=== PATIENT | male | born 1955 | race Two or more races ===

== ENCOUNTER 2021-01-12 12:16 | Outpatient (REF) | payer MEDICARE, SELFPAY ==
[2021-01-12 13:20] LABS: Alanine Aminotransferase 21 U/L (0-40); Albumin Level 4.4 g/dL (3.5-5.0); Alkaline Phosphatase 73 U/L (39-117); Aspartate Amino Transferase 23 U/L (5-37); Bilirubin Direct 0.2 mg/dL (0.0-0.5); Bilirubin Total 0.6 mg/dL (0.0-1.0); Cholesterol 167 mg/dL; Glucose Fasting 127 mg/dL (60-99); HDL Cholesterol 67 mg/dL; LDL Cholesterol Calculated 92 mg/dl; Total Protein 6.9 g/dL (6.5-8.0); Triglycerides 44 mg/dL
[2021-01-12 13:52] LABS: Estimated Average Glucose 140 mg/dL; Hemoglobin A1c % 6.5 %
== END 2021-01-12 12:17 | disposition home or self-care (01) ==
LOC: HO.LNP 12:16
PROVIDERS: PCP Internal Medicine; Visit Provider Internal Medicine
DX: E11.9 Type 2 diabetes mellitus without complications (principal); E78.00 Pure hypercholesterolemia, unspecified
CPT/HCPCS: 80061; 80076; 82947; 83036

== ENCOUNTER 2021-07-18 10:34 | Outpatient (REF) | payer MEDICARE, SELFPAY ==
[2021-07-18 10:38] LABS: MANUAL DIFF FLAG NO
[2021-07-18 10:47] LABS: Basophils Absolute Auto 0.1 X10*3/uL (0.0-0.2); Eosinophils Absolute Auto 0.2 X10*3/uL (0.0-0.4); Eosinophils Percent Auto 2.7 % (0-4); Hematocrit 43.9 % (42-52); Hemoglobin 14.6 g/dl (14.0-18.0); Imm Gran Abs Auto 0.02 X10*3/uL (0.00-0.03); Imm Gran Pct Auto 0.2 % (0.0-0.4); Lymphocytes Absolute Auto 2.4 X10*3/uL (1.2-4.9); Lymphocytes Percent Auto 27.1 % (20-40); Mean Corpuscular HGB Conc 33.3 g/dl (31.0-36.0); Mean Corpuscular Hemoglobin 30.2 pg (27.0-33.0); Mean Corpuscular Volume 90.7 fL (80-98); Mean Platelet Volume 9.3 fL (9.4-12.4); Monocytes Absolute Auto 0.8 X10*3/uL (0.1-1.2); Monocytes Percent Auto 8.6 % (2-11); Neutrophils Absolute Auto 5.3 X10*3/uL (2.0-8.3); Neutrophils Percent Auto 60.4 % (45-73); Platelet Count 348 X10*3/uL (160-400); Red Blood Count 4.84 X10*6/uL (4.60-5.80); Red Cell Distribution Width 13.2 % (11.0-16.0); White Blood Count 8.8 X10*3/uL (4.8-10.8)
[2021-07-18 10:57] LABS: Glucose Urine UA NEG (NEG); Leukocyte Esterase Urine NEG (NEG); Nitrite Urine NEG (NEG); Urine Blood NEG (NEG); Urine Ketones NEG (NEG); Urine Protein NEG (NEG-TRACE)
[2021-07-18 11:00] LABS: Estimated Average Glucose 140 mg/dL; Hemoglobin A1c % 6.5 %
[2021-07-18 11:03] LABS: Appearance Urine CLEAR; Color Urine YELLOW
[2021-07-18 11:48] LABS: Alanine Aminotransferase 20 U/L (0-40); Albumin Level 4.5 g/dL (3.5-5.0); Alkaline Phosphatase 64 U/L (39-117); Anion Gap 13 (12-20); Aspartate Amino Transferase 17 U/L (5-37); Bilirubin Total 0.4 mg/dL (0.0-1.0); Blood Urea Nitrogen 24 mg/dL (9-16); Calcium 9.5 mg/dL (8.4-10.2); Carbon Dioxide 27 mmol/L (22-29); Chloride 104 mmol/L (96-108); Cholesterol 183 mg/dL; Estimated Glomerular Filt Rate > 60; Glucose Fasting 140 mg/dL (60-99); HDL Cholesterol 76 mg/dL; LDL Cholesterol Calculated 86 mg/dl; Potassium 4.4 mmol/L (3.3-5.1); Sodium 140 mmol/L (135-145); Total Protein 7.2 g/dL (6.5-8.0); Triglycerides 106 mg/dL
[2021-07-18 11:59] LABS: Creatinine Urine 130.43 mg/dL; Microalbum/Creatinine Ratio Ur 6.1 ug/mg cr
[2021-07-18 13:12] LABS: Reflex LDLD? No
== END 2021-07-18 10:35 | disposition home or self-care (01) ==
LOC: HO.LNP 10:34
PROVIDERS: Visit Provider Internal Medicine
DX: Z00.00 Encounter for general adult medical examination without abnormal findings (principal); E78.00 Pure hypercholesterolemia, unspecified; E11.9 Type 2 diabetes mellitus without complications
CPT/HCPCS: 80053; 80061; 81003; 82043; 83036; 84153; 85025

== ENCOUNTER 2021-08-21 10:19 | Outpatient (REF) | payer MEDICARE, SELFPAY ==
[2021-08-21 11:03] LABS: Blood Urea Nitrogen 17 mg/dL (9-16); Estimated Glomerular Filt Rate > 60
[2021-08-21 11:25] LABS: Prostate Specific Antigen 2.06 ng/mL (<0.05-4.0)
== END 2021-08-21 10:20 | disposition home or self-care (01) ==
LOC: HO.LNP 10:19
PROVIDERS: Visit Provider Internal Medicine
DX: Z12.5 Encounter for screening for malignant neoplasm of prostate (principal); K58.0 Irritable bowel syndrome with diarrhea
CPT/HCPCS: 82565; 84153; 84520

== ENCOUNTER 2021-10-16 10:27 | Outpatient (REF) | payer MEDICARE, SELFPAY ==
[2021-10-16 11:29] LABS: PSA,Total (Free>4and<10) 1.94 ng/mL (0.00-4.00)
== END 2021-10-16 10:28 | disposition home or self-care (01) ==
LOC: HO.LNP 10:27
PROVIDERS: Visit Provider Internal Medicine
DX: R97.20 Elevated prostate specific antigen [PSA] (principal)
CPT/HCPCS: 84153

== ENCOUNTER 2022-01-18 11:07 | Outpatient (REF) | payer MEDICARE, SELFPAY ==
[2022-01-18 12:19] LABS: Estimated Average Glucose 163 mg/dL; Hemoglobin A1c % 7.3 %
[2022-01-18 12:33] LABS: Cholesterol 194 mg/dL; HDL Cholesterol 82 mg/dL; LDL Cholesterol Calculated 100 mg/dl; Triglycerides 61 mg/dL
== END 2022-01-18 11:08 | disposition home or self-care (01) ==
LOC: HO.LNP 11:07
PROVIDERS: PCP Internal Medicine; Visit Provider Internal Medicine
DX: E11.9 Type 2 diabetes mellitus without complications (principal); E78.00 Pure hypercholesterolemia, unspecified
CPT/HCPCS: 80061; 83036

== ENCOUNTER 2022-07-19 10:32 | Outpatient (REF) | payer MEDICARE, SELFPAY ==
[2022-07-19 10:42] LABS: MANUAL DIFF FLAG NO
[2022-07-19 11:02] LABS: Appearance Urine Clear; Color Urine Yellow; Glucose Urine UA Negative (Negative); Leukocyte Esterase Urine Negative (Negative); Nitrite Urine Negative (Negative); PH 5.5 (5.0-8.0); Specific Gravity - Urine 1.015 (1.005-1.025); Urine Blood Negative (Negative); Urine Ketones Negative (Negative); Urine Protein Negative (Neg-Trace)
[2022-07-19 11:05] LABS: Alanine Aminotransferase 26 U/L (0-40); Albumin Level 4.4 g/dL (3.5-5.0); Alkaline Phosphatase 69 U/L (39-117); Anion Gap 14 (12-20); Aspartate Amino Transferase 27 U/L (5-37); Bacteria Urine None Seen (None Seen); Bilirubin Total 0.5 mg/dL (0.0-1.0); Blood Urea Nitrogen 22 mg/dL (9-16); Calcium 9.8 mg/dL (8.4-10.2); Carbon Dioxide 27 mmol/L (22-29); Chloride 102 mmol/L (96-108); Cholesterol 188 mg/dL; Estimated Glomerular Filt Rate > 60; Glucose Fasting 140 mg/dL (60-99); HDL Cholesterol 84 mg/dL; Hyaline Casts Urine 0-2 /LPF (0-2); LDL Cholesterol Calculated 92 mg/dl; Potassium 4.5 mmol/L (3.3-5.1); RBC Urine 0-2 /HPF (0-2); Sodium 138 mmol/L (135-145); Squamous Epithelial Cell Urine 0-2 /HPF (0-2); Total Protein 7.2 g/dL (6.5-8.0); Triglycerides 62 mg/dL; WBC Urine 0-5 /HPF (0-5)
[2022-07-19 11:17] LABS: Estimated Average Glucose 148 mg/dL; Hemoglobin A1c % 6.8 %
[2022-07-19 11:19] LABS: Basophils Absolute Auto 0.1 X10*3/uL (0.0-0.2); Basophils Percent Auto 1.2 % (0-2); Eosinophils Absolute Auto 0.3 X10*3/uL (0.0-0.4); Eosinophils Percent Auto 3.5 % (0-4); Hematocrit 43.3 % (42.0-52.0); Hemoglobin 14.6 g/dl (14.0-18.0); Imm Gran Abs Auto 0.02 X10*3/uL (0.00-0.03); Imm Gran Pct Auto 0.2 % (0.0-0.4); Lymphocytes Absolute Auto 2.3 X10*3/uL (1.2-4.9); Lymphocytes Percent Auto 27.2 % (20-40); Mean Corpuscular HGB Conc 33.7 g/dl (31.0-36.0); Mean Corpuscular Hemoglobin 30.2 pg (27.0-33.0); Mean Corpuscular Volume 89.6 fL (80.0-98.0); Mean Platelet Volume 9.1 fL (9.4-12.4); Monocytes Absolute Auto 0.8 X10*3/uL (0.1-1.2); Monocytes Percent Auto 9.7 % (2-11); Neutrophils Absolute Auto 4.8 x10*3/uL (2.0-8.3); Neutrophils Percent Auto 58.2 % (45-73); Platelet Count 352 X10*3/uL (160-400); Red Blood Count 4.83 X10*6/uL (4.60-5.80); Red Cell Distribution Width 12.9 % (11.0-16.0); White Blood Count 8.3 X10*3/uL (4.8-10.8)
[2022-07-19 11:21] LABS: Creatinine Urine 59.57 mg/dL; Microalbumin Urine < 5.0 mg/L
[2022-07-19 11:22] LABS: PSA,Total (Free>4and<10) 2.19 ng/mL (0.00-4.00)
== END 2022-07-19 10:33 | disposition home or self-care (01) ==
LOC: HO.LNP 10:32
PROVIDERS: Visit Provider Internal Medicine
DX: Z00.00 Encounter for general adult medical examination without abnormal findings (principal); E11.9 Type 2 diabetes mellitus without complications; E78.00 Pure hypercholesterolemia, unspecified; Z12.5 Encounter for screening for malignant neoplasm of prostate
CPT/HCPCS: 80053; 80061; 81001; 82043; 83036; 84153; 85025

== ENCOUNTER 2022-08-15 15:01 | Outpatient (REF) | payer MEDICARE, SELFPAY ==
--- NOTE | ~2022-08-15 | XR_ITS ---
EXAMINATION: XR LUMBOSACRAL SPINE WITH OBLIQUES CLINICAL INFORMATION: Low back pain. Radiculopathy. COMPARISON: 06/22/2018 TECHNIQUE: AP, both oblique, and lateral views of the lumbar spine. Lateral view of the lumbosacral junction. FINDINGS: Multilevel lumbar degenerative disc disease is most pronounced at L5-S1, characterized by loss of intervertebral disc head with vacuum phenomenon, endplate osteophytes, and endplate sclerosis. There is more moderate degenerative disc disease at L2-L3 and mild degenerative disease at the other lumbar levels. Mild multilevel facet arthropathy. Vertebral body heights are normal. No fracture or spondylolisthesis. No pars defects. SI joints are normal. Soft tissues are unremarkable. XR/XR lumbar spine 4V min IMPRESSION: Multilevel degenerative disc disease in the lumbar spine, [id number] at L5-S1 and more moderate at L2-L3. No acute osseous findings.
== END 2022-08-15 15:02 | disposition home or self-care (01) ==
LOC: HO.XRAY 15:01
PROVIDERS: PCP Internal Medicine; Visit Provider Student in an Organized Health Care Education/Training Program
DX: M54.16 Radiculopathy, lumbar region (principal)
CPT/HCPCS: 72110

== ENCOUNTER → 2022-09-05 08:49 | Outpatient (BNVA) | payer MEDICARE, SELFPAY | PROVIDERS: PCP Internal Medicine; Referring Provider Internal Medicine; Visit Provider Surgery | DX: K64.5 Perianal venous thrombosis (principal) | CPT/HCPCS: 99202 ==

== ENCOUNTER 2023-01-18 11:17 | Outpatient (REF) | payer MEDICARE, SELFPAY ==
[2023-01-18 12:39] LABS: Estimated Average Glucose 166 mg/dL; Hemoglobin A1c % 7.4 %
[2023-01-18 13:17] LABS: Alanine Aminotransferase 15 U/L (0-40); Albumin Level 4.2 g/dL (3.5-5.0); Alkaline Phosphatase 64 U/L (39-117); Aspartate Amino Transferase 18 U/L (5-37); Bilirubin Direct 0.2 mg/dL (0.0-0.5); Bilirubin Total 0.6 mg/dL (0.0-1.0); Cholesterol 163 mg/dL; Glucose Fasting 148 mg/dL (60-99); HDL Cholesterol 68 mg/dL; LDL Cholesterol Calculated 84 mg/dl; Total Protein 6.6 g/dL (6.5-8.0); Triglycerides 58 mg/dL
[2023-01-18 13:43] LABS: Reflex LDLD? No
== END 2023-01-18 11:18 | disposition home or self-care (01) ==
LOC: HO.LNP 11:17
PROVIDERS: Visit Provider Internal Medicine
DX: E11.9 Type 2 diabetes mellitus without complications (principal); E78.00 Pure hypercholesterolemia, unspecified
CPT/HCPCS: 80061; 80076; 82947; 83036

== ENCOUNTER 2023-07-23 10:21 | Outpatient (REF) | payer MEDICARE, SELFPAY ==
[2023-07-23 10:25] LABS: MANUAL DIFF FLAG NO
[2023-07-23 10:32] LABS: Appearance Urine Clear; Color Urine Yellow; Glucose Urine UA Negative (Negative); Leukocyte Esterase Urine Negative (Negative); Nitrite Urine Negative (Negative); PH 5.5 (5.0-9.0); Specific Gravity - Urine 1.015 (1.005-1.025); Urine Blood Negative (Negative); Urine Ketones Negative (Negative); Urine Protein Negative (Neg-Trace)
[2023-07-23 10:34] LABS: Bacteria Urine None Seen (None Seen); Hyaline Casts Urine 0-2 /LPF (0-2); RBC Urine 0-2 /HPF (0-2); Squamous Epithelial Cell Urine 0-2 /HPF (0-2); WBC Urine 0-5 /HPF (0-5)
[2023-07-23 10:41] LABS: Alanine Aminotransferase 17 U/L (0-40); Albumin Level 4.1 g/dL (3.5-5.0); Alkaline Phosphatase 61 U/L (39-117); Anion Gap 12 (12-20); Aspartate Amino Transferase 23 U/L (5-37); Bilirubin Total 0.4 mg/dL (0.0-1.0); Blood Urea Nitrogen 18 mg/dL (9-16); Calcium 9.9 mg/dL (8.4-10.2); Carbon Dioxide 26 mmol/L (22-29); Chloride 106 mmol/L (96-108); Cholesterol 164 mg/dL (<200); Estimated Average Glucose 154 mg/dL; Estimated Glomerular Filt Rate > 60; Glucose Fasting 152 mg/dL (60-99); HDL Cholesterol 68 mg/dL (>40); LDL Cholesterol Calculated 84 mg/dL (<100); Potassium 4.1 mmol/L (3.3-5.1); Sodium 140 mmol/L (135-145); Total Protein 6.8 g/dL (6.5-8.0); Triglycerides 64 mg/dL (<150)
[2023-07-23 10:42] LABS: Basophils Absolute Auto 0.1 X10*3/uL (0.0-0.2); Basophils Percent Auto 1.8 % (0-2); Eosinophils Absolute Auto 0.3 X10*3/uL (0.0-0.4); Eosinophils Percent Auto 5.3 % (0-4); Hemoglobin 14.3 g/dl (14.0-18.0); Imm Gran Abs Auto 0.01 X10*3/uL (0.00-0.03); Imm Gran Pct Auto 0.2 % (0.0-0.4); Lymphocytes Percent Auto 31.3 % (20-40); Mean Corpuscular Hemoglobin 29.9 pg (27.0-33.0); Mean Corpuscular Volume 87.9 fL (80.0-98.0); Mean Platelet Volume 9.6 fL (9.4-12.4); Monocytes Absolute Auto 0.7 X10*3/uL (0.1-1.2); Monocytes Percent Auto 10.6 % (2-11); Neutrophils Absolute Auto 3.2 x10*3/uL (2.0-8.3); Neutrophils Percent Auto 50.8 % (45-73); Platelet Count 334 X10*3/uL (160-400); Red Blood Count 4.78 X10*6/uL (4.60-5.80); Red Cell Distribution Width 12.5 % (11.0-16.0); White Blood Count 6.2 X10*3/uL (4.8-10.8)
[2023-07-23 11:02] LABS: PSA,Total (Free>4and<10) 3.36 ng/mL (0.00-4.00)
[2023-07-23 11:05] LABS: Creatinine Urine 71.36 mg/dL; Microalbumin Urine < 5.0 mg/L
== END 2023-07-23 10:22 | disposition home or self-care (01) ==
LOC: HO.LNP 10:21
PROVIDERS: Visit Provider Internal Medicine
DX: Z00.00 Encounter for general adult medical examination without abnormal findings (principal); E11.9 Type 2 diabetes mellitus without complications; E78.00 Pure hypercholesterolemia, unspecified; Z12.5 Encounter for screening for malignant neoplasm of prostate
CPT/HCPCS: 80053; 80061; 81001; 82043; 83036; 84153; 85025

== ENCOUNTER 2023-11-05 11:10 | Outpatient (REF) | payer MEDICARE, SELFPAY ==
[2023-11-05 11:53] LABS: Glucose Fasting 152 mg/dL (60-99)
[2023-11-05 12:10] LABS: PSA,Total (Free>4and<10) 3.18 ng/mL (0.00-4.00)
== END 2023-11-05 11:11 | disposition home or self-care (01) ==
LOC: HO.LNP 11:10
PROVIDERS: Visit Provider Internal Medicine
DX: R97.20 Elevated prostate specific antigen [PSA] (principal); Z12.5 Encounter for screening for malignant neoplasm of prostate
CPT/HCPCS: 82947; 84153

== ENCOUNTER 2024-08-03 08:52 | Outpatient (AMB) | payer MEDICARE, SELFPAY ==
--- NOTE | 2024-08-03 08:59 | HO.SPINEOV ---
Intake Visit Reasons: LBP pain going down to right hip and to the knee Intake Note: Mr. 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 He is a 68-year-old gentleman presents to the office today for evaluation of chronic midline low back pain going down into his right anterior lateral thigh ending at his knee. It started maybe 3 or 4 years ago but has only gotten worse. When he is sleeping at night it seems to be particularly worse. He can not get comfortable and ends up waking up at 03:00 to do a bunch of stretching to try to make it go away. During the day however, he has a very hard time getting going in the morning and as the day goes on he will also experience more pain. Extended walking is very difficult. He is getting fed up because he has had significant loss of quality of life. He is a diabetic and has been unable to do exercise consistently which obviously affects his blood sugars. He underwent medication trials including ibuprofen, oxycodone and gabapentin. The ibuprofen helps a little bit but the rest of the medications do not do much. He underwent a right L4 and L5 TFESI with about 50% relief of his symptoms for few weeks. He comes in today see us for an evaluation to see if there something that can be done surgically. He had an MRI done showing degenerative disc disease and nerve compression. PMH: He is a diabetic, his last A1c in the hospital here at [facility] was 7. That was a year ago. He is history of high cholesterol, rotator cuff surgery but other than that he has been healthy. No cardiopulmonary disease, strokes, liver disease, major abdominal surgery, bleeding disorders, blood clots, renal disease. Social hx: He does not smoke, drink use any recreational drugs Medications: Ibuprofen, gabapentin, magnesium, Lipitor, metformin and oxycodone Allergies: None Physical exam: He is awake alert oriented no acute distress, does have some atrophy of his right quadriceps, absent patellar reflex but his strength is grossly intact. Slightly antalgic gait. Midline tenderness and back pain. Imaging review: He has an MRI done at the [facility] imaging center from December of 2023 showing significant collapse of the L4-5 disc with severe right L4 foraminal stenosis. There is also disc collapse at L5-S1. There are Modic type 1 endplate changes at L4-5. There may be some Modic type 1 changes at L5-S1 as well. There is some mild foraminal narrowing in the L5 foramen. Impression: 68-year-old gentleman referred to the office today for what sounds like a right L4 radiculopathy and midline back pain secondary to the collapse of the disc at L4-5 on the right. There may also be some overlap of his back pain with the L5-S1 disc is there significant collapse there as well. There is type 1 Modic endplate changes. The gentleman's quality of life has been suffering significantly. He has been unable to go to the gym and exercise. He is unable to sleep. He feels as though it is getting to the point where he has minimal endurance to do much of anything he enjoys. He is tried medications. He tried injections and these did temporarily work. I reviewed all his MRI imaging with him, explained to him the pertinent findings. We talked about the fact that to treat the back pain and the radicular symptoms generally Dr. Cazares would choose to do spinal fusion surgery. This would be either a single-level at L4-5 or the L5-S1 included as well. I would need to review the films with Dr. Cazares to finalize the exact plan. We discussed 2 approaches that he commonly uses, this would include the trans Kambin approach and the oblique lumbar interbody fusion approach. All pertinent risks, benefits, recovery, expectations limitations were discussed. Success rate quoted for improvement in the leg pain and 90% in the back pain is 60-70%. The patient is going to think about it and get back to me how he would like to proceed. In the meantime I will review all the imaging with Dr. Cazares just have a plan in place in case he does want to go ahead with surgery. Thank you for allowing us to care for your patient. The total time spent with this visit with this patient was 45 minutes reviewing history, physical exam, lumbar imaging review, and implementation of treatment plan or further diagnostic testing Michael Cazares MD,PhD [facility] Coding Level of Care Code New Pt Level 4 (87116) Diagnoses Lumbar degenerative disc disease M51.36
== END 2024-08-03 09:33 | disposition home or self-care (01) ==
PROVIDERS: PCP Internal Medicine; Referring Provider Physician Assistant; Visit Provider Physician Assistant
DX: M51.36 Other intervertebral disc degeneration, lumbar region (principal)
CPT/HCPCS: 99204

== ENCOUNTER → 2024-08-03 08:52 | Outpatient (BNVA) | payer MEDICARE, SELFPAY | PROVIDERS: PCP Internal Medicine; Visit Provider Physician Assistant | DX: M51.36 Other intervertebral disc degeneration, lumbar region (principal) | CPT/HCPCS: 99202 ==

== ENCOUNTER 2024-08-11 11:27 | Outpatient (REF) | payer MEDICARE, SELFPAY ==
[2024-08-11 11:32] LABS: MANUAL DIFF FLAG NO
[2024-08-11 11:38] LABS: Appearance Urine Clear; Color Urine Yellow; Glucose Urine UA Negative (Negative); Leukocyte Esterase Urine Negative (Negative); Nitrite Urine Negative (Negative); PH 5.5 (5.0-9.0); Specific Gravity - Urine 1.025 (1.005-1.025); Urine Blood Negative (Negative); Urine Ketones Negative (Negative); Urine Protein Negative (Neg-Trace)
[2024-08-11 11:40] LABS: Bacteria Urine None Seen (None Seen); Hyaline Casts Urine 0-2 /LPF (0-2); RBC Urine 0-2 /HPF (0-2); Squamous Epithelial Cell Urine 0-2 /HPF (0-2); WBC Urine 0-5 /HPF (0-5)
[2024-08-11 11:55] LABS: Basophils Absolute Auto 0.1 X10*3/uL (0.0-0.2); Basophils Percent Auto 1.4 % (0-2); Eosinophils Absolute Auto 0.4 X10*3/uL (0.0-0.4); Eosinophils Percent Auto 4.2 % (0-4); Hemoglobin 13.6 g/dl (14.0-18.0); Imm Gran Abs Auto 0.03 X10*3/uL (0.00-0.03); Imm Gran Pct Auto 0.3 % (0.0-0.4); Lymphocytes Absolute Auto 2.7 X10*3/uL (1.2-4.9); Lymphocytes Percent Auto 30.7 % (20-40); Mean Corpuscular HGB Conc 33.2 g/dl (31.0-36.0); Mean Corpuscular Volume 90.3 fL (80.0-98.0); Mean Platelet Volume 8.9 fL (9.4-12.4); Monocytes Absolute Auto 0.8 X10*3/uL (0.1-1.2); Monocytes Percent Auto 9.4 % (2-11); Neutrophils Absolute Auto 4.8 x10*3/uL (2.0-8.3); Platelet Count 394 X10*3/uL (160-400); Red Blood Count 4.54 X10*6/uL (4.60-5.80); Red Cell Distribution Width 13.1 % (11.0-16.0); White Blood Count 8.9 X10*3/uL (4.8-10.8)
[2024-08-11 11:57] LABS: Estimated Average Glucose 151 mg/dL; Hemoglobin A1c % 6.9 % (<6.0)
[2024-08-11 12:02] LABS: Alanine Aminotransferase 14 U/L (0-40); Alkaline Phosphatase 71 U/L (39-117); Anion Gap 10 (12-20); Aspartate Amino Transferase 17 U/L (5-37); Bilirubin Total 0.1 mg/dL (0.0-1.0); Blood Urea Nitrogen 20 mg/dL (9-16); Calcium 9.5 mg/dL (8.4-10.2); Carbon Dioxide 27 mmol/L (22-29); Chloride 106 mmol/L (96-108); Cholesterol 157 mg/dL (<200); Estimated Glomerular Filt Rate > 60; Glucose Fasting 138 mg/dL (60-99); HDL Cholesterol 67 mg/dL (>40); LDL Cholesterol Calculated 80 mg/dL (<100); Potassium 4.1 mmol/L (3.3-5.1); Sodium 139 mmol/L (135-145); Total Protein 6.8 g/dL (6.5-8.0); Triglycerides 50 mg/dL (<150)
[2024-08-11 12:14] LABS: PSA,Total (Free>4and<10) 2.97 ng/mL (0.00-4.00)
[2024-08-11 12:15] LABS: Creatinine Urine 105.12 mg/dL; Microalbum/Creatinine Ratio Ur 7.6 ug/mg cr (<30)
== END 2024-08-11 11:28 | disposition home or self-care (01) ==
LOC: HO.LNP 11:27
PROVIDERS: Visit Provider Internal Medicine
DX: Z00.00 Encounter for general adult medical examination without abnormal findings (principal); E11.9 Type 2 diabetes mellitus without complications; Z12.5 Encounter for screening for malignant neoplasm of prostate
CPT/HCPCS: 80053; 80061; 81001; 82043; 82570; 83036; 84153; 85025

== ENCOUNTER 2024-09-28 08:53 | Outpatient (REF) | payer MEDICARE, SELFPAY | END 2024-09-28 08:54 | disposition home or self-care (01) | LOC: HO.HOSX 08:53 | PROVIDERS: Visit Provider Orthopaedic Surgery | DX: M25.551 Pain in right hip (principal); M51.369 Other intervertebral disc degeneration, lumbar region without mention of lumbar back pain or lower extremity pain | CPT/HCPCS: 72170; 99202 ==

== ENCOUNTER 2024-09-28 09:44 | Outpatient (AMB) | payer MEDICARE, SELFPAY ==
--- NOTE | 2024-09-28 09:46 | A.OFFVIS_ITS ---
Vital Signs 09/28/24 09:55 Height 5 ft 4 in Weight 140 lb BMI 24.0 Intake Visit Reasons: [employer]- RT hip pain Intake Note: Leo is a 68 year old male who presents today as a new patient with complaints of right hip pain. He reports history of pain ongoing for many years now. He has snapping of the right hip with various movements, Pain is left on the lateral aspect of the hip and occasionally radiates down the leg. He has done physical therapy in the past and is booked to restart in a few weeks. Patient was seen with [facility] for lower back pain radiating down the right lower extremity, who recommends a oblique/anterior lumbar interbody fusion from L4-5-L5-S1 which he does not want to do. Allergies No Known Allergies [No Known Allergies*] Allergy (Verified 09/28/24 09:57) HPI HPI [employer]- RT hip pain: Details: Leo is a 68 year old male who presents today as a new patient with complaints of right hip pain. He reports history of pain ongoing for many years now. He has snapping of the right hip with various movements, Pain is felt on the lateral aspect of the hip and occasionally radiates down the leg. He has done physical therapy in the past and is booked to restart in a few weeks. Patient was seen with [facility] for lower back pain radiating down the right lower extremity, . They ecommend a interbody fusion L4-S1 which he does not want to do. He states that since he saw them he has stopped exercising and his back feels good. He states he has no pain. He has no numbness or tingling. His only complaint is muscle loss in his right thigh. Denies numbness and tingling. [facility] Medical History Thrombosed external hemorrhoid Diabetes mellitus Surgical History Hx of shoulder surgery Family History Other Prostate cancer Social History Alcohol intake: never Patient Tobacco Use Status: Never used Tobacco Physical Exam Vital Signs: BMI result Body Mass Index 24.0 Extrem Other: There is a normal gait pattern with tenderness to palpation over the right greater trochanter that is mild. He does have a atrophied right quad with 4+ out of 5 strength. He otherwise has normal musculoskeletal exam of the bilateral lower extremities. He has no groin pain with hip range of motion. Results Reviewed Results Reviewed: I personally reviewed relevant radiographs. Normal hip radiograph Assessment & Plan Assessment & Plan (1) Lumbar degenerative disc disease: Code(s): M51.36 - Other intervertebral disc degeneration, lumbar region Category: Medical Plan: This is a active 68-year-old gentleman with lumbar degenerative disc disease. He comes to me extensively for hip pain although he has some mild greater trochanteric bursitis and his hip radiographs are normal with normal exam. He states he does not want a operate on his back. I recommend that he go to physical therapy and that he focus on core stabilization. No treatable hip pathology present. Orders: Orders XR pelvis 1-2V Today M25.559 - Pain in unspecified hip Coding Level of Care Code New Pt Level 3 (55032) Diagnoses Lumbar degenerative disc disease M51.36
[2024-09-28 09:55] VITALS: BMI 24.0
== END 2024-09-28 10:23 | disposition home or self-care (01) ==
LOC: HO.HOS 09:45
PROVIDERS: PCP Internal Medicine; Visit Provider Orthopaedic Surgery
DX: M51.369 Other intervertebral disc degeneration, lumbar region without mention of lumbar back pain or lower extremity pain (principal)
CPT/HCPCS: 99203

== ENCOUNTER → 2024-10-02 08:09 | Outpatient (REF) | payer MEDICARE, SELFPAY ==
--- NOTE | 2024-10-02 08:12 | CA_ITS ---
Transthoracic Echocardiogram Patient (Last, First, Middle): Leo Dejesus, Gender: Male Date of : 1955 Age: 68 Procedure Date: 10/02/2024 Procedure Type: Transthoracic Echocardiogram Location: OP Height: 162.56 cm Weight: 63.5 kg BSA: 1.68 m2 Heart Rate: bpm BP: 122 / 60 mmHg Dental Appliance Mechanic: Referring MD: Tad Guerra MD Transit Worker: Rajat Henning MD Symptoms: R01.1 CARDIAC MURMUR Study Quality: Excellent ECG Rhythm: Sinus Conclusions: - 1. Normal LV ejection fraction of 60 65% with grade 1 diastolic dysfunction 2. Calcific aortic valve changes noted with mild aortic stenosis and regurgitation 3. Normal RV systolic pressure 4. No gross pericardial effusion Findings Left Ventricle Normal left ventricular size, thickness, and systolic function. The visually estimated ejection fraction is between 60-65%. Spectral Doppler is indicative of an impaired relaxation filling pattern. E/E prime ratio is <8, consistent with normal filling pressures. Evidence suggests grade I (mild) diastolic dysfunction. Right Ventricle Normal right ventricular cavity size and systolic function. Atria Both atria are normal in size. There is no evidence of interatrial shunt. Aortic Valve There is mild calcification of the aortic valve. There is mild aortic valve stenosis. The peak aortic velocity is 2.19 m/s with a calculated peak gradient of 19 mmHg. The mean gradient is 9 mmHg. The aortic valve area is 1.61 cm2. There is mild aortic valve regurgitation. Mitral Valve Normal mitral valve structure and function. There is mild mitral annular calcification. There is trace mitral valve regurgitation. There is no mitral valve stenosis. Pulmonic Valve The pulmonic valve is likely normal. Tricuspid Valve Normal tricuspid valve structure. There is trace tricuspid valve regurgitation. The right ventricular systolic pressure is normal. The right ventricular systolic pressure is 25 mmHg. Normal right atrial pressure. There is no evidence of pulmonary hypertension. Great Vessels All visible segments of the aorta are normal in size. The pulmonary artery was not well visualized. There is no dilatation of the ascending aorta measuring 2.70 cm. Small plaque is seen in the sino tubular ridge. Venous The inferior vena cava is normal in size and collapses greater than 50% with inspiration. Pericardium/Pleural There is no evidence of pericardial effusion. Prior Study Comparison No prior study available for comparison. Measurements 2D Linear Measurements IVSd: 1.11 0.6-0.9/0.6-1.0 cm LVIDd: 4.09 3.9-5.3/4.2-5.9 cm LVIDd Index: 2.43 2.4-3.2/2.2-3.1 cm/m2 LVIDs: 2.35 2.0-3.6 cm LVPWd: 1.12 0.7-1.1 cm Ao Root: 3.00 2.1-3.5 cm LA Diam: 3.30 2.7-3.8/3.0-4.0 cm LAIDs Index: 1.96 1.5-2.3 cm/m2 LV Mass: 191.38 67-162/88-224 g LV Mass Index: 113.92 43-95/49-115 g/m2 LVOT Diam: 2.10 3.0+(-)1.3 cm Mitral Valve MV Pk E: 0.67 MV PK A: 1.04 MV Decel Time: 152.00 E/A: 0.60 E'Lateral: 8.16 E'Medial: 5.66 E/E' Med: 11.90 E/E' Lat: 8.20 PHT: 45.00 MVA PHT: 4.89 Decel Carlton: 4.43 Aortic Valve AoV Pk Billy: 2.19 AoV Mn Billy: 1.31 AoV VTI: 0.46 AoV Pk Grad: 19.00 Aov Mn Grad: 9.00 ONIEL Cont.VTI: 1.61 LVOT LVOT Pk Billy: 0.96 LVOT Mn Billy: 0.61 LVOT VTI: 0.21 LVOT Pk Grad: 4.00 LVOT Mn Grad: 2.00 LVOT Diam: 2.10 LVOT Area: 3.46 Diastolic Function MV Pk E: 0.67 MV Pk A: 1.04 E/A: 0.60 E'Medial: 5.66 E/E' Med: 11.90 E' Laterial: 8.16 E/E' Lat: 8.20 Right Ventricle TAPSE (mm): 24.00 TVS' Billy: 11.00 Tricuspid Valve TR Pk Billy: 2.32 TR Pk Grad: 22.00 RA Press: 3.00 RVSP: 25.00 Great Vessels Aorta Ao Root-2D: 3.00 2.0-3.7 cm Ao Asc: 2.70 2.1-3.4 cm Pulmonary Valve PV Pk Billy: 0.98 Peak PV Grad: 4.00 Updated in Other Vendor System with Status of Final Rajat Henning MD electronically signed on 10/02/2024 3:21:43 PM with status of Final
== END ==
LOC: HO.CARD 08:09
PROVIDERS: PCP Internal Medicine; Visit Provider Internal Medicine
DX: R01.1 Cardiac murmur, unspecified (principal)
CPT/HCPCS: 93306

== ENCOUNTER → 2024-10-02 08:12 | Outpatient (BNV) | payer MEDICARE, SELFPAY | PROVIDERS: PCP Internal Medicine; Visit Provider Internal Medicine Cardiovascular Disease | DX: I35.2 Nonrheumatic aortic (valve) stenosis with insufficiency (principal); I35.8 Other nonrheumatic aortic valve disorders; I34.81 Nonrheumatic mitral (valve) annulus calcification | CPT/HCPCS: 93306 ==

== ENCOUNTER 2025-02-23 09:56 | Outpatient (REF) | payer MEDICARE, SELFPAY ==
[2025-02-23 10:18] LABS: Estimated Average Glucose 157 mg/dL; Hemoglobin A1C 195.7364 umol/L; Hemoglobin A1c % 7.1 % (<6.0); Total Hemoglobin (HGBA1C) 3600.5667 umol/L
[2025-02-23 10:22] LABS: Alanine Aminotransferase 29 U/L (0-40); Albumin Level 4.1 g/dL (3.5-5.0); Alkaline Phosphatase 66 U/L (39-117); Aspartate Amino Transferase 31 U/L (5-37); Bilirubin Direct 0.2 mg/dL (0.0-0.5); Bilirubin Total 0.5 mg/dL (0.0-1.0); Cholesterol 140 mg/dL (<200); Glucose Fasting 139 mg/dL (60-99); HDL Cholesterol 65 mg/dL (>40); LDL Cholesterol Calculated 60 mg/dL (<100); Total Protein 6.7 g/dL (6.5-8.0); Triglycerides 77 mg/dL (<150)
--- OUTSIDE RECORDS SUMMARY | 2025-02-23 11:37 | XMS_ITS ---
Author Organization Tad Guerra MD Address [address] [place] [phone] Care Team Providers Care Dairy Equipment Repairer Name Role Phone Tad Guerra Primary Care Provider [phone] Results Component Value Reference Range Notes Hemoglobin A1c (Not yet revi ewed by provider) Interpretation: Performing Lab:[facility], [address] [place] [phone] Notes/Report: Hemoglobin A1c % 7.1 <6.0 % [...] average glucose, using the formula of the A2R-Eerywll Average Glucose study (ADAG), Diabetes Care, Vol.31,#8, Jun. 2007 REASON FOR VISIT fasting lipids Encounters Encounter Location Date Provider Diagnosis Tad Guerra MD [address] [place] [phone] 02/23/2025 Tad Guerra Type 2 diabetes toni itus without complication, without long-term current use of insulin E11.9 and Hypercholesterolemia E78.00 Assessments Encounter Date Diagnosis (ICD Code) Assessment Notes Treatment Notes Treatment Clinical Notes Section Notes 02/23/2025 Type 2 diabetes toni itus without complication, without long-term current use of insulin (ICD-10 - E11.9) 02/23/2025 Hypercholesterolemia (ICD-10 - E78.00) Plan Of Treatment Pending Test Test Name Order Date Liver Panel 02/23/2025 Glucose Fasting 02/23/2025 Lipid Panel with Reflex 02/23/2025 Hemoglobin A1c 02/23/2025 Next Appt Details Provider Name:Tad Hogan ier, 03/02/2025 01:30:00 PM, [address] [place] [address], [address], [place], [place], [phone], Provider Name:Tad Hogan ier, 08/26/2025 08:00:00 AM, [address] [place] [address], [address], [place], [place], [phone], Provider Name:Tad Hogan ier, 09/09/2025 01:00:00 PM, [address] [place] [address], Suite [facility], [place], [place], [phone], Progress Notes * BRETT LETOMDOB:1955 (69 yo M)Acc No.[id number]:02/23/2025 Progress Note Patient:?RAH LE Provider:?Tad Guerra MD :1955???Age:69 Y???Sex:Male Mehdi e:02/23/2025 Address:[address] [place], [place] [phone] Subjective: * Chief Complaints: * ???1. Fasting lipids. * Medical History:? Objective: * Vitals:? Assessment: * Assessment: 1.?Type 2 diabetes mellitus without complication, without long-term current use of insulin - E11.9 (Primary)???2.?Hypercholesterolemia - E78.00??? Plan: * Treatment: 2.?Hypercholesterolemia?LAB: Liver Panel ?LAB: Glucose Fasting ?LAB: Lipid Panel with Reflex ?LAB: Hemoglobin A1c (Collection Date & Time - 02/23/2025 07:30 AM) * Procedure Codes:?12745 VENIP UNCT, ROUTINE* * * The named appointment provid er may or may not be the originator of this progress note, and it is not deemed complete until electronically signed by the appointment provider. Sign off status: Pending * Provider:?Tad Guerra MD Date:?0 02/23/2025 Generated for Arlin bean/Aditya/Daviditting on:?02/23/2025 11:36 AM EDT
--- OUTSIDE RECORDS SUMMARY | 2025-02-23 11:37 | XMS_ITS ---
Author Organization Tad Guerra MD Address [address] [place], [place] [phone] Care Team Providers Care Medical Screener Name Role Phone Tad Guerra Primary Care [...] HCl 500 MG take 2 tablet by [facility] twice daily with a meal for 90 days Orally twice a day for 90 days Active Ibuprofen 800 MG TAKE 1 TABLET BY CHEL THREE TIMES A DAY WITH FOOD OR MILK NEEDED FOR 30 DAYS for 30 Active Vital Signs Height 64 in 08/18/2024 Weight 140 lbs 08/18/2024 BMI 24.03 kg/m2 08/18/2024 weight at home is 140 BP not taken at home Encounters Encounter Location Date Provider Diagnosis Tad Guerra MD [address] [place] [phone] 08/18/2024 Tad Guerra COVID-19 U07.1 Assessments Encounter [...] use Next Appt Details Provider Name:Tad guzman, 03/02/2025 01:30:00 PM, [address] [place] [address], [phone], Provider Name:Tad guzman, 08/26/2025 08:00:00 AM, [address] [place] [address], [phone], Provider Name:Tad guzman, 09/09/2025 01:00:00 PM, [address] [place] [address], [phone], Progress Notes * RAH LEDOB:1955 (68 yo M)Acc No.[id number]:08/18/2024 Patient:?RAH LE Provider:?Tad Guerra MD :1955???Age:68 Y???Sex:Male Mehdi e:08/18/2024 Address[place] [id number] Subjective: * Chief Complaints: * ???CovidC/o sore throat, run ny nose x 6 daysVideo * HPI: ???Symptom(s):?Telehealth?Location of provider rendering services:?[address], [address],?Location of patient:?at address listed in demographics for today's visit,?Patient identification confirmed using:?Name, , SSN, Insurance information,?Telehealth method:?Telephone only. Patient not visible to care provider.,?Consent:?Patient verbally consented to treatment, Patient verbally consented to billing insurance company, Patient informed of any privacy concerns related to method of visit,?Total time spend talking with patient (minutes)?21.? patient is a 68 yo male video telehealth isit, here as emergency for covid/ was going to have surgery on back. had shot in back yesterday. and he both have it. had four days. has just a little sore throat. no cough. not very sick. * ROS:?General/Constitutional:?Denies?Chills.?Denies?Fatigue.?Denies?Fever.?Denies?Headache.?ENT:?Patient denies?decreased sense of smell , any loss of taste , sore throat.?Denies?Sore throat.?Respiratory:?Denies?Cough.?Denies?Shortness of breath at rest.?Denies?Shortness of breath with exertion.?Gastrointestinal:?Denies?Diarrhea.?Denies?Nausea.?Musculoskeletal:?Patient denies?muscle aches.?Peripheral Vascular:?Patient denies?red and blue toes.? * Medical History:? * Surgical History:? * Hospitalization/Major Diagno stic Procedure:? * Medications:?TakingIbuprofen 800 MG Tablet TAKE 1 TABLET BY [...] reviewed and reconciled with the patient * Allergies:?N.K.D.A.yes[Aller quentin Verified] Objective: * Vitals:?Ht: 64, Wt:140, BMI: 24.03 weight at home is 140 BP not taken at home. Assessment: * Assessment: 1.?COVID-19 - U07.1 (Primary )? Plan: * Treatment: * Procedure Codes:? * * Sign off status: Completed true * Provider:?Tad Guerra MD Date:?0 08/18/2024 Generated for Arlin bean/Aditya/eTransmitting on:?02/23/2025 11:37 AM EDT History and Physical Notes * HPI (History of Present Illness) Category Sub-Category Detail Notes Category Not es Symptom(s) Telehealth Location of [facility] rendering services:: [address], [address] [...] treatment, Patient verbally consented to billing insurance [employer], Patient informed of any privacy concerns related to method of visit Total time spend talking with patient (m inutes): 21
--- OUTSIDE RECORDS SUMMARY | 2025-02-23 11:37 | XMS_ITS ---
Author Organization Tad Guerra MD Address [address] [place], [place] [phone] Care Team Providers Care Environmental Marketer Name Role Phone Tad Guerra Primary Care Provider [phone] Allergies No Known Allergies Reason For Referral [...] kg/m2 08/31/2024 weight is down 2 pounds [facility] e 9- Encounters Encounter Location Date Provider Diagnosis Tad Guerra MD [address] [facility] [address] [place], [place] [phone] 08/31/2024 Tad Guerra Hip pain, right M25. [...] Details 08/31/2024 08/31/2024, Hip pain right , aTmir Seymour Next Appt Details Follow Up: 6 Months, Reason: dm Provider Name:Tad guzman, 03/02/2025 01:30:00 PM, [address] [place] [address], [address], [phone], Provider Name:Tad krishnar, 08/26/2025 08:00:00 AM, [address] [place] [address], [place] [address], [place], [place], [phone], Provider Name:Tad krishnar, 09/09/2025 01:00:00 PM, [address] [place] [address], [address], [phone], Progress Notes * LE, RAHDOB:1955 (68 yo M)Acc No.[id number]:08/31/2024 Patient:?RAH LE Provider:?Tad Guerra MD :1955???Age:68 Y???Sex:Male Mehdi e:08/31/2024 Address:[address] [place], [place] [phone] Subjective: * Chief Complaints: * ???Annual * HPI: ???Depression Screening:?PHQ-9?Little interest or pleasure in doing things?Not at all,?Feeling down, depressed, or hopeless?Not at all,?Trouble falling or staying asleep, or sleeping too much?Not at all,?Feeling tired or having little energy?Not at all,?Poor appetite or overeating?Not at all,?Feeling bad about yourself or that you are a failure, or have let yourself or your family down?Not at all,?Trouble concentrating on things, such as reading the newspaper or watching television?Not at all,?Moving or speaking so slowly that other people could have noticed; or the opposite, being so fidgety or restless that you have been moving around a lot more than usual?Not at all,?Thoughts that you would be better off or of hurting yourself in some way?Not at all,?Total Score?0.?Interpretation and Intervention?Depression Screening Findings?Negative,?Follow-Up for Depression?: review of PHQ-9 found negative result, no follow-up needed.?Communication Needs:?Communication Needs?Does the patient have a hearing impairment?No,?Does the patient have a vision impairment??Yes,?If yes, what is the vision impairment??Glasses,?Does the patient have a cognition impairment??No.?SDOH Questions:?SDOH Questions?In the past year have you been worried about losing housing??No,?In the past year have you or any family members you live with been unable to get any of the following when it was really needed? Check all that apply:?None.?Symptom(s):? Pt is a 68 yo male here for yearly evaluations/ had some pain in buttocks. * ROS:?General/Constitutional:?Change in appetite?denies.?Chills?denies.?Fever?denies.?Ophthalmologic:?Blurred vision?denies.?Discharge?denies.?Pain?denies.?ENT:?Decreased hearing?denies.?Sore throat?denies.?Swollen glands?denies.?Endocrine:?Cold intolerance?denies.?Excessive thirst?denies.?Heat intolerance?denies.?Weight loss?denies.?Respiratory:?Cough?denies.?Shortness of breath at rest?denies.?Shortness of breath with exertion?denies.?Wheezing?denies.?Cardiovascular:?Chest pain at rest?denies.?Chest pain with exertion?denies.?Irregular heartbeat?denies.?Shortness of breath?denies.?Gastrointestinal:?Abdominal pain?denies.?Change in bowel habits?denies.?Diarrhea?denies.?Nausea?denies.?Rectal bleeding?denies.?Vomiting?denies .?Genitourinary:?Blood in urine?denies.?Difficulty urinating?denies.?Frequent urination?denies.?Musculoskeletal:?Painful joints?denies.?Weakness?denies.?Skin:?Dry skin?denies.?Itching?denies.?Denies?Mole(s),? changes in moles, new moles or any lesions of concern.?Denies?Photosensitivity.?Rash?denies.?Neurologic:?Dizziness?denies.?Fainting?denies.?Headache?denies.? * Medical History:? * Surgical History:? * Hospitalization/Major Diagno stic Procedure:? * Family History:?Father: dece ased 65 yrs.?Mother: alive 83 yrs.?3 brother(s) , 2 sister(s) . 1 son(s) , 1 daughter(s) . .? Mother- Healthy father Prostate Cancer 1 brother cancer, No pertinent family medical history, Denies mental health/substance abuse family history, Denies mental health/substance abuse family history 1 sister 60 stomach cancer. * Social History:?Tobacco Use:?Tobacco Use/Smoking?Patient is a?former smoker,?How long has it been since you last smoked??> 10 years,?Additional Findings: Tobacco Non-User?Former smoker, currently using no form of tobacco.?Drugs/Alcohol:?Alcohol Screen?Did you have a drink containing alcohol in the past year??No,?Points?0,?Interpretation?Negative.?Miscellaneous:?no Caffeine, 1-2 cups per day. Children: yes. Community involvements: yes. Exercise: yes, weights running hiking everyday. Home smoke detector use: yes. Housing: owning. Living with: spouse. Marital status: . Occupation: weeks/months/years, works full-time. Pets: cats: dogs:1 dog. Travel outside of the [place]: yes. * Medications:?TakingIbuprofen 800 MG Tablet TAKE 1 [...] and reconciled with the patient * Allergies:?N.K.D.A.yes[Aller gies Verified] Objective: * Vitals:?Ht: 64, Wt:138, BMI: 23.69, BP:114/60 weight is down 2 pounds since 08-18-24. * ???Past Orders: ???Lab:Comprehensive [place]. P arya Fast (Order Date - 08/11/2024) (Collection Date - 08/11/2024) ? Value Reference Range ?Sodium 139 135-145 - mmo l/L ?Bilirubin Total 0.1 0.0- 1.0 - mg/dL ?Aspartate Amino Transferase 17 5-37 - U/L ?Alanine Aminotransferase 14 0-40 - U/L ?Total Protein 6.8 6.5-8. 0 - g/dL ?Albumin Level 4.0 3.5-5. 0 - g/dL ?Alkaline Phosphatase 71 39-117 - U/L ?Potassium 4.1 3.3-5.1 - mmol/L ?Chloride 106 96-108 - mm ol/L ?Carbon Dioxide 27 22-29 - mmol/L ?Anion Gap 10 L 12-20 - ?Blood Urea Nitrogen 20 H 9-16 - mg/dL ?Creatinine 0.85 0.5-1.4 - mg/dL ?Estimated Glomerular Filt Rate > 60 - ?Glucose Fasting 138 H 60-9 9 - mg/dL ?Calcium 9.5 8.4-10.2 - m g/dL ???Lab:PSA,Total (Free>4and< 10) (Order Date - 08/11/2024) (Collection Date - 08/11/2024) ? Value Reference Range ?PSA,Total (Free>4and<10) 2.97 0.00-4.00 - ng/mL ???Lab:Complete Blood Count Auto Diff (Order Date - 08/11/2024) (Collection Date - 08/11/2024) ? Value Reference Range ?White Blood Count 8.9 4. 8-10.8 - X10*3/uL ?Red Blood Count 4.54 L 4.60 -5.80 - X10*6/uL ?Hemoglobin 13.6 L 14.0-18.0 - g/dl ?Hematocrit 41.0 L 42.0-52.0 - % ?Mean Corpuscular Volume 90.3 80.0-98.0 - fL ?Mean Corpuscular Hemoglobin 30.0 27.0-33.0 - pg ?Mean Corpuscular HGB Conc 33.2 31.0-36.0 - g/dl ?Red Cell Distribution Width 13.1 11.0-16.0 - % ?Platelet Count 394 160-4 00 - X10*3/uL ?Mean Platelet Volume 8.9 L 9.4-12.4 - fL ?Neutrophils Percent Auto 54.0 45-73 - % ?Imm Gran Pct Auto 0.3 0. 0-0.4 - % ?Lymphocytes Percent Auto 30.7 20-40 - % ?Monocytes Percent Auto 9.4 2-11 - % ?Eosinophils Percent Auto 4.2 H 0-4 - % ?Basophils Percent Auto 1.4 0-2 - % ?NRBC Pct Auto 0.0 0.0-0. 2 - /100WBC ?Neutrophils Absolute Auto 4.8 2.0-8.3 - x10*3/uL ?Imm Gran Abs Auto 0.03 0. 00-0.03 - X10*3/uL ?Lymphocytes Absolute Auto 2.7 1.2-4.9 - X10*3/uL ?Monocytes Absolute Auto 0.8 0.1-1.2 - X10*3/uL ?Eosinophils Absolute Auto 0.4 0.0-0.4 - X10*3/uL ?Basophils Absolute Auto 0.1 0.0-0.2 - X10*3/uL ?NRBC Abs Auto 0.000 0.0-0. 012 - X10*3/uL ???Lab:Hemoglobin A1c (Order Date - 08/11/2024) (Collection Date - 08/11/2024) ? Value Reference Range ?Hemoglobin A1c % 6.9 H <6. 0 - % ?Estimated Average Glucose 151 - mg/dL ???Lab:Microalbumin, Random (Order Date - 08/11/2024) (Collection Date - 08/11/2024) ? Value Reference Range ?Creatinine Urine 105.12 - m g/dL ?Microalbumin Urine 8.0 - mg/L ?Microalbum Creatinine Ratio Ur 7.6 <30 - ug/mg cr ???Lab:Lipid Panel (Order Da te - 08/11/2024) (Collection Date - 08/11/2024) ? Value Reference Range ?Triglycerides 50 <150 - mg/dL ?Cholesterol 157 <200 - m g/dL ?LDL Cholesterol Calculated 80 <100 - mg/dL ?HDL Cholesterol 67 >40 - mg/dL ???Lab:UA ClnCatch+Micro w/r flx Cult (Order Date - 08/11/2024) (Collection Date - 08/11/2024) ? Value Reference Range ?Color Urine Yellow - ?Appearance Urine Clear - ?PH 5.5 5.0-9.0 - ?Glucose Urine UA Negative Neg ative - mg/dL ?Urine Blood Negative Negative - ?Specific [place] - Urine 1.025 1.005-1.025 - ?Urine Protein Negative Neg-Tr sky - mg/dL ?Urine Ketones Negative Negati ve - mg/dL ?Nitrite Urine Negative Negati ve - ?Leukocyte Esterase Urine Negative Negative - ?RBC Urine 0-2 0-2 - /HPF ?WBC Urine 0-5 0-5 - /HPF ?Squamous Epithelial Cell Urine 0-2 0-2 - /HPF ?Bacteria Urine None Seen None Seen - ?Hyaline Casts Urine 0-2 0-2 - /LPF * Examination: ???General Examination: ?GENERAL APPEARANCE:?well developed, well nourished, in no acute distress.?HEAD:?normocephalic, atraumatic.?EYES:?pupils equal, round, reactive to light and accommodation, sclera non-icteric.?EARS:?normal.?ORAL CAVITY:?mucosa moist.?THROAT:?clear.?NECK/THYROID:?neck supple, full range of motion, no cervical lymphadenopathy, no bruits.?SKIN:?warm and dry, no suspicious lesions.?HEART:?regular rate and rhythm, S1, S2 normal, 2/6 DAVI at apex.?LUNGS:?clear to auscultation bilaterally.?ABDOMEN:?soft, nontender, nondistended, bowel sounds present, normal, no organomegaly , no masses palpable.?RECTAL EXAM:?normal tone, no external hemorrhoids, no masses palpable, prostate normal, stool guaiac negative.?MALE GENITOURINARY:? uncircumcised, no penile lesions or discharge, prostate normal, testes descended bilaterally.?EXTREMITIES:?no clubbing, cyanosis, or edema.?NEUROLOGIC:?nonfocal, motor strength normal upper and lower extremities, sensory exam intact.?FOOT EXAM:?.? Assessment: * Assessment: 1.?Annual physical exam - Z0 0.00 (Primary)?2.?Hip pain, right - M25.551?3.?Murmur, cardiac - R01.1?4.?Sciatica of right side - M54.31?5.?Type 2 diabetes mellitus without complication, without long-term current use of insulin - E11.9?6.?Hypercholesterolemia - E78.00? Plan: * Treatment: 2.?Hip pain, right? Notes: referral [place] [facility] [place]? Referral To:Tamir Seymour??Orthopedic Surgery ?Reason:Hip pain right 3.?Murmur, cardiac?Imaging: ECHO Notes: order faxed to [facility] Patient Reg?? 4.?Sciatica of right side? Notes: seems most likey that the hip pain is from back?? 5.?Type 2 diabetes mellitus without complication, without long-term current use of insulin? Notes: stable, will continue current regiment?? 6.?Hypercholesterolemia? Notes: stable, will continue current regiment?? * Procedure Codes:? * Preventive Medicine:? ??Diabetes Care Plan:?Patient Lifestyle Goals?Needs to maintain diet control.?Treatment Goals?A1C< 7.?Barriers ?No specific barriers, doing well.?Self-Managment Plan?Increase light exercise to 3 times a week for 30 minutes.? * Follow Up:?6 Months (Reason: dm) * * Sign off status: Completed true * Provider:?Tad Guerra MD Date:?1 Generated for Karissai geneva/Aditya/eTransmitting on:?02/23/2025 11:37 AM EDT History and Physical [...] patient have a vision impairmen t?: Yes ?If yes, what is the vision impairment?: Glasses [...] Provider Referred Provider Not es 08/31/2024 Tad Guerra, Tamir Hip pain r ight
[2025-02-23 12:03] LABS: Reflex LDLD? No
== END 2025-02-23 09:57 | disposition home or self-care (01) ==
LOC: HO.LNP 09:56
PROVIDERS: Visit Provider Internal Medicine
DX: E11.9 Type 2 diabetes mellitus without complications (principal); E78.00 Pure hypercholesterolemia, unspecified
CPT/HCPCS: 80061; 80076; 82947; 83036

== ENCOUNTER 2025-03-02 15:19 | Outpatient (REF) | payer MEDICARE, SELFPAY ==
[2025-03-02 15:37] LABS: Blood Urea Nitrogen 23 mg/dL (9-16); Estimated Glomerular Filt Rate > 60
--- OUTSIDE RECORDS SUMMARY | 2025-03-02 18:18 | XMS_ITS | Data Portability ---
Author Organization [facility], , [facility] Address [address] [place] [address] Assessment No assessment recorded. Plan of Treatment Reminders Order Date Submit Date Provider Last Modified By Organization Details Last Modified Time Details Appointments None recorded. Lab hepatic function panel, serum 2016 018 [facility], [address] [place] [address], [address], 8 10:19:33 PSA, serum or plasma 2016 017 [facility], [address] [place] [address], [address], 8 12:42:46 culture, throat 2016 017 [facility], [address] [place] [address], [address], 7 07:26:46 Referral None recorded. Procedures None recorded. Surgeries None recorded. Imaging None recorded. Medication Orders codeine 10 mg-guaife nesin 100 mg/5 mL oral liquid 2017 018 [email or web address] [id number], [address] [place], [address], 8 14:03:52 Zithromax Z-Dani 250 mg tablet 2017 018 INTERFACE [id number], [address] [place], [address], 8 14:03:01 erythromy bridget 5 mg/gram (0.5 %) eye ointment 2016 017 [email or web address] [id number], [address] [facility], [place], [address], 7 12:22:34 atorvasta tin 20 mg tablet 2016 017 INTERFACE [id number], [address] [facility], [place], [address], 7 13:50:20 Patient Targets Encounter Date Encounter Id Patient Goals Patient Target Last Modified By Organization Details Last Modified Time Will start lipid Rx for DM even though LDL<100, studies show this is beneficial Ilotycin for conjunctivitis Rapid strep neg, send TC Not available 10/10/2017 14:09:58 He will try codeine cough meds and Z pack FLu shot given Not available 10/13/2018 14:09:50 Patient Instructions Encounter Date Encounter Id Patient Instructions Last Modified By Organization Details Last Modified Time 04/19/2017 [id number] Continue taking Metformin 500mg with breakfast and dinner as prescribed. Regular exercise can help to lower blood sugar and promote weight loss. Your exercise goal is 30 minutes, 5 days per week. Increase your water intake to 7-8 glasses per day. Please continue to monitor your home blood sugar in the morning after you wake up (fasting) and two hours after dinner. Bring your blood sugar meter to every appointment so we can discuss the numbers together. Diabetics are at an increased risk of wounds that do not heal, so please inspect your feet daily and return if any cuts are not healing properly. brittany Not available 04/19/2017 13:44:40 10/21/2017 [id number] Well Visit 50 to 65: Care Instructions fortino Not available 10/21/2017 16:43:38 - continue with regular exercise as you are brittany Not available 10/21/2017 16:08:46 Prostate Cancer Screening using PSA was discussed. The U.S. Preventive Services Task Force advises not to make a PSA test a part of the standard exam for men ages 55-69. Instead they recommend the uncertainties about the test be discussed and ordered only if a patient still wants it. Over their lifetimes as many as 50% or more of men will develop prostate cancer but only 2% of men will of prostate cancer. For men who chose to be screened for prostate cancer if 1000 men are screened with a psa test over a 15 year period there might be 1-2 deaths prevented however 235 men will have a biopsy with risk of infection, bleeding and Pain, 100 men will have their prostate removed by surgery or radiation treatments and 60-70 of those will suffer incontinence or impotence. There is also the risk of anesthesia or radiation complications. For men over 70 prostate cancer screening offered no benefit and risked pain, worry, expense and possibly shorter life expectancy. [email or web address] Not available 10/21/2017 15:50:51 Reason for Referral None Reported. Results Created Date Observation Date Name Description Value Unit Range Abnormal Flag Note LastModifiedBy Organization Detail LastModifiedTime 04/18/2004/18/2017 lipid panel , serum cholesterol 201 mg/dL <200 mg/dl Ayla able 200-2 39 mg/dl Borde rline High >240 mg/dl High Not Available [address], [address], 04/18/2017 09:37:41 04/18/2004/18/2017 lipid panel , serum triglyceride s 48 mg/dL <150 mg/dL Mikaela l 150-1 99 mg/dL Borde rline High 200-4 99 mg/dL High >500 mg/dL Very High Not Available [address], [address], 04/18/2017 09:37:41 04/18/2004/18/2017 lipid panel , serum direct HDL 96 mg/dL Not Available [address], [address], 04/18/2017 09:37:41 04/18/2004/18/2017 LDL, belkis rodriguez , serum (OBS) LDL - calculated 95.4 RISK CATEG ORY LDL GOAL _ CHD or CHD Risk Equiv alent s <100 mg/dl (10-y ear risk >20%) 2+ Risk Facto rs <130 mg/dl (10-y ear risk <= 20%) 0-1 Risk Facto r? <160 mg/dl ? Almos t all peopl e with 0-1 risk facto r have a 10 year risk <10%, thus 10 year risk asses ment in peopl e with 0-1 risk facto r is not arvandana padilla. Not Available [address], [address], 04/18/2017 09:37:41 04/18/20 17 04/18/2017 HbA1c (hemo globi n A1c), blood hemoglobin A1C 6.3 % 4.8-6. 0 high Goal: <7% in Patie nts with Diabe thelma Not Available [address], [address], 04/18/2017 10:13:43 04/18/20 17 04/18/2017 HbA1c (hemo globi n A1c), blood estimated average glucose 134.1 mg/dL Not Available [address], [address], 04/18/2017 10:13:43 04/18/20 17 04/19/2017 PSA, serum or plasm a PSA 1.89 NG/mL 0.00-4 .00 Not Available [address], [address], 04/19/2017 09:30:30 10/10/20 17 10/10/2017 pocst pa strep A POC Negati ve Not Available [address], [address], 10/10/2017 14:08:10 10/10/20 17 10/13/2017 cultu re throshayla t culture, throat CULTU RE, THROA T MICRO NUMBE R: [id number] TEST STATU S: FINAL SPECI MEN SOURC E: THROA T SPECI MEN QUALI TY: ADEQU ATE RESUL T: No oroph aryng eal patho gens recov ered. Not Available [facility] [address], [place], [address], 10/13/2017 07:26:45 10/16/20 17 10/16/2017 BMP, serum or plasm a glucose 126 mg/dL 70-100 high Not Available [address], [address], 10/16/2017 09:42:12 10/16/20 17 10/16/2017 BMP, serum or plasm a BUN 20 mg/dL 7-18 high Not Available [address], [address], 10/16/2017 09:42:12 10/16/20 17 10/16/2017 BMP, serum or plasm a creatinine 1.1 mg/dL 0.8-1. 3 Not Available [address], [address], 10/16/2017 09:42:12 10/16/20 17 10/16/2017 BMP, serum or plasm a B/C 18.2 ratio Not Available [address], [address], 10/16/2017 09:42:12 10/16/20 17 10/16/2017 BMP, serum or plasm a GFR -non 71.9 mL/mi n Recom gee d GFR by the Natio nal Kidne y Found ation >60 mL/mi n/1.7 3m2 - Mikaela l <60 mL/mi n/1.7 3m2 - Chron ic Kidne y Disea se <15 mL/mi n/1.7 3m2 - Kidne y Failu re Not Available [address], [address], 10/16/2017 09:42:12 10/16/20 17 10/16/2017 BMP, serum or plasm a GFR - if 86.9 mL/mi n For Afric an Ameri can patie nts: Resul ts Multi plied by 1.21 Not Available [address], [address], 10/16/2017 09:42:12 10/16/20 17 10/16/2017 BMP, serum or plasm a sodium 140 mmol/ L 136-14 5 Not Available [address], [address], 10/16/2017 09:42:12 10/16/20 17 10/16/2017 BMP, serum or plasm a potassium 4.2 mmol/ L 3.5-5. 1 Not Available [address], [address], 10/16/2017 09:42:12 10/16/20 17 10/16/2017 BMP, serum or plasm a chloride 103 mmol/ L 96-107 Not Available [address], [address], 10/16/2017 09:42:12 10/16/20 17 10/16/2017 BMP, serum or plasm a anion gap 10.3 5.0-15 .0 Not Available [address], [address], 10/16/2017 09:42:12 10/16/20 17 10/16/2017 BMP, serum or plasm a CO2 27 mmol/ L 21-32 Not Available [address], [address], 10/16/2017 09:42:12 10/16/20 17 10/16/2017 BMP, serum or plasm a calcium 9.1 mg/dL 8.5-10 .3 Not Available [address], [address], 10/16/2017 09:42:12 10/16/20 17 10/16/2017 lipid panel , serum cholesterol 151 mg/dL <200 mg/dl Ayla able 200-2 39 mg/dl Borde rline High >240 mg/dl High Not Available [address], [address], 10/16/2017 09:42:13 10/16/20 17 10/16/2017 lipid panel , serum triglyceride s 55 mg/dL <150 mg/dL Mikaela l 150-1 99 mg/dL Borde rline High 200-4 99 mg/dL High >500 mg/dL Very High Not Available [address], [address], 10/16/2017 09:42:13 10/16/20 17 10/16/2017 lipid panel , serum direct HDL 88 mg/dL Not Available [address], [address], 10/16/2017 09:42:13 10/16/20 17 10/16/2017 LDL, calcu lated , serum (OBS) LDL - calculated 52.0 RISK CATEG ORY LDL GOAL _ CHD or CHD Risk Equiv alent s <100 mg/dl (10-y ear risk >20%) 2+ Risk Facto rs <130 mg/dl (10-y ear risk <= 20%) 0-1 Risk Facto r? <160 mg/dl ? Almos t all peopl e with 0-1 risk facto r have a 10 year risk <10%, thus 10 year risk asses ment in peopl e with 0-1 risk facto r is not neces randy. Not Available [address], [address], 10/16/2017 09:42:14 10/16/20 17 10/16/2017 HbA1c (hemo globi n A1c), blood hemoglobin A1C 6.5 % 4.8-6. 0 high Goal: <7% in Patie nts with Diabe thelma Not Available [address], [address], 10/16/2017 09:45:42 10/16/20 17 10/16/2017 HbA1c (hemo globi n A1c), blood estimated average glucose 139.9 mg/dL Not Available [address], [address], 10/16/2017 09:45:42 10/16/20 17 10/16/2017 micro album in, urine microalbumin 6.1 mg/L 1.3-20 .0 Not Available [address], [address], 10/16/2017 10:04:04 10/16/20 17 10/16/2017 micro album in, urine creatinine urine 145.2 mg/dL 30.0-1 25.0 high Not Available [address], [address], 10/16/2017 10:04:04 10/16/20 17 10/16/2017 micro album in, urine microalb/cre at ratio 4.2 mg/g_ creat 0.0-29 .0 Not Available [address], [address], 10/16/2017 10:04:04 04/14/20 18 04/14/2018 HbA1c (hemo globi n A1c), blood hemoglobin A1C 6.5 % 4.8-6. 0 high Goal: <7% in Patie nts with Diabe thelma Not Available [address], [address], 04/14/2018 10:10:56 04/14/20 18 04/14/2018 HbA1c (hemo globi n A1c), blood estimated average glucose 139.9 mg/dL Not Available [address], [address], 04/14/2018 10:10:56 04/14/20 18 04/14/2018 BMP, serum or plasm a glucose 120 mg/dL 70-100 high Not Available [address], [address], 04/14/2018 10:19:32 04/14/20 18 04/14/2018 BMP, serum or plasm a BUN 12 mg/dL 7-18 Not Available [address], [address], 04/14/2018 10:19:32 04/14/20 18 04/14/2018 BMP, serum or plasm a creatinine 1.0 mg/dL 0.8-1. 3 Not Available [address], [address], 04/14/2018 10:19:32 04/14/20 18 04/14/2018 BMP, serum or plasm a B/C 12.0 ratio Not Available [address], [address], 04/14/2018 10:19:32 04/14/20 18 04/14/2018 BMP, serum or plasm a GFR -non 80.0 mL/mi n Recom gee d GFR by the Natio nal Kidne y Found ation >60 mL/mi n/1.7 3m2 - Mikaela l <60 mL/mi n/1.7 3m2 - Chron ic Kidne y Disea se <15 mL/mi n/1.7 3m2 - Kidne y Failu re Not Available [address], [address], 04/14/2018 10:19:32 04/14/20 18 04/14/2018 BMP, serum or plasm a GFR - if 96.7 mL/mi n For Afric an Ameri can patie nts: Resul ts Multi plied by 1.21 Not Available [address], [address], 04/14/2018 10:19:32 04/14/20 18 04/14/2018 BMP, serum or plasm a sodium 140 mmol/ L 136-14 5 Not Available [address], [address], 04/14/2018 10:19:32 04/14/20 18 04/14/2018 BMP, serum or plasm a potassium 4.6 mmol/ L 3.5-5. 1 Not Available [address], [address], 04/14/2018 10:19:32 04/14/20 18 04/14/2018 BMP, serum or plasm a chloride 103 mmol/ L 96-107 Not Available [address], [address], 04/14/2018 10:19:32 04/14/20 18 04/14/2018 BMP, serum or plasm a anion gap 8.2 5.0-15 .0 Not Available [address], [address], 04/14/2018 10:19:32 04/14/20 18 04/14/2018 BMP, serum or plasm a CO2 29 mmol/ L Not Available [address], [address], 04/14/2018 10:19:32 04/14/20 18 04/14/2018 BMP, serum or plasm a calcium 9.2 mg/dL 8.5-10 .3 Not Available [address], [address], 04/14/2018 10:19:32 04/14/20 18 04/14/2018 hepat ic funct ion panel , serum total protein 6.6 g/dL 6.4-8. 2 Not Available [address], [address], 04/14/2018 10:19:33 04/14/20 18 04/14/2018 hepat ic funct ion panel , serum albumin 3.6 g/dL 3.4-5. 0 Not Available [address], [address], 04/14/2018 10:19:33 04/14/20 18 04/14/2018 hepat ic funct ion panel , serum globulin 3.0 g/dL Not Available [address], [address], 04/14/2018 10:19:33 04/14/20 18 04/14/2018 hepat ic funct ion panel , serum A/G 1.2 ratio 0.8-2. 0 Not Available [address], [address], 04/14/2018 10:19:33 04/14/20 18 04/14/2018 hepat ic funct ion panel , serum total bilirubin 0.50 mg/dL 0.00-1 .00 Not Available [address], [address], 04/14/2018 10:19:33 04/14/20 18 04/14/2018 hepat ic funct ion panel , serum direct bilirubin 0.10 mg/dL 0.00-0 .30 Not Available [address], [address], 04/14/2018 10:19:33 04/14/20 18 04/14/2018 hepat ic funct ion panel , serum AST 22 U/L 15-37 Not Available [address], [address], 04/14/2018 10:19:33 04/14/20 18 04/14/2018 hepat ic funct ion panel , serum ALT 28 U/L 30-65 low Not Available [address], [address], 04/14/2018 10:19:33 04/14/20 18 04/14/2018 hepat ic funct ion panel , serum alk. phos. 61 U/L 50-136 Not Available [address], [address], 04/14/2018 10:19:33 04/14/20 18 04/14/2018 lipid panel , serum cholesterol 176 mg/dL <200 mg/dl Ayla able 200-2 39 mg/dl Borde rline High >240 mg/dl High Not Available [address], [address], 04/14/2018 10:19:34 04/14/20 18 04/14/2018 lipid panel , serum triglyceride s 45 mg/dL <150 mg/dL Mikaela l 150-1 99 mg/dL Borde rline High 200-4 99 mg/dL High >500 mg/dL Very High Not Available [address], [address], 04/14/2018 10:19:34 04/14/20 18 04/14/2018 lipid panel , serum direct HDL 94 mg/dL <40 mg/dl - Major Risk for CHD >60 mg/dl - Negat zenaida Risk for CHD Not Available [address], [address], 04/14/2018 10:19:34 04/14/20 18 04/14/2018 LDL, calcu lated , serum (OBS) LDL - calculated 73.0 RISK CATEG ORY LDL GOAL _ CHD or CHD Risk Equiv alent s <100 mg/dl (10-y ear risk >20%) 2+ Risk Facto rs <130 mg/dl (10-y ear risk <= 20%) 0-1 Risk Facto r? <160 mg/dl ? Almos t all peopl e with 0-1 risk facto r have a 10 year risk <10%, thus 10 year risk asses ment in peopl e with 0-1 risk facto r is not neces randy. Not Available [address], [address], 04/14/2018 10:19:35 04/14/20 18 04/14/2018 PSA, serum or plasm a PSA 2.00 NG/mL 0.00-4 .00 Not Available [address], [address], 04/14/2018 12:42:46 10/13/20 18 10/13/2018 pocha 1c POC HA1C 6.2 4.2 - 6.5 Not Available [address], [address], 10/14/2018 09:18:29 Result Notes None recorded. Problems Name Problem SNOMED Code Status Onset Date Resolution Date Notes Provider Name and Address Organization Details Recorded Time Well controlle d type 2 diabetes mellitus 256805125 [facility] 6 11:54:55 Hyperlipi julietia [id number] Completed 201610/21/2017 started statin 10/11 Lexy Alvares PA-C [address] [place] [address], [phone], [facility] 7 16:05:58 Problem Notes None recorded. Procedures Surgical History Date Name Laterality Status Provider Name and Address Organization Details Recorded Time 8 POC HA1C completed Chana skinner [facility] 10/13/2018 14:09:04 7 POC Strep Testing completed Chana skinner [facility] 10/10/2017 14:02:27 5 Moshe - Colonoscopy completed Ba Meas MD [address] [place] [address], [phone], [facility] 06/16/2015 10:07:02 Imaging Results None recorded. Procedure Notes None recorded. Medical Equipment None Reported. Allergies No known drug allergies Medications Name Sig Start Date Stop Date Status Note LastModified by Organization Details LastModified Time metformin 500 mg tablet TAKE 1 TABLET BY MOUTH TWICE A DAY active Not Available Not Available No t Available atorvastati n 20 mg tablet TAKE 1 TABLET(S) EVERY DAY BY ORAL ROUTE. active Not Available Not Available No t Available Zithromax Z-Dani 250 mg tablet TAKE 2 TABLETS (500 MG) BY ORAL ROUTE ONCE DAILY FOR 1 DAY THEN 1 TABLET (250 MG) BY ORAL ROUTE ONCE DAILY FOR 4 DAYS 2017 active Not Available Not Available Not Avai lable prochlorper azine maleate 10 mg tablet 04/19 completed Not Available Not Available Not Available erythromyci n 5 mg/gram (0.5 %) eye ointment APPLY 1 CM RIBBON INTO THE LOWER CONJUNCTI DIOR SAC(S) IN THE AFFECTED EYE(S) BY OPHTHALMI C ROUTE 3 TIMES PER DAY 10/21 completed Not Available Not Available Not Available codeine 10 mg-guaifene sin 100 mg/5 mL oral liquid Take 10 mL every 4 hours by oral route. 2017 active Not Available Not Available Not Avai lable peg 3350-electr olytes 236 gram-22.74 gram-6.74 gram-5.86 gram solution 04/19 completed Not Available Not Available Not Available Vitals Date Recorded Body height Body weight Body mass index (BMI) Heart rate Systolic blood pressure Diastolic blood pressure Provider Name and Address Organization Details Last Updated DateTime 165.74 cm 30779.9 6 g 24.8 kg/m2 78 /min 134 mm[Hg] 70 mm[Hg] Kaitlyn Benítez [facility] 7 13:34:28 Date Recorded Body height Body mass index (BMI) Body weight Heart rate Body temperature Systolic blood pressure Diastolic blood pressure Provider Name and Address Organization Details Last Updated DateTime 7 165.74 cm 24.3 kg/m2 85707.0 8 g 76 /min 97.8 [degF] 130 mm[Hg] 70 mm[Hg] Oriana Alberto [facility] 7 13:27:31 Date Recorded Body height Body mass index (BMI) Body weight Heart rate Systolic blood pressure Diastolic blood pressure Systolic blood pressure Diastolic blood pressure Provider Name and Address Organization Details Last Updated DateTime 7 165.74 cm 24 kg/m2 39369.5 9 g 76 /min 140 mm[Hg] 84 mm[Hg] 142 mm[Hg] 82 mm[Hg] Kaitlyn Harris [facility] 7 15:50:23 Date Recorded Systolic blood pressure Diastolic blood pressure Provider Name and Address Organization Details Last Updated DateTime 10/21/2017 138 mm[Hg] 78 mm[Hg] Lexy Alvares PA-C [address] [place] [address], [phone], [facility] 10/21/2017 16:09:07 Date Recorded Body height Body mass index (BMI) Body weight Heart rate Systolic blood pressure Diastolic blood pressure Provider Name and Address Organization Details Last Updated DateTime 8 165.74 cm 25 kg/m2 16294.8 5 g 74 /min 126 mm[Hg] 80 mm[Hg] Kaitlyn Harris [facility] 8 13:31:50 Date Recorded Body height Body mass index (BMI) Body weight Heart rate Body temperature Systolic blood pressure Diastolic blood pressure Provider Name and Address Organization Details Last Updated DateTime 8 165.74 cm 25.3 kg/m2 28575.6 3 g 84 /min 98.4 [degF] 122 mm[Hg] 80 mm[Hg] Chana Rivero user, [facility] 8 13:40:41 Social History Question Answer Notes LastModified by Organizat ion Details LastModified Time Tobacco Smoking Status Former Smoker quit 30 years ago (), smoked for ~15 years MAJO Rice, [facility] 05/02/2015 08:56:42 What Is Your Level Of Alcohol Consumption? Occasional 1 Glass Of Wine With Special Dinners [email or web address] Information not available 05/02/2015 Do You Wear A Helmet When Biking? No N/a Information not available 05/02/2015 What Is Your Level Of Caffeine Consumption? Occasional 1 Cup Of Coffee A Day [email or web address] Information not available 05/02/2015 How Much Tobacco Do You Chew? None [email or web address] Information not available 05/02/2015 What Type Of Diet Are You Following? REGULAR [email or web address] Information not available 05/02/2015 Which Illicit Or Recreational Drugs Have You Used? 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 0 [email or web address] Information not available 05/02/2015 Are There Any Guns Present In Your Home? No Information not available 05/02/2015 Live Alone Or With Others? With Others [email or web address] Information not available 05/02/2015 Patient Has Health Care Proxy Signed And In Chart No Will Be Pt's [email or web address] Information not available 05/02/2015 Marital Status [email or web address] Informatio n not available 05/02/2015 Mosquito Repellent Used Routinely Yes [email or web address] Information not available 05/02/2015 What Was The Date Of Your Most Recent Tobacco Screening? 10/13/2018 Information not available 06/17/2019 How Many Children Do You Have? 4 Information not available 05/02/2015 Seat Belts Used Routinely Yes Information not available 05/02/2015 Are You Sexually Active? Yes Information not available 05/02/2015 Smoke Alarm In Home Yes [email or web address] Information not available 05/02/2015 General Stress Level Low [email or web address] Information not available 05/02/2015 Do You Use Sunscreen Routinely? Yes Information not available 05/02/2015 Sex: Unknown Functional Status None recorded. Mental Status None recorded. Family History Relationship Description Onset Age of this Age Resolved Age Notes LastModified by Organization Details LastModified Time Mother Hyperlipidem ia [email or web address] Not available 2014 08:53:04 Father Type 2 diabetes mellitus [email or web address] Not available 2014 08:53:04 Father Malignant tumor of prostate 68 [email or web address] Not available 2014 08:53:04 Notes:Father side: strong DM , poorly controlled Medical History Condition Response Diabetes Type II Y Colon Polyps Y Immunizations Vaccine Type Date Status Note Provider Nam e and Address Organization Details Recorded Time Influenza, split virus, quadrivalent, PF 6 completed Not Available [facility] 12/12/2019 02:33:00 pneumococcal polysaccharide PPV23 6 completed Not Available [facility] 12/12/2019 02:33:00 Tdap 7 completed Not Available [facility] 12/12/2019 02:33:35 Influenza, split virus, quadrivalent, PF 7 completed Not Available [facility] 12/12/2019 02:22:08 influenza, unspecified formulation 4 completed Shell Ling M.D. [address] [place] [address], [phone], [facility] 06/03/2015 08:43:00 Influenza, split virus, quadrivalent, PF 8 completed Not Available [facility] 12/12/2019 02:23:29 Past Encounters Encounter ID Performer Location Encounter Start Date Encounter Closed Date Diagnosis/Indication Diagnosis SNOMED-CT Code Diagnosis ICD10 Code Diagnosis Note [id number] Shell Ling M.D. , [facility], [address] [place] [address] 05/02/2015 08:42:19 05/02/2015 10:17:11 Well controlled type 2 diabetes mellitus 291713965 doesn't check at home glc 101 pt not sure of his labs neg dm foot exam today (wnl) due for vision (refer next visit) will calculate [place] risk next visit to determine need for asa continue excellent TLC fasting labs in next couple of days Family his tory of malignant neoplasm of prostate 110118080 we reviewed psa screening in detail and given his strong FH, age and ethnicity, will plan for PSA given higher than avg risk Screening for malignant neoplasm of colon 875422665 Active or passive immunization [id number] Tdap prescripti on needed fro Medicare and [employer] [id number] , [facility], [address] [place] [address] 06/03/2015 08:09:40 06/03/2015 08:53:37 Well controlled type 2 diabetes mellitus 868571518 reviewed goals of care ideally ldl <100 but pt declines statin at this point only due for eye exam at this point see q6mo for well controlled dm [id number] [facility] [address] [place] [address] 06/16/2015 08:29:35 06/16/2015 14:08:02 [id number] Lexy Alvares PA-C , [facility], OFFICE [address] [place] [phone] 10/16/2016 09:57:09 10/16/2016 10:42:57 Adult health examination 703023708 Z00.00 see Risk Assessment and Lifestyle Change Counseling section above Counseling 525100761 Z71 .9 Type 2 yoly betes mellitus 67967830 E11.9 - Well controlled Screening for malignant neoplasm of prostate 178023026 Z12.5 Active or passive immunization 154914618 Z23 [id number] LENNY Frank, [facility], [address] [place] [address] 04/19/2017 13:16:30 04/19/2017 14:47:31 Well controlled type 2 diabetes mellitus 296440097 E11.9 - Doing excellent with diabetes and general health- Follow up in six months Active or passive immunization 708654027 Z23 [id number] MD MAGDALENA Bonilla, [facility], OFFICE [address] [place] [phone] 10/10/2017 13:12:25 10/10/2017 14:14:33 Acute upper respiratory infection [id number] J06.9 Educated patient that URI is a viral illness of the upper airways. It is not bacterial and does not benefit from antibiotic s. Average duration of URI is 7-10 days but in a recent trial, treatment at 7-10 days of illness with antibiotic s, intranasal steroids, or placebo did not alter natural history at 3 weeks. Recommende d symptomati c treatments including NSAIDS, semi-uprig ht sleep position, antihistam ishmael at HS, limited course of nasal sympathomi metics and/or cough syrups, and nasal saline rinses with soft squeeze bottle or Neti pot. Return for fevers > 101 for 3 days, worsening sinus pain, or failure to resolve in 2-4 weeks. Conjunctivitis [id number] H 10.9 Hyperlipidemia [id number] E78.5 Active or passive immunization [id number] Z23 [id number] LENNY Frank, [facility], OFFICE [address] [place] [phone] 10/21/2017 15:33:41 10/21/2017 16:10:02 Adult health examination [id number] Z00.00 see Risk Assessment and Lifestyle Change Counseling section above Counseling [id number] Z71 .9 Well contr olled type 2 diabetes mellitus [id number] E11.9 - diabetes well controlled and A1c at goal of less than 7%- continue with current medication s- follow up in six months- has eye appt scheduled in Nov Screening for malignant neoplasm of prostate [id number] Z12.5 - to check in March with next labs, annual screening due to family history Active or passive immunization [id number] Z23 [id number] LENNY Frank, [facility], OFFICE [address] [place] [phone] 04/18/2018 13:11:48 04/18/2018 13:39:01 Well controlled type 2 diabetes mellitus [id number] E11.9 - diabetes well controlled and A1c at goal of less than 7%- continue with current medication s- follow up in six months- doing great!- continue with atorvastat in for primary prevention [id number] Ba Green MD , [facility], OFFICE [address] [place] [phone] 10/13/2018 13:22:17 10/13/2018 15:32:29 Acute upper respiratory infection [id number] J06.9 Educated patient that URI is a viral illness of the upper airways. It is not bacterial and does not benefit from antibiotic s. Average duration of URI is 7-10 days but in a recent trial, treatment at 7-10 days of illness with antibiotic s, intranasal steroids, or placebo did not alter natural history at 3 weeks. Recommende d symptomati c treatments including NSAIDS, semi-uprig ht sleep position, antihistam ishmael at HS, limited course of nasal sympathomi metics and/or cough syrups, and nasal saline rinses with soft squeeze bottle or Neti pot. Return for fevers > 101 for 3 days, worsening sinus pain, or failure to resolve in 2-4 weeks. Active or passive immunization [id number] Z23 Cough [id number] R05 Well contr olled type 2 diabetes mellitus [id number] E11.9 A1c done today. Health Concerns Section Related Observation LastModified by Organization Detai ls LastModified Time None Recorded Concern Status LastModified by Organization Details LastModified Time None Recorded Advance Directives Directive None Recorded Payers Encounter Date Sequence Insurance Name Policy Number Policy Constantino Covered Member ID Constantino Member ID Guarantor Name 04/19/2017 1 [facility] - [employer] (MEDICAID HMO) Leo Dejesus [id number] [facility] 10/10/2017 1 [facility] - [employer] (MEDICAID HMO) Leo Dejesus [id number] [facility] 10/21/2017 1 [facility] - [employer] (MEDICAID HMO) Leo Dejesus [id number] [facility] 04/18/2018 1 [facility] [place] (HMO) [id number] Leo Dejesus 10/13/2018 1 [facility] - [employer] [place] (HMO) Leo Dejesus [id number] Leo Dejesus Notes Date Note Type Note Provider Name and Address Organization Details Recorded Time 04/19/2017 text/html [facility] DiabetesRepo rted bypatient.Duration:chr onic Control:usually well controlled; treated with diet and oral medications; Hemoglobin A1C has been less than 7; Hemoglobin A1C goal is less than 7; LDL usually runs 120-140, goal is less than <100 Compliance:compliant with medications; Patient understands medications are to reduce blood sugar and control diabetes; compliant with follow-up visits; compliant with diet; Compliant with exercise (2 hours per day); compliant with home glucose monitoring Barriers to CareNo identified barriers to care Self Care:not monitoring home glucose Context:seeing eye doctor regularly; checking feet regularly;not taking aspirin daily Associated Symptoms:no weight gain; no weight loss; no dizziness; no sweats; no headaches; no confusion; no increased thirst; no increased appetite; no increased urination; no blurred vision; no numbness of feet; no calluses on feet; no coronary artery disease; no kidney disease; no peripheral vascular disease; no retinopathy; no neuropathy Ability to Manage Self CareOn how confident the patient feels in ability to self manage condition the patient selects 10 with 10 being very confident and 1 being very low confidence; Patient feels very confident in ability to self manage condition ASCVD 10 year risk 14% today. Does not want statin - healthy weight, well controlled diabetes, exercising daily, normal cholesterol. Does not want to start yet. Lexy Alvares PA-C [address] [place] [address], [phone], [facility] 04/19/2017 13:53:09 10/10/2017 text/html [facility] URI Flu like SymptomsReported bypatient.Duration:dur ation: less than 1 week; started 7 days ago Associated Symptoms:No fever/chills; No sweats; No wheezing; No shortness of breath; No ear pressure or fullness; No earache; No difficulty swallowing; No swollen glands; No chest pain with deep breath; No abdominal pain; No nausea; No vomiting; No diarrhea; No rash;Fatigue and malaise;Headache;Signi ficant muscle aches;congestion;purul ent nasal discharge;frontal sinus pressure;Cough productive of yellow-green, thick sputum;Sore throat Modifying factors:Some relief with otc medication decongestants E[facility] DC [facility] since [facility] , [facility] Ba Green MD [address] [place] [address], [phone], [facility] 10/10/2017 14:10:48 10/21/2017 text/html Physical Exam/MaleReported bypatient.PHAPatient is here for a Wellness Visit. He describes his health status as good. Patient's health is the same as last year.Risk Assessment and Lifestyle Change Counseling 50-64Reported bypatient.Coronary Artery Disease Risk Assessment:No Family history of coronary artery disease;Personal history of diabetes; No history of peripheral vascular disease, AAA, or carotid disease; No personal history of coronary artery disease; Patient has higher than average risk for coronary artery disease; [place] 10 year risk 5-10% Breast Cancer Risk Assessment:No family history of breast cancer; No history of breast cancer or dcis Colon Cancer Risk Assessment:No family history of colon polyps or cancer;History of adenomatous colon polyp(2014, repeat colo in 2019) Lung Cancer Risk Assessment:Never smoked; No asbestos exposure Fracture Risk Assessment:No unexplained fracture Cognitive/Behavioral Risk Assessment:No personal history of mental illness; No family history of mental illness Safety Risk Assessment:No evidence of abuse/neglect Diet:Counseled about appropriate portion size; Counseled about eating a diet low in trans and saturated fats and high in fiber, fruits and vegetables; Counseled about appropriate calcium intake and good dietary sources of calcium.; Counseled about the importance of maintaining a positive calcium balance and taking 1000 iu Vitamin D daily. Exercise counseling:Discussed the importance of daily physical activity; Discussed the importance of weight bearing exercise Safety:Counseled about protecting skin from the sun and lowering the risk of skin cancer; Counseled about avoiding excessive and unsafe alcohol intake Family Planning:Not using control; Does not desire pregnancyVMG DiabetesReported bypatient.Duration:chr onic Control:usually well controlled; treated with diet and oral medications; Hemoglobin A1C has been less than 7; Hemoglobin A1C goal is less than 7; LDL usually runs 120-140, goal is less than <100 Compliance:compliant with medications; Patient understands medications are to reduce blood sugar and control diabetes; compliant with follow-up visits; compliant with diet; Compliant with exercise (2 hours per day); compliant with home glucose monitoring Barriers to CareNo identified barriers to care Self Care:not monitoring home glucose Context:seeing eye doctor regularly; checking feet regularly;not taking aspirin daily(not needed, ASCVD 13%) Associated Symptoms:no weight gain; no weight loss; no dizziness; no sweats; no headaches; no confusion; no increased thirst; no increased appetite; no increased urination; no blurred vision; no numbness of feet; no calluses on feet; no coronary artery disease; no kidney disease; no peripheral vascular disease; no retinopathy; no neuropathy Ability to Manage Self CareOn how confident the patient feels in ability to self manage condition the patient selects 10 with 10 being very confident and 1 being very low confidence; Patient feels very confident in ability to self manage conditionNotes:Started statin this month, ASCVD 13%. No side effects. Lexy Alvares PA-C [address] [place] [address], [phone], [facility] 10/21/2017 16:16:04 04/18/2018 text/html [facility] DiabetesRepo rted bypatient.Duration:chr onic Control:usually well controlled; treated with diet and oral medications; Hemoglobin A1C has been less than 7; Hemoglobin A1C goal is less than 7; LDL usually runs 120-140, goal is less than <100 Compliance:compliant with medications; Patient understands medications are to reduce blood sugar and control diabetes; compliant with follow-up visits; compliant with diet; Compliant with exercise (2 hours per day); compliant with home glucose monitoring Barriers to CareNo identified barriers to care Self Care:not monitoring home glucose Context:seeing eye doctor regularly; checking feet regularly;not taking aspirin daily(not needed, ASCVD 13%) Associated Symptoms:no weight gain; no weight loss; no dizziness; no sweats; no headaches; no confusion; no increased thirst; no increased appetite; no increased urination; no blurred vision; no numbness of feet; no calluses on feet; no coronary artery disease; no kidney disease; no peripheral vascular disease; no retinopathy; no neuropathy Ability to Manage Self CareOn how confident the patient feels in ability to self manage condition the patient selects 10 with 10 being very confident and 1 being very low confidence; Patient feels very confident in ability to self manage conditionNotes:Doing excellent with medications. No side effects. Exercising daily. No pain in feet. Lexy Alvares PA-C [address] [place] [address], [phone], [facility] 04/18/2018 13:38:53 10/13/2018 text/html [facility] URI Flu like SymptomsReported bypatient.Duration:sym ptoms lasting over 2 weeks Associated Symptoms:Good oral intake; No sweats; No purulent nasal discharge; No wheezing; No shortness of breath; No ear pressure or fullness; No earache; No difficulty swallowing; No swollen glands; No nausea; No vomiting; No diarrhea; No rash;fever/chills;Fati nasim and malaise;Headache;Signi ficant muscle aches;congestion;Left maxillary sinus pressure;Right maxillary sinus pressure;frontal sinus pressure;Cough productive of yellow-green, thick sputum;Sore throat;Chest pain with deep breath;Abdominal pain Context:No foreign travel; Non-smoker; Sick contacts at home Modifying factors:No relief with OTC medication Ba Green MD [address] [place], [phone], [facility] 10/14/2018 06:51:41
--- OUTSIDE RECORDS SUMMARY | 2025-03-02 18:18 | XMS_ITS | Patient Health Record ---
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 Panel Fa st Reviewed date:08/11/2024 12:41:10 PM Interpretation: Performing Lab:[facility], [address] [place] [phone] Notes/Report: Sodium 139 135-145 mmol/L Potassium 4.1 3.3-5.1 mmol/L Chloride 106 96-108 mmol/L Carbon Dioxide 27 22-29 mmol/L Anion Gap 10 12-20 Blood Urea Nitrogen 20 9-16 mg/dL Creatinine 0.85 0.5-1.4 mg/dL Estimated Glomerular Filt Rate > 60 NOTE: For -[place] individuals, multiply the result by 1.210. Chronic [...] Panel Reviewed date:08/11/2024 12:40:10 PM Interpretation: Performing Lab:[facility], [address] [place] [phone] Notes/Report: Triglycerides 50 <150 mg/dL Desirable Triglyceride: [...] (Free>4and<10) Reviewed date:08/11/2024 12:35:00 PM Interpretation: Performing Lab:[facility], [address] [place] [phone] Notes/Report: PSA,Total (Free>4and<10) 2.97 0.00-4.00 ng/mL A [...] Random Reviewed date:08/11/2024 12:39:53 PM Interpretation: Performing Lab:[facility], [address] [place] [phone] Notes/Report: Creatinine Urine 105.12 Microalbumin Urine 8.0 Microalbum/Creatinine Ratio Ur 7.6 <30 ug/mg cr Albumin/Creatinine Ratio Reference Ranges: Normal: < 30 ug/mg creatinine Microalbuminuria: 30 - 300 ug/mg creatinine Clinical Albuminuria: > 300 ug/mg creatinine Hemoglobin A1c Reviewed date:08/11/2024 12:38:19 PM Interpretation: Performing Lab:[facility], [address] [place] [phone] Notes/Report: Hemoglobin A1c % 6.9 <6.0 % [...] average glucose, using the formula of the Y3L-Dbilqwn Average Glucose study (ADAG), Diabetes Care, Vol.31,#8, Jun. 2007 UA ClnCatch+Micro w/rflx Cul t Reviewed date:08/11/2024 12:45:03 PM Interpretation: Performing Lab:[facility], [address] [place] [phone] Notes/Report: Urine, Clean Catch Color Urine Yellow Appearance Urine Clear PH 5.5 5.0-9.0 Glucose Urine UA Negative Negative mg/dL Urine Blood Negative Negative Specific [place] - Urine 1.025 1.005-1.025 Urine Protein Negative Neg-Trace mg/dL Urine Ketones Negative Negative mg/dL Nitrite Urine Negative Negative Leukocyte Esterase Urine Negative Negative RBC Urine 0-2 0-2 /HPF WBC Urine 0-5 0-5 /HPF Squamous Epithelial Cell Urine 0-2 0-2 /HPF Bacteria Urine None Seen None Seen Hyaline Casts Urine 0-2 0-2 /LPF Liver Panel Reviewed date:02/23/2025 12:22:48 PM Interpretation: Performing Lab:[address] [phone] Notes/Report: Bilirubin Total 0.5 0.0-1.0 mg/dL Bilirubin Direct 0.2 0.0-0.5 mg/dL Aspartate Amino Transferase 31 5-37 U/L Alanine Aminotransferase 29 0-40 U/L Total Protein 6.7 6.5-8.0 g/dL Albumin Level 4.1 3.5-5.0 g/dL Alkaline Phosphatase 66 39-117 U/L Glucose Fasting Reviewed date:02/23/2025 12:22:30 PM Interpretation: Performing Lab:[address] [phone] Notes/Report: Glucose Fasting 139 60-99 mg/dL A fasting glucose of 126 mg/dl or greater on more than one occasion is considered diagnostic of diabetes. Lipid Panel with Reflex Reviewed date:02/23/2025 12:22:12 PM Interpretation: Performing Lab:[facility], [address] [place] [phone] Notes/Report: Triglycerides 77 <150 mg/dL Desirable Triglyceride: [...] A1c Reviewed date:02/23/2025 12:22:21 PM Interpretation: Performing Lab:[address] [phone] Notes/Report: Hemoglobin A1c % 7.1 <6.0 % [...] average glucose, using the formula of the C5G-Hcyqyug Average Glucose study (ADAG), Diabetes Care, Vol.31,#8, 2007 Blood Urea Nitrogen (Not yet reviewed by provider) Interpretation: Performing Lab:[facility], [address] [place] [phone] Notes/Report: Blood Urea Nitrogen 23 9-16 mg/dL Creatinine (Not yet reviewed by provider) Interpretation: Performing Lab:[facility], [address] [place] [phone] Notes/Report: Creatinine 0.82 0.5-1.4 mg/dL Estimated Glomerular Filt Rate > 60 Chronic Kidney Disease: Estimated GFR < 60 mL/min/1.73m2 Severe Kidney Disease: Estimated GFR < 15 mL/min/1.73m2 Glucose, finger stick Reviewed date:05/14/2024 09:59:24 AM Interpretation: Performing Lab: Notes/Report: Value 199 Diabetic Eye Exam Reviewed date:07/31/2024 01:39:31 PM Interpretation:No diabetic retinopathy Performing Lab: Notes/Report: No diabetic retinopathy Hold Gold Reviewed date:02/23/2025 12:22:03 PM Interpretation: Performing Lab:[facility], [address] [place] [phone] Notes/Report: Hold Gold See Note Specimen held untested for 24 hours; Call to request Chemistry testing. Reason For Referral Reason Hip pain right Diagnosis 1 Hip pain, right (M25 .551) Referral Organization Tad Guerra MD Referring Provider First Name Tad Referring Provider Last Name Charlie Referring Provider Speciality Internal edicine Referred Provider Tamir Seymour Referred Provider Specialty Orthopedic S urgery General Notes Jenny Abad 12:53:16 PM EDT > info faxedJenniffer Annette 09/11/2024 12:50:09 PM > info mailed to patient Referral Priority Routine Referral Appointment Date 09/28/2024 Reason needs colonoscopy Diagnosis 1 Tubular adenoma (D36 .9) Referral Organization Tad Guerra MD Referring Provider First Name Tad Referring Provider Last Name Charlie Referring Provider Speciality Internal M edicine Referred Provider Manuel Joy Referred Provider Specialty Gastroentero logy General Notes Jenny Abad 0 03/02/2025 01:58:33 PM > fax colonoscopy from 2014 Referral Priority Routine Medications Medication SIG (Take, Route, Frequency, Duration) Notes Start Date End Date Status Ibuprofen 800 MG TAKE 1 TABLET BY CHEL TH THREE TIMES A DAY WITH FOOD OR MILK NEEDED FOR 30 DAYS for 30 Active Atorvastatin Calcium 20 MG TAKE 1 TABLET BY MOUTH EVERY DAY Active metFORMIN HCl 500 MG take 2 tablet by mo [facility] twice daily with a meal for 90 days Orally twice a day Active Immunizations Vaccine Route Administration Date Status Comme nts Fluarix Quadrivalent Unknown 11/20/[address] Alvares PPSV23 (Pnemovax) IM Intramuscular 07/06/2019 Administered Fluarix Quadrivalent IM Intramuscular 01/18/2020 Administe spencer Prevnar 13 IM Intramuscular 07/11/2020 Administered Fluarix Quadrivalent Unknown 08/12/2020 Administered cv s SARS-COV-2 Moderna Unknown 02/10/2021 Administered SARS-COV-2 Moderna Unknown 03/11/2021 Administered Influenza High Dose IM Intramuscular 08/21/2021 Administer ed SARS-COV-2 Moderna Unknown 09/25/2021 [facility] SARS-COV-2 Moderna Unknown 04/09/2022 [facility] Influenza High Dose IM Intramuscular 07/26/2022 Administer ed Shingrix Unknown 09/14/2023 [facility]ered [facility] Shingrix Unknown 12/06/2023 [facility] Influenza High Dose Unknown 08/31/2024 [facility] SARS-COV-2 Moderna 2022 Unknown 08/31/2024 [facility]ered [facility] Social History Tobacco Use: Social History Observation [...] ast year? No Points 0 Interpretation Negative Problems Problem Type SNOMED Code ICD Code Onset Dates Problem Status W/U Status Risk Notes Problem Balanitis (30664558) Balanitis (N48.1) Active c onfirmed Problem 887957853 Irritable bowel syndrome with diarrhea (K58.0) Active confirmed Problem 505584530 Tubular adenoma (D36.9) Active confirmed Problem 2226762338314 Tinnitus, bilate ral (H93.13) Active confirmed Problem Sciatica (43751556) Acute right- sided low back pain with right-sided sciatica (M54.41) Active confirmed Problem 65094473 Sciatica of righ t side (M54.31) Active confirmed Problem Pure hypercholesterolemia (204153019) Pure hypercholesterolemia (E78.00) Active confirmed Problem 68781981 Hypercholesterol emia (E78.00) Active confirmed Problem 791420271 Type 2 diabetes mellitus without complication, without long-term current use of insulin (E11.9) Active confirmed Problem 81892434 Lumbar degenerat zenaida disc disease (M51.36) Active confirmed Vital Signs Blood pressure diastolic 70 mm Hg 03/02/2025 kaylan ght is up 3 pounds since 08-31-24 Height 64 in 03/02/2025 weight is up 3 pounds since 08-31-24 Blood pressure systolic 152 mm Hg 03/02/2025 weig ht is up 3 pounds since 08-31-24 Weight 141 lbs 03/02/2025 weight is up 3 pounds since 08-31-24 BMI 24.2 kg/m2 03/02/2025 weight is up 3 pounds since 08-31-24 Encounters Encounter Location Date Provider Diagnosis Tad Guerra MD [address] [place] [address] Drive [address] [place] [id number] 08/11/2024 Tad Guerra Blood tests for rout ine general physical examination Z00.00 and Type 2 diabetes mellitus without complication, without long-term current use of insulin E11.9 Tad Guerra MD [address] [place] [address] [address] [id number] 02/23/2025 Tad Guerra Type 2 diabetes toni itus without complication, without long-term current use of insulin E11.9 and Hypercholesterolemia E78.00 Tad Guerra MD [address] [place] [address] Drive [address] [place] [id number] 03/02/2025 Tad Guerra Type 2 diabetes toni itus without complication, without long-term current use of insulin E11.9 ; Hypercholesterolemia E78.00 ; Tubular adenoma D36.9 and Acute right-sided low back pain with right-sided sciatica M54.41 Tad Guerra MD [address] [place] [address] Drive [address] [place] [id number] 05/14/2024 Tad Guerra Type 2 diabetes toni itus without complication, without long-term current use of insulin E11.9 and Lumbar degenerative disc disease M51.36 Tad Guerra MD [address] [place], [place] [id number] 08/18/2024 Tad Guerra COVID-19 U07.1 Tad Guerra MD [address] [place] [id number] 08/31/2024 Tad Guerra Hip pain, right M25. 551 ; Annual physical exam Z00.00 ; Murmur, cardiac R01.1 ; Sciatica of right side M54.31 ; Type 2 diabetes mellitus without complication, without long-term current use of insulin E11.9 and Hypercholesterolemia E78.00 Assessments Encounter Date Diagnosis (ICD Code) Assessment Notes Treatment Notes Treatment Clinical Notes Section Notes 08/11/2024 Blood tests for rout ine general physical examination (ICD-10 - Z00.00) 08/11/2024 Type 2 diabetes mellitus without complication, without long-term current use of insulin (ICD-10 - E11.9) 02/23/2025 Type 2 diabetes mellitus without complication, without long-term current use of insulin (ICD-10 - E11.9) 03/02/2025 Type 2 diabetes mellitus without complication, without long-term current use of insulin (ICD-10 - E11.9) stable, will contnue current regiment 05/14/2024 Type 2 diabetes mellitus without complication, without long-term current use of insulin (ICD-10 - E11.9) 05/14/2024 Lumbar degenerative disc disease (ICD-10 - M51.36) need notes and mri results from [facility]/ PATIENT HAS NOT BEEN TO [facility] SINCE 2019. HE WAS SEEN AT OFFICE OF [facility] AND THEY WILL SEND NOTES AND MRI RESULTS . THEIR PHONE NUMBER IS [phone] [facility] 08/18/2024 COVID-19 (ICD-10 - U07.1) not feeling very ill but will send in paxlovid in case he needs it, patient verbaized understanding of medication and directions for use 08/31/2024 Hip pain, right (ICD -10 - M25.551) referral to [facility] [place] 08/31/2024 Annual physical exam (ICD-10 - Z00.00) labs reviewed nd discussed with patient 02/23/2025 Hypercholesterolemia (ICD-10 - E78.00) 03/02/2025 Hypercholesterolemia (ICD-10 - E78.00) doing well on meds, will continue current regiment 08/31/2024 Murmur, cardiac (ICD -10 - R01.1) order faxed to [facility] Patient Reg 03/02/2025 Tubular adenoma (ICD -10 - D36.9) schedule colonoscopy with dr joy 08/31/2024 Sciatica of right si de (ICD-10 - M54.31) seems most likey that the hip pain is from back 03/02/2025 Acute right-sided lo w back pain with right-sided sciatica (ICD-10 - M54.41) has resolved 08/31/2024 Type 2 diabetes mellitus without complication, without long-term current use of insulin (ICD-10 - E11.9) stable, will continue current regiment 08/31/2024 Hypercholesterolemia (ICD-10 - E78.00) stable, will continue current regiment Plan Of Treatment Pending Test Test Name Order Date ECHO 08/31/2024 Blood Urea Nitrogen 03/02/2025 Creatinine 03/02/2025 Next Appt Details Provider Name:Tad Hogan ier, 08/26/2025 08:00:00 AM, [address] [place] [address], [address] [place] [address], [phone], Provider Name:Tad Hogan ier, 09/09/2025 01:00:00 PM, [address] [place] [address], [address], [place], [place], [phone], Insurance Providers Payer Name Payer Address Payer Phone Subscriber Number Group Number Insured Name Patient Relationship to Insured Coverage Start Date Coverage End Date [employer]AGE [address] [place], [place] [id number] RAH LE Self - patient is the insured MEDICARE HIIC [address] [place] [address] [id number] RAH LE Self - patient is the insured Medical (General) History Medical History History ICD Code diabetes since age 43 colonoscopy 2016. due in 10 years
--- OUTSIDE RECORDS SUMMARY | 2025-03-02 18:18 | XMS_ITS ---
Author Organization Tad Guerra MD Address [address] [place], [place] [phone] Care Team Providers Care Title Insurance Sales Representative Name Role Phone Tad Guerra Primary Care Provider [phone] Allergies No Known Allergies Reason For [...] kg/m2 08/31/2024 weight is down [address] [facility] e 9- Encounters Encounter Location Date Provider Diagnosis Tad Guerra MD [address] [facility] [address] [place], [place] [phone] 08/31/2024 Tad Guerra Hip pain, right M25. [...] right (ICD -10 - M25.551) referral to [facility] ortho 08/31/2024 Annual physical exam (ICD-10 - Z00.00) labs reviewed nd discussed with patient 08/31/2024 Murmur, cardiac (ICD -10 - R01.1) order faxed to [facility] Patient Reg 08/31/2024 Sciatica of right si [...] Assessment Notes Hip pain, right referral to [facility] orth o Annual physical exam labs reviewed nd di scussed with patient Murmur, cardiac order faxed to [facility] P atient Reg Sciatica of right side [...] Up: 6 Months, Reason: dm Provider Name:Tad oHgan ier, 08/26/2025 08:00:00 AM, [address] [place] [address], [address] [facility], [place], [place], [phone], Provider Name:Tad Hogan ier, 09/09/2025 01:00:00 PM, [address] [place] [address], [address] [facility], [place], [place], [phone], Progress Notes * BRETT LETOMDOB:1955 (68 yo M)Acc No.[id number]:08/31/2024 Patient:?RAH LE Provider:?Tad Guerra MD :1955???Age:68 Y???Sex:Male Mehdi e:08/31/2024 Address:[address] [place] [address] [id number] Subjective: * Chief Complaints: * ???Annual * [...] cats: dogs:1 dog. Travel outside of the [place]: yes. * Medications:?TakingIbuprofen 800 MG Tablet [...] pounds since 08-18-24. * ???Past Orders: ???Lab:Comprehensive [place]. P arya Fast (Order Date - 08/11/2024) [...] Glucose 151 - mg/dL ???Lab:Microalbumin, Random (Order 08/11/2024) (Collection Date - 08/11/2024) ? Value [...] mg/dL ???Lab:UA ClnCatch+Micro w/r flx Cult (Order 08/11/2024) (Collection Date - 08/11/2024) ? Value Reference Range ?Color Urine Yellow - ?Appearance Urine Clear - ?PH 5.5 5.0-9.0 - ?Glucose Urine UA Negative Neg ative - mg/dL ?Urine Blood Negative Negative - ?Specific [place] - Urine 1.025 1.005-1.025 - ?Urine Protein [...] Treatment: 2.?Hip pain, right? Notes: referral to [facility] ortho? Referral To:Tamir Seymour??Orthopedic Surgery ?Reason:Hip pain right 3.?Murmur, cardiac?Imaging: ECHO Notes: order faxed to [facility] Patient Reg?? 4.?Sciatica of right side? Notes: [...] * Provider:?Tad Guerra MD Date:?1 Generated for Arlin bean/Aditya/Daviditting on:?03/02/2025 06:18 PM EDT History and Physical Notes * [...]
--- OUTSIDE RECORDS SUMMARY | 2025-03-02 18:18 | XMS_ITS ---
Author Organization Tad Guerra MD Address [address] [place], [place] [phone] Care Team Providers Care Local Owner Operator Truck Driver Name Role Phone Tad Guerra Primary Care Provider Allergies No Known Allergies Results Component Value Reference Range Notes Blood Urea Nitrogen (Not yet reviewed by provider) Interpretation: Performing Lab:[facility], [address] [place] [phone] Notes/Report: Blood Urea Nitrogen 23 9-16 mg/dL Creatinine (Not yet reviewed by provider) Interpretation: Performing Lab:[facility], [address] [place] [phone] Notes/Report: Creatinine 0.82 0.5-1.4 mg/dL Estimated Glomerular [...] fax colonoscopy from 2014 Referral Priority Routine REASON FOR VISIT 6 month DM Medications [...] Location Date Provider Diagnosis Tad Guerra MD [address] [place] [address] [address] [place], [place] [phone] 03/02/2025 Tad Guerra Type 2 diabetes toni [...] p ain with right-sided sciatica has resolved Pending Test Test Name Order Date Blood Urea Nitrogen 03/02/2025 Creatinine 03/02/2025 Referrals Referral Date Details 03/02/2025 03/02/2025, needs co longeorgina, Manuel Joy Next Appt Details Provider Name:Tad Hogan ier, 08/26/2025 08:00:00 AM, [address], [address], [place], [phone], Provider Name:Tad Hogan ier, 09/09/2025 01:00:00 PM, [address], [address], [place], [phone], Progress Notes * RAH LEDOB:1955 (69 yo M)Acc No.[id number]:03/02/2025 Progress Notes Patient:?RAH LE Provider:?Tad Guerra MD :1955???Age:69 Y???Sex:Male Mehdi e:03/02/2025 Address:[address] [place], [place] [phone] Subjective: * Chief Complaints: * ???1. 6 month DM. * HPI: ???Symptom(s):?patient is a 69 yo male here for follow up of diabetes. * ROS:?General/Constitutional:?Denies?Chills.?Denies?Fatigue.?Denies?Fever.?Denies?Headache.?ENT:?Denies?Sore throat.?Endocrine:?Denies?Difficulty sleeping.?Denies?Dizziness.?Denies?Excessive sweating.?Denies?Excessive thirst.?Denies?Frequent urination.?Respiratory:?Denies?Cough.?Denies?Shortness of breath at rest.?Denies?Shortness of breath with exertion.?Gastrointestinal:?Denies?Diarrhea.?Denies?Nausea.? * Medical History:?Diabetes si nce age 43, Colonoscopy 2016. due in 10 years. * Medications:?Taking Ibuprofe n 800 MG Tablet TAKE 1 TABLET BY MOUTH THREE TIMES A DAY WITH FOOD OR MILK NEEDED FOR 30 DAYS , Taking metFORMIN HCl 500 MG Tablet take 2 tablet by mouth twice daily with a meal for 90 days Orally twice a day , Taking Atorvastatin Calcium 20 MG Tablet TAKE 1 TABLET BY MOUTH EVERY DAY , Medication List reviewed and reconciled with the patient * Allergies:?N.K.D.A. Objective: * Vitals:?Ht: 64, Wt: 141, BMI :24.2, BP:152/70, Repeat BP:126/70, Wt-k.96. weight is up 3 pounds since 08-31-24. * ???Past Orders: ???Lab:Liver Panel (Order Da te 02/23/2025) (Collection Date & Time - 02/23/2025 07:30 AM) ? Value Reference Range ?Bilirubin Total 0.5 0.0- 1.0 - mg/dL ?Bilirubin Direct 0.2 0.0 -0.5 - mg/dL ?Aspartate Amino Transferase 31 5-37 - U/L ?Alanine Aminotransferase 29 0-40 - U/L ?Total Protein 6.7 6.5-8. 0 - g/dL ?Albumin Level 4.1 3.5-5. 0 - g/dL ?Alkaline Phosphatase 66 39-117 - U/L ???Lab:Glucose Fasting (Orde r Date - 02/23/2025) (Collection Date & Time - 02/23/2025 07:30 AM) ? Value Reference Range ?Glucose Fasting 139 H 60-9 9 - mg/dL ???Lab:Lipid Panel with Refl ex (Order Date - 02/23/2025) (Collection Date & Time - 02/23/2025 07:30 AM) ? Value Reference Range ?Triglycerides 77 <150 - mg/dL ?Cholesterol 140 <200 - m g/dL ?LDL Cholesterol Calculated 60 <100 - mg/dL ?HDL Cholesterol 65 >40 - mg/dL ???Lab:Hemoglobin A1c (Order Date - 02/23/2025) (Collection Date & Time - 02/23/2025 07:30 AM) ? Value Reference Range ?Hemoglobin A1c % 7.1 H <6. 0 - % ?Estimated Average Glucose 157 - mg/dL * Examination: ???General Examination: ?GENERAL APPEARANCE:?alert, well hydrated, in no distress.?HEAD:?normocephalic.?SKIN:?good turgor.?HEART:?regular rate and rhythm, no murmurs, rubs, gallops.?LUNGS:?no wheezes, rales, rhonchi, good air movement, clear to auscultation bilaterally.? Assessment: * Assessment: 1.?Type 2 diabetes mellitus without complication, without long-term current use of insulin - E11.9 (Primary)???2.?Hypercholesterolemia - E78.00???3.?Tubular adenoma - D36.9???4.?Acute right-sided low back pain with right-sided sciatica - M54.41??? Plan: * Treatment: 2.?Hypercholesterolemia? Continue Atorvastatin Calcium Tablet, 20 MG, TAKE 1 TABLET BY MOUTH EVERY DAY.?? Notes: doing well on meds, will continue current regiment?? 3.?Tubular adenoma? Notes: schedule colonoscopy with dr joy? Referral To:Manuel Joy??Gastroenterology ?Reason:needs colonoscopy 4.?Acute right-sided low yasmin k pain with right-sided sciatica? Notes: has resolved?? * Procedure Codes:?80553 VENIP UNCT, ROUTINE* * * The named appointment provid er may or may not be the originator of this progress note, and it is not deemed complete until electronically signed by the appointment provider. Sign off status: Pending * Provider:?Tad Guerra MD Date:?0 03/02/2025 Generated for Arlin bean/Aditya/eTransmitting on:?03/02/2025 06:18 PM EDT History and Physical [...]
--- OUTSIDE RECORDS SUMMARY | 2025-03-02 18:18 | XMS_ITS ---
Author Organization Tad Guerra MD Address [address] [place], [place] [phone] Care Team Providers Care Boat Joiner Helper Name Role Phone Tad Guerra Primary Care Provider Results Component Value Reference Range Notes Liver Panel Reviewed date:02/23/2025 12:22:48 PM Interpretation: Performing Lab:[facility], [address] [place] [phone] Notes/Report: Bilirubin Total 0.5 0.0-1.0 mg/dL Bilirubin Direct 0.2 0.0-0.5 mg/dL Aspartate Amino Transferase 31 5-37 U/L Alanine Aminotransferase 29 0-40 U/L Total Protein 6.7 6.5-8.0 g/dL Albumin Level 4.1 3.5-5.0 g/dL Alkaline Phosphatase 66 39-117 U/L Glucose Fasting Reviewed date:02/23/2025 12:22:30 PM Interpretation: Performing Lab:[address] [phone] Notes/Report: Glucose Fasting 139 60-99 mg/dL A fasting glucose of 126 mg/dl or greater on more than one occasion is considered diagnostic of diabetes. Lipid Panel with Reflex Reviewed date:02/23/2025 12:22:12 PM Interpretation: Performing Lab:[facility], [address] [place] [phone] Notes/Report: Triglycerides 77 <150 mg/dL Desirable Triglyceride: [...] A1c Reviewed date:02/23/2025 12:22:21 PM Interpretation: Performing Lab:[facility], [address] [place] [phone] Notes/Report: Hemoglobin A1c % 7.1 <6.0 % [...] average glucose, using the formula of the H7W-Gswxmjq Average Glucose study (ADAG), Diabetes Care, Vol.31,#8, Jun. 2007 REASON FOR VISIT fasting lipids Encounters Encounter Location Date Provider Diagnosis Tad Guerra MD [address] [place] [address] [place] [phone] 02/23/2025 Tad Guerra Type 2 diabetes toni [...] Treatment Next Appt Details Provider Name:Tad krishnar, 08/26/2025 08:00:00 AM, [address], [address], [place], [phone], Provider Name:Tad Hogan ier, 09/09/2025 01:00:00 PM, [address], [address], [place], [phone], Progress Notes * RAH LEDOB:1955 (69 yo M)Acc No.[id number]:02/23/2025 Progress Note Patient:?RAH LE Provider:?Tad Guerra MD :1955???Age:69 Y???Sex:Male Mehdi e:02/23/2025 Address:[address] [place], [place] [phone] Subjective: * Chief Complaints: * ???1. Fasting lipids. * Medical History:? Objective: * Vitals:? Assessment: * Assessment: 1.?Type 2 diabetes mellitus without complication, without long-term current use of insulin - E11.9 (Primary)???2.?Hypercholesterolemia - E78.00??? Plan: * Treatment: 2.?Hypercholesterolemia?LAB: Liver Panel (Collection Date & Time - 02/23/2025 07:30 AM) ?LAB: Glucose Fasting (Collection Date & Time - 02/23/2025 07:30 AM) ?LAB: Lipid Panel with Reflex (Collection Date & Time - 02/23/2025 07:30 AM) ?LAB: Hemoglobin A1c (Collection Date & Time - 02/23/2025 07:30 AM) * Procedure Codes:?10249 VENIP UNCT, ROUTINE* * * The named appointment provid er may or may not be the originator of this progress note, and it is not deemed complete until electronically signed by the appointment provider. Sign off status: Pending * Provider:?Tad Guerra MD Date:?0 02/23/2025 Generated for Arlin bean/Aditya/eTransmitting on:?03/02/2025 06:17 PM EDT
== END 2025-03-02 15:20 | disposition home or self-care (01) ==
LOC: HO.LNP 15:19
PROVIDERS: Visit Provider Internal Medicine
DX: E11.9 Type 2 diabetes mellitus without complications (principal)
CPT/HCPCS: 82565; 84520

== ENCOUNTER 2025-08-26 10:50 | Outpatient (REF) | payer MEDICARE, SELFPAY ==
--- OUTSIDE RECORDS SUMMARY | 2024-08-31 09:00 | XMS_ITS ---
Author Organization Tad Guerra MD Address [address] [place], [place] [phone] Care Team Providers Care Log Operations Coordinator Name Role Phone Tad Guerra Primary Care [...] kg/m2 08/31/2024 weight is down 2 pounds [facility] e 9- Encounters Encounter Location Date Provider Diagnosis Tad Guerra MD [address] [facility] [address] [place], [place] [phone] 08/31/2024 Tad Guerra Hip pain, right M25. [...] right (ICD -10 - M25.551) referral to [facility] [place] 08/31/2024 Annual physical exam (ICD-10 - Z00.00) labs reviewed nd discussed with patient 08/31/2024 Murmur, cardiac (ICD -10 - R01.1) order faxed to [facility] Patient Reg 08/31/2024 Sciatica of right si [...] Assessment Notes Hip pain, right referral to [facility] orth o Annual physical exam labs reviewed nd di scussed with patient Murmur, cardiac order faxed to [facility] P atient Reg Sciatica of right side [...] Up: 6 Months, Reason: dm Provider Name:Tad Hogan ier, 09/09/2025 01:00:00 PM, [address] [place] [address], [address], [place], [place], [phone], Progress Notes * RAH LEDOB:1955 (68 yo M)Acc No.[id number]:08/31/2024 Patient: Jens EDWARDS RAH Provider: Jens Guerra MD :1955 A ge:68 Y S ex:Male Date:08/31/2024 Address:[address] [place], [place] [id number] Subjective: * Chief Complaints: * A nnual [...] cats: dogs:1 dog. Travel outside of the [place]: yes. * Medications: T akingIbuprofen 800 [...] 08-18-24. * P ast Orders: L ab:Comprehensive [place]. Panel Fast (Order Date - 08/11/2024) (Collection [...] mg cr L ab:Lipid Panel (Order Date - 08/11/2024) (Collection Date - [...] mg/dL Urine Blood Negative Negative - Specific [place] - Urine 1.025 1.005-1.025 - Urine Protein [...] H ip pain, right Notes: referral to [facility] [place] Referral To:Tamir Seymour Orthopedic Surgery Reason:Hip pain right 3. M urmur, cardiac I maging: ECHO Notes: order faxed to [facility] Patient Reg 4. S ciatica of right [...] Jens Guerra MD Date: Generated for Arlin bean/Aditya/Rupa on: 12:42 PM EDT History and Physical Notes * [...]
--- OUTSIDE RECORDS SUMMARY | 2025-02-23 03:30 | XMS_ITS ---
Author Organization Tad Guerra MD Address [address] [place], [place] [phone] Care Team Providers Care Emergency Room Clinician Name Role Phone Tad Guerra Primary Care Provider Results Component Value Reference Range Notes Liver Panel Reviewed date:02/23/2025 12:22:48 PM Interpretation: Performing Lab:[facility], [address] [place] [phone] Notes/Report: Bilirubin Total 0.5 0.0-1.0 mg/dL Bilirubin Direct 0.2 0.0-0.5 mg/dL Aspartate Amino Transferase 31 5-37 U/L Alanine Aminotransferase 29 0-40 U/L Total Protein 6.7 6.5-8.0 g/dL Albumin Level 4.1 3.5-5.0 g/dL Alkaline Phosphatase 66 39-117 U/L Glucose Fasting Reviewed date:02/23/2025 12:22:30 PM Interpretation: Performing Lab:[address] [phone] Notes/Report: Glucose Fasting 139 60-99 mg/dL A fasting glucose of 126 mg/dl or greater on more than one occasion is considered diagnostic of diabetes. Lipid Panel with Reflex Reviewed date:02/23/2025 12:22:12 PM Interpretation: Performing Lab:[facility], [address] [place] [phone] Notes/Report: Triglycerides 77 <150 mg/dL Desirable Triglyceride: [...] A1c Reviewed date:02/23/2025 12:22:21 PM Interpretation: Performing Lab:[facility], [address] [place] [phone] Notes/Report: Hemoglobin A1c % 7.1 <6.0 % [...] average glucose, using the formula of the C7P-Cilowgu Average Glucose study (ADAG), Diabetes Care, Vol.31,#8, Jun. 2007 REASON FOR VISIT fasting lipids Encounters Encounter Location Date Provider Diagnosis Tad Guerra MD [address] [place] [address] [place] [phone] 02/23/2025 Tad Guerra Type 2 diabetes toni [...] Treatment Next Appt Details Provider Name:Tad krishnar, 09/09/2025 01:00:00 PM, [address], [address], [place], [place], [phone], Progress Notes * RAH LEDOB:1955 (69 yo M)Acc No.[id number]:02/23/2025 Progress Note Patient: RAH ANTONIO Provider: Jens Guerra MD :1955 A ge:69 Y S ex:Male Date:02/23/2025 Address:[address] [place], [place] [phone] Subjective: * Chief Complaints: * 1 . [...] MD Date: 0 02/23/2025 Generated for Arlin bean/Aditya/Martitasmitting on: 1 12:42 PM EDT
--- OUTSIDE RECORDS SUMMARY | 2025-03-02 09:30 | XMS_ITS ---
Author Organization Tad Guerra MD Address [address] [place], [place] [phone] Care Team Providers Care Production Manufacturing Worker Name Role Phone Tad Guerra Primary Care Provider [phone] Allergies No Known Allergies Results Component Value Reference Range Notes Blood Urea Nitrogen Reviewed date:03/04/2025 06:45:15 PM Interpretation: Performing Lab:[facility], [address] [place] [phone] Notes/Report: Blood Urea Nitrogen 23 9-16 mg/dL Creatinine Reviewed date:03/04/2025 06:38:28 PM Interpretation: Performing Lab:[facility], [address] [place] [phone] Notes/Report: Creatinine 0.82 0.5-1.4 mg/dL Estimated Glomerular [...] Date Provider Diagnosis Tad Guerra MD [address] [place] [address] [place] [phone] 03/02/2025 Tad Guerra Type 2 diabetes toni [...] Next Appt Details Provider Name:Tad Hogan ier, 09/09/2025 01:00:00 PM, [address] [facility] [address], [address], [place], [place], [phone], Progress Notes * RAH LEDOB:1955 (69 yo M)Acc No.[id number]:03/02/2025 Progress Notes Patient: RAH ANTONIO Provider: Jens Guerra MD :1955 A ge:69 Y S ex:Male Date:03/02/2025 Address:[address] [place], [place] [phone] Subjective: * Chief Complaints: * 6 month [...] MD Date: 0 03/02/2025 Generated for Arlin bean/Aditya/Daviditting on: 1 12:42 PM EDT History and Physical Notes [...]
--- OUTSIDE RECORDS SUMMARY | 2025-07-13 05:53 | XMS_ITS ---
Author Organization Tad Guerra MD Address [address] [place] [phone] Care Team Providers Care Auricular Acupuncturist Name Role Phone Tad Guerra Primary Care Provider REASON FOR VISIT refill Medications Medication SIG (Take, Route, Frequency, Duration) Notes Start Date End Date Status Atorvastatin Calcium 20 MG TAKE 1 TABLET BY MOUTH EVERY DAY Once a day for 90 days Active Encounters Encounter Location Date Provider Diagnosis Tad Guerra MD [address] [place] [address] Drive [address] [place] [phone] 07/13/2025 Tad Guerra Hypercholesterolemia E78.00 Assessments Encounter Date Diagnosis (ICD Code) Assessment Notes Treatment Notes Treatment Clinical Notes Section Notes 07/13/2025 Hypercholesterolemia (ICD-10 - E78.00) Plan Of Treatment Medication Medication Name Sig Start Date Stop Date Notes Atorvastatin Calcium 20 MG TAKE 1 TABLET BY MOUTH EVERY DAY Once a day for 90 days Next Appt Details Provider Name:Tad guzman, 09/09/2025 01:00:00 PM, [address] [facility], Suite [facility], [place], [place], [phone], Progress Notes * RAH LEDOB:1955 (69 yo M)Acc No.[id number]:07/13/2025 Patient: Jens RAH EDWARDS :1955 A ge:69 Y S ex:Male Address:[address] [place] [address], [address] * Refills Refill Atorvastatin Calcium Tablet, 20 MG, 90, TAKE 1 TABLET BY MOUTH EVERY DAY, Once a day, 90 days, Refills=3 * true * Date: Generated for Arlin bean/Aditya/Rupa on: 1 12:43 PM EDT
--- OUTSIDE RECORDS SUMMARY | 2025-08-26 04:00 | XMS_ITS ---
Author Organization Tad Guerra MD Address [address] [place], [place] [id number] Care Team Providers Care Novelty Printing Machine Operator Name Role Phone Tad Guerra Primary Care Provider Results Component Value Reference Range Notes Complete Blood Count Auto Di ff (Not yet reviewed by provider) Interpretation: Performing Lab:[facility], [address] [place] [phone] Notes/Report: White Blood Count 7.3 4.8-10.8 X10*3/uL [...] X10*3/uL NRBC Abs Auto 0.000 0.0-0.012 X10*3/uL UA ClnCatch+Micro w/rflx Cul t (Not yet reviewed by provider) Interpretation: Performing Lab:[facility], [address] [place] [phone] Notes/Report: Urine, Clean Catch Color Urine Yellow Appearance Urine Clear PH 5.5 5.0-9.0 Glucose Urine UA Negative Negative mg/dL Urine Blood Negative Negative Specific [place] - Urine 1.010 1.005-1.025 Urine Protein Negative Neg-Trace mg/dL Urine Ketones Negative Negative mg/dL Nitrite Urine Negative Negative Leukocyte Esterase Urine Negative Negative RBC Urine 0-2 0-2 /HPF WBC Urine 0-5 0-5 /HPF Squamous Epithelial Cell Urine 0-2 0-2 /HPF Bacteria Urine None Seen None Seen Hyaline Casts Urine 0-2 0-2 /LPF Lipid Panel Reviewed date:08/26/2025 12:32:07 PM Interpretation: Performing Lab:[facility], [address] [place] [phone] Notes/Report: Triglycerides 55 <150 mg/dL Desirable Triglyceride: [...] Random Reviewed date:08/26/2025 12:32:56 PM Interpretation: Performing Lab:[facility], [address] [place] [phone] Notes/Report: Creatinine Urine 58.85 Microalbumin Urine < 5.0 Microalbum/Creatinine Ratio Ur TNP <30 ug/mg cr Unable to calculate albumin/creatinine ratio due to low microalbumin or creatinine result. Hemoglobin A1c Reviewed date:08/26/2025 12:35:06 PM Interpretation: Performing Lab:[facility], [address] [place] [phone] Notes/Report: Hemoglobin A1c % 7.3 <6.0 % [...] average glucose, using the formula of the X2V-Eletbcy Average Glucose study (ADAG), Diabetes Care, Vol.31,#8, Jun. 2007 REASON FOR VISIT yearly fasting labs Immunizations Vaccine Route Administration Date Status Comme nts Influenza High Dose IM Intramuscular 08/26/2025 Administer ed Encounters Encounter Location Date Provider Diagnosis Tad Guerra MD [address] [place] [address] Drive [address] [place], [place] [id number] 08/26/2025 Tad Guerra Blood tests for rout ine general physical examination Z00.00 ; Type 2 diabetes mellitus without complication, without long-term current use of insulin E11.9 ; Hypercholesterolemia E78.00 and Encounter for administration of vaccine Z23 Assessments Encounter Date Diagnosis (ICD Code) Assessment Notes Treatment Notes Treatment Clinical Notes Section Notes 08/26/2025 Blood tests for rout ine general physical examination (ICD-10 - Z00.00) 08/26/2025 Type 2 diabetes toni itus without complication, without long-term current use of insulin (ICD-10 - E11.9) 08/26/2025 Hypercholesterolemia (ICD-10 - E78.00) 08/26/2025 Encounter for administration of vaccine (ICD-10 - Z23) Plan Of Treatment Pending Test Test Name Order Date Complete Blood Count Auto Diff Comprehensive [place]. Panel Fast PSA,Total (Free>4and<10) 08/26/2025 UA ClnCatch+Micro w/rflx Cult 08/26/2025 Next Appt Details Provider Name:Tad Hogan ier, 09/09/2025 01:00:00 PM, [address] [place] [address], [address], [place], [place], [id number], Progress Notes * RAH LEDOB:1955 (69 yo M)Acc No.[id number]:08/26/2025 Progress Note Patient: Jens VERATony RAH Provider: Jens Guerra MD :1955 A ge:69 Y S ex:Male Date:08/26/2025 Address:[address] [place], [place] [id number] Subjective: * Chief Complaints: * 1 . Yearly fasting labs. * Medical History: Objective: * Vitals: Assessment: * Assessment: 1. B lood tests for routine general physical examination - Z00.00 (Primary) 2 .?Type 2 diabetes mellitus without complication, without long-term current use of insulin - E11.9 3 . H ypercholesterolemia - E78.00 4 . E ncounter for administration of vaccine - Z23 Plan: * Treatment: 2. T ype 2 diabetes mellitus without complication, without long-term current use of insulin L AB: Complete Blood Count Auto Diff (Collection Date & Time - 08/26/2025 08:00 AM) L AB: Comprehensive [place]. Panel Fast L AB: PSA,Total (Free>4and<10) L AB: UA ClnCatch+Micro w/rflx Cult (Collection Date & Time - 08/26/2025 08:00 AM) L AB: Lipid Panel (Collection Date & Time - 08/26/2025 08:00 AM) L AB: Microalbumin, Random (Collection Date & Time - 08/26/2025 08:00 AM) L AB: Hemoglobin A1c (Collection Date & Time - 08/26/2025 08:00 AM) 3. H ypercholesterolemia L AB: Complete Blood Count Auto Diff (Collection Date & Time - 08/26/2025 08:00 AM) L AB: Comprehensive [place]. Panel Fast L AB: PSA,Total (Free>4and<10) L AB: UA ClnCatch+Micro w/rflx Cult (Collection [...] * Procedure Codes: 3 6415 VENIPUNCT, ROUTINE*, 22749 FLU VACC PRSV FREE INC ANTIG, G0008 ADMN FLU VAC NO FEE SCHED SAME DAY * * The named appointment provid er may or may not be the originator of this progress note, and it is not deemed complete until electronically signed by the appointment provider. Sign off status: Pending * Provider: Jens Guerra MD Date: Generated for Arlin bean/Aditya/Daviditting on: 12:42 PM EDT
[2025-08-26 10:56] LABS: MANUAL DIFF FLAG NO
[2025-08-26 11:19] LABS: Hematocrit 40.7 % (42.0-52.0); Hemoglobin 14.0 g/dl (14.0-18.0); Imm Gran Abs Auto 0.02 X10*3/uL (0.00-0.03); Imm Gran Pct Auto 0.3 % (0.0-0.4); Lymphocytes Absolute Auto 2.4 X10*3/uL (1.2-4.9); Mean Corpuscular HGB Conc 34.4 g/dl (31.0-36.0); Mean Corpuscular Hemoglobin 29.8 pg (27.0-33.0); Mean Corpuscular Volume 86.6 fL (80.0-98.0); NRBC Abs Auto 0.000 X10*3/uL (0.0-0.012); NRBC Pct Auto 0.0 /100WBC (0.0-0.2); Platelet Count 320 X10*3/uL (160-400); Red Blood Count 4.70 X10*6/uL (4.60-5.80); White Blood Count 7.3 X10*3/uL (4.8-10.8)
[2025-08-26 11:23] LABS: Appearance Urine Clear; Glucose Urine UA Negative (Negative); PH 5.5 (5.0-9.0); Specific Gravity - Urine 1.010 (1.005-1.025)
[2025-08-26 11:35] LABS: Alanine Aminotransferase 25 U/L (0-40); Albumin Level 4.2 g/dL (3.5-5.0); Alkaline Phosphatase 76 U/L (39-117); Anion Gap 11 (12-20); Aspartate Amino Transferase 33 U/L (5-37); Blood Urea Nitrogen 18 mg/dL (9-16); Calcium 9.2 mg/dL (8.4-10.2); Carbon Dioxide 27 mmol/L (22-29); Chloride 105 mmol/L (96-108); Cholesterol 149 mg/dL (<200); Estimated Glomerular Filt Rate > 60; HDL Cholesterol 70 mg/dL (>40); Potassium 4.0 mmol/L (3.3-5.1); Sodium 139 mmol/L (135-145); Total Protein 6.9 g/dL (6.5-8.0); Triglycerides 55 mg/dL (<150)
[2025-08-26 11:48] LABS: Prostate Specific Antigen 2.68 ng/mL (<0.05-4.0)
--- OUTSIDE RECORDS SUMMARY | 2025-08-26 12:42 | XMS_ITS | Clinical Summary ---
Author Organization [facility]erg[facility] With [facility] Address [address] [address] Phone Care Team Providers Care Microbiology Lab Technician Name Role Phone Tad Guerra MD Primary Care Provider Medications No known medications Social History Tobacco Use Types Packs/Day Years Used Date Smoking Tobacco: Never Assessed Education Answer Date Recorded Are you interested in more education? Not on julia e 03/22/2023 Are you concerned about learning? Not on file 03/22/2023 No 03/22/2023 No 03/22/2023 Digital Access Answer Date Recorded No 04/20/2023 No 04/20/2023 Reliable internet access at home? Not on file 04/20/2023 Device with a working camera? Not on file Sex and Gender Information Value Date Recorded Sex Assigned at Not on file Legal Sex Male 9:58 PM EDT Gender Identity Not on file Sexual Orientation Not on file Plan of Treatment Health Maintenance Due Date Last Done Comments LIPID PANEL 1955 DEPRESSION SCREENING 1965 SMOKING Hx and SMOKELESS TOBACCO SCREENING 1966 HEPATITIS C SCREENING 1971 COLOGUARD 1998 COLONOSCOPY 1998 COLORECTAL CANCER SCREENING 1998 FIT TEST 1998 FOBT 1998 SIGMOIDOSCOPY 1998 VIRTUAL COLONOSCOPY 1998 ZOSTER VACCINES (1 of 2) 2003 INFLUENZA VACCINE (#1) 2025 1, 08/04/2020, 01/18/2020, Additional history exists COVID-19 VACCINE ( season) 2025 09/25/2021, 03/11/2021, 02/10/2021 Adult Td,Tdap Booster 04/19/2027 04/19/2017 RSV VACCINE (1 - 1-dose 75+ series) 2028 PNEUMOCOCCAL VACCINES (50+ years) Completed 07/11/2020, 07/06/2019, 10/16/2016 HEPATITIS A VACCINES Aged Out No long er eligible based on patient's age to complete this topic HIB VACCINES Aged Out No longer eligi ble based on patient's age to complete this topic MENINGOCOCCAL VACCINES (ACWY) Aged Out No longer eligible based on patient's age to complete this topic MENINGOCOCCAL VACCINES (B) Aged Out N o longer eligible based on patient's age to complete this topic Medical Devices Not on file Insurance [employer] PPO MEDICARE REPLACEMENT MEDICARE PART A & B [employer] O MEDICARE REPLACEMENT MEDICARE PART A & B [employer] O MEDICARE REPLACEMENT MEDICARE PART A & B [employer] P[employer] MEDICARE REPLACEMENT MEDICARE PART A & B [employer] P[employer] MEDICARE REPLACEMENT MEDICARE PART A & B [employer] [facility] MEDICARE REPLACEMENT MEDICARE PART A & B A[employer] O MEDICARE REPLACEMENT MEDICARE PART A & [facility] RE[facility] MEDICARE PART A & B [employer] PPO MEDICARE REPLACEMENT MEDICARE PART A & B Care Teams Microbiology Lab Technician Relationship Specialty Start Date End Date Tad Guerra MD [address] [place] [address] [place] [id number] PCP - General Internal Medicine 10/16/21 Additional Source Comments The information contained in this document represents components of the legal health record. It is not the complete legal health record.[facility] With [facility]
--- OUTSIDE RECORDS SUMMARY | 2025-08-26 12:42 | XMS_ITS | Patient Health Record ---
Author Organization [facility] Address [address] [place] [address] Care Team Providers Care Cut Off Saw Operator Name Role Phone Charlie WATTS, Tad Primary Care Provider Manuel Soliman [phone] Allergies No Known Allergies Reason For Referral No Information Medications Medication SIG (Take, Route, Frequency, Duration) Notes Start Date End Date Status metFORMIN HCl 500 MG 1 tablet with a james l Orally Once a day for 30 day(s) 07/01/2025 Active Ibuprofen 800 MG 1 tablet with food o r milk as needed Orally every 8 hrs 07/01/2025 Active Atorvastatin Calcium 20 MG 1 tablet Oral ly Once a day for 30 day(s) 07/01/2025 Active Immunizations Vaccine Route Administration Date Status Comme nts Influenza Unknown 09/15/2024 Administered Social History Tobacco Use: Social History Observation Description Date Details (start date - stop date) Never Smoker NA - NA Tobacco Control (Standard) Question Answer Notes Tobacco use: Nonsmoker AUDIT-C (Standard) Question Answer Notes Did you have a drink containing alcohol in the p ast year? No Points 0 Interpretation Negative Problems Problem Type SNOMED Code ICD Code Onset Dates Problem Status W/U Status Risk Notes Problem Colon cancer screening (201617287) Colon cancer screening (Z12.11) Active confirmed Problem Preprocedural examination (021665101611421) Preprocedural examination (Z01.818) Active confirmed Problem History of adenomatous polyp of colon (107170104) History of adenomatous polyp of colon (Z86.0101) Active confirmed Vital Signs Temperature 98.6 degrees Fahrenheit 07/01/2025 Blood pressure diastolic 01 mm Hg 07/01/2025 Height 64 in 07/01/2025 Blood pressure systolic 001 mm Hg 07/01/2025 Weight 141.6 lbs 07/01/2025 BMI 24.3 kg/m2 07/01/2025 Procedures Procedure Date Ordered Date Performed Result Body Sit e COLONOSCOPY 07/01/2025 N/A Encounters Encounter Location Date Provider Diagnosis [facility] [address] [place] [address] 07/01/2025 Manuel Patel Colon cancer screeni ng Z12.11 ; Preprocedural examination Z01.818 and History of adenomatous polyp of colon Z86.0101 Assessments Encounter Date Diagnosis (ICD Code) Assessment Notes Treatment Notes Treatment Clinical Notes Section Notes 07/01/2025 Colon cancer screening (ICD-10 - Z12.11) Overall, Leo appears quite well. Given his age, excellent clinical appearance, the previous history of a small tubular adenoma removed in the past, and his last colonoscopy being just over 10 years ago, I did recommend a follow-up colonoscopy for further screening purposes. We did review the rationale for this in regard to colon cancer prevention. Full consent has been obtained for this, including risks of bleeding and perforation. The procedure will be done with monitored anesthesia care. He was given the below instructions regarding adjustment of his medications for the procedure. Leo was comfortable with this plan. Thank you again for allowing me to participate in Leo's care. I shall continue to keep you advised of his progress. 07/01/2025 Preprocedural examination (ICD-10 - Z01.818) Overall, Leo appears quite well. Given his age, excellent clinical appearance, the previous history of a small tubular adenoma removed in the past, and his last colonoscopy being just over 10 years ago, I did recommend a follow-up colonoscopy for further screening purposes. We did review the rationale for this in regard to colon cancer prevention. Full consent has been obtained for this, including risks of bleeding and perforation. The procedure will be done with monitored anesthesia care. He was given the below instructions regarding adjustment of his medications for the procedure. Leo was comfortable with this plan. Thank you again for allowing me to participate in Leo's care. I shall continue to keep you advised of his progress. 07/01/2025 History of adenomatous polyp of colon (ICD-10 - Z86.0101) Overall, Leo appears quite well. Given his age, excellent clinical appearance, the previous history of a small tubular adenoma removed in the past, and his last colonoscopy being just over 10 years ago, I did recommend a follow-up colonoscopy for further screening purposes. We did review the rationale for this in regard to colon cancer prevention. Full consent has been obtained for this, including risks of bleeding and perforation. The procedure will be done with monitored anesthesia care. He was given the below instructions regarding adjustment of his medications for the procedure. Leo was comfortable with this plan. Thank you again for allowing me to participate in Leo's care. I shall continue to keep you advised of his progress. Plan Of Treatment Pending Test Test Name Order Date COLONOSCOPY 07/01/2025 Next Appt Details Provider Name:Manuel Patel , 10/04/2025 10:30:00 AM, [address] [place] [address] , [place], [place], [phone], Insurance Providers Payer Name Payer Address Payer Phone Subscriber Number Group Number Insured Name Patient Relationship to Insured Coverage Start Date Coverage End Date [facility] [address] [place], [place] [id number] LEO LE Self - patient is the insured Medical (General) History Medical History History ICD Code NIDDM hyperlipidemia Denies DE,CVA,Lung disease,renal disease He has had a negative screen ing colonoscopy at age 48 and then a small tubular adenoma removed in [place] [address] [place]. He has not had a colonoscopy since that time. Surgical History Surgery Date(Month/Year) Right rotator cuff
--- OUTSIDE RECORDS SUMMARY | 2025-08-26 12:43 | XMS_ITS | Patient Health Record ---
Author Organization Tad Guerra MD Address [address] [place], [place] [id number] Care Team Providers Care Sand Cutter Operator Name Role Phone Tad Guerra Primary Care Provider Allergies No Known Allergies Results Component Value Reference Range Notes Liver Panel Reviewed date:02/23/2025 12:22:48 PM Interpretation: Performing Lab:[facility], [address] [place] [phone] Notes/Report: Bilirubin Total 0.5 0.0-1.0 mg/dL Bilirubin Direct 0.2 0.0-0.5 mg/dL Aspartate Amino Transferase 31 5-37 U/L Alanine Aminotransferase 29 0-40 U/L Total Protein 6.7 6.5-8.0 g/dL Albumin Level 4.1 3.5-5.0 g/dL Alkaline Phosphatase 66 39-117 U/L Glucose Fasting Reviewed date:02/23/2025 12:22:30 PM Interpretation: Performing Lab:[facility], [address] [place] [phone] Notes/Report: Glucose Fasting 139 60-99 mg/dL A fasting glucose of 126 mg/dl or greater on more than one occasion is considered diagnostic of diabetes. Lipid Panel with Reflex Reviewed date:02/23/2025 12:22:12 PM Interpretation: Performing Lab:[facility], [address] [place] [phone] Notes/Report: Triglycerides 77 <150 mg/dL Desirable Triglyceride: [...] A1c Reviewed date:02/23/2025 12:22:21 PM Interpretation: Performing Lab:[address] [phone] Notes/Report: Hemoglobin A1c % 7.1 <6.0 % [...] average glucose, using the formula of the O1F-Hirvcai Average Glucose study (ADAG), Diabetes Care, Vol.31,#8, 2007 Complete Blood Count Auto Di ff (Not yet reviewed by provider) Interpretation: Performing Lab:[facility], [address] [place] [phone] Notes/Report: White Blood Count 7.3 4.8-10.8 X10*3/uL [...] (Not yet reviewed by provider) Interpretation: Performing Lab:[address] [phone] Notes/Report: Urine, Clean Catch Color Urine Yellow Appearance Urine Clear PH 5.5 5.0-9.0 Glucose Urine UA Negative Negative mg/dL Urine Blood Negative Negative Specific [place] - Urine 1.010 1.005-1.025 Urine Protein Negative Neg-Trace mg/dL Urine Ketones Negative Negative mg/dL Nitrite Urine Negative Negative Leukocyte Esterase Urine Negative Negative RBC Urine 0-2 0-2 /HPF WBC Urine 0-5 0-5 /HPF Squamous Epithelial Cell Urine 0-2 0-2 /HPF Bacteria Urine None Seen None Seen Hyaline Casts Urine 0-2 0-2 /LPF Lipid Panel Reviewed date:08/26/2025 12:32:07 PM Interpretation: Performing Lab:[address] [phone] Notes/Report: Triglycerides 55 <150 mg/dL Desirable Triglyceride: [...] Random Reviewed date:08/26/2025 12:32:56 PM Interpretation: Performing Lab:[address] [phone] Notes/Report: Creatinine Urine 58.85 Microalbumin Urine < 5.0 Microalbum/Creatinine Ratio Ur TNP <30 ug/mg cr Unable to calculate albumin/creatinine ratio due to low microalbumin or creatinine result. Hemoglobin A1c Reviewed date:08/26/2025 12:35:06 PM Interpretation: Performing Lab:[facility], [address] [place] [phone] Notes/Report: Hemoglobin A1c % 7.3 <6.0 % [...] average glucose, using the formula of the Y7O-Coepqpy Average Glucose study (ADAG), Diabetes Care, Vol.31,#8, Jun. 2007 Blood Urea Nitrogen Reviewed date:03/04/2025 06:45:15 PM Interpretation: Performing Lab:[facility], [address] [place] [phone] Notes/Report: Blood Urea Nitrogen 23 9-16 mg/dL Creatinine Reviewed date:03/04/2025 06:38:28 PM Interpretation: Performing Lab:[facility], [address] [place] [phone] Notes/Report: Creatinine 0.82 0.5-1.4 mg/dL Estimated Glomerular Filt Rate > 60 Chronic Kidney Disease: Estimated GFR < 60 mL/min/1.73m2 Severe Kidney Disease: Estimated GFR < 15 mL/min/1.73m2 Hold Gold Reviewed date:02/23/2025 12:22:03 PM Interpretation: Performing Lab:[facility], [address] [place] [phone] Notes/Report: Hold Gold See Note Specimen held untested for 24 hours; Call to request Chemistry testing. Comprehensive Met. Panel (No t yet reviewed by provider) Interpretation: Performing Lab:[address] [phone] Notes/Report: Sodium 139 135-145 mmol/L Potassium 4.0 3.3-5.1 mmol/L Chloride 105 96-108 mmol/L Carbon Dioxide 27 22-29 mmol/L Anion Gap 11 12-20 Blood Urea Nitrogen 18 9-16 mg/dL Creatinine 0.83 0.5-1.4 mg/dL Estimated Glomerular Filt Rate > 60 Chronic Kidney Disease: Estimated GFR < 60 mL/min/1.73m2 Severe Kidney Disease: Estimated GFR < 15 mL/min/1.73m2 Glucose Random 139 60-115 mg/dL Calcium 9.2 8.4-10.2 mg/dL Bilirubin Total 0.4 0.0-1.0 mg/dL Aspartate Amino Transferase 33 5-37 U/L Alanine Aminotransferase 25 0-40 U/L Total Protein 6.9 6.5-8.0 g/dL Albumin Level 4.2 3.5-5.0 g/dL Alkaline Phosphatase 76 39-117 U/L Prostate Specific Antigen Reviewed date:08/26/2025 12:34:57 PM Interpretation: Performing Lab:[address] [phone] Notes/Report: Prostate Specific Antigen 2.68 <0.05-4.0 ng/mL PSA methodology: Zeussnity i Chemiluminescent Microparticle Immunoassay (CMIA) Reason For Referral Reason Hip pain right [...] 2014, Jenny Abad 03/04/2025 02:02:41 PM >info faxedJenniffer Annette 03/05/2025 01:37:26 PM > patient called with info and mailed Referral Priority Routine Referral Appointment Date 05/31/2025 Medications Medication SIG (Take, Route, Frequency, Duration) Notes Start Date End Date Status metFORMIN HCl 500 MG TAKE 2 TABLET BY MO UTH TWICE DAILY WITH A MEALS FOR 90 DAYS for 90 Active Atorvastatin Calcium 20 MG TAKE 1 TABLET BY MOUTH EVERY DAY for 90 Active Ibuprofen 800 MG TAKE 1 TABLET BY CHEL TH THREE TIMES A DAY WITH FOOD OR MILK NEEDED FOR 30 DAYS for 30 Active Immunizations Vaccine Route Administration Date Status Comme nts Fluarix Quadrivalent Unknown 11/20/[address] Alvares PPSV23 (Pnemovax) IM Intramuscular 07/06/2019 Administered Fluarix Quadrivalent IM Intramuscular 01/18/2020 Administe red Prevnar 13 IM Intramuscular 07/11/2020 Administered Fluarix [...] SARS-COV-2 Moderna 2022 Unknown 08/31/2024 Administered [facility] Influenza High Dose IM Intramuscular 08/26/2025 Administer ed Social History Tobacco Use: Social History Observation [...] Status W/U Status Risk Notes Problem Balanitis (97873459) Balanitis (N48.1) Active c onfirmed Problem 283033327 Irritable bowel syndrome with diarrhea (K58.0) Active confirmed Problem 268922422 Tubular adenoma (D36.9) Active confirmed Problem 3358906980608 Tinnitus, bilate ral (H93.13) Active confirmed Problem Sciatica (63910937) Acute right- sided low back pain with right-sided sciatica (M54.41) Active confirmed Problem 02309723 Sciatica of righ t side (M54.31) Active confirmed Problem Pure hypercholesterolemia (929320529) Pure hypercholesterolemia (E78.00) Active confirmed Problem 17925422 Hypercholesterol emia (E78.00) Active confirmed Problem 632035316 Type 2 diabetes mellitus without complication, without long-term current use of insulin (E11.9) Active confirmed Problem 42409058 Lumbar degenerat zenaida disc disease (M51.36) Active [...] Location Date Provider Diagnosis Tad Guerra MD [address] [place] [address] [phone] 02/23/2025 Tad Guerra Type 2 diabetes toni itus without complication, without long-term current use of insulin E11.9 and Hypercholesterolemia E78.00 Tad Guerra MD [address] [place] [phone] 08/26/2025 Tad Guerra Blood tests for rout ine general physical examination Z00.00 ; Type 2 diabetes mellitus without complication, without long-term current use of insulin E11.9 ; Hypercholesterolemia E78.00 and Encounter for administration of vaccine Z23 Tad Guerra MD [address] [place] [phone] 08/31/2024 Tad Guerra Hip pain, right M25. 551 ; Annual physical exam Z00.00 ; Murmur, cardiac R01.1 ; Sciatica of right side M54.31 ; Type 2 diabetes mellitus without complication, without long-term current use of insulin E11.9 and Hypercholesterolemia E78.00 Tad Guerra MD [address] [place] [phone] 03/02/2025 Tad Guerra Type 2 diabetes toni itus without complication, without long-term current use of insulin E11.9 ; Hypercholesterolemia E78.00 ; Tubular adenoma D36.9 and Acute right-sided low back pain with right-sided sciatica M54.41 Tad Guerra MD [address] [place] [phone] 07/13/2025 Tad Guerra Hypercholesterolemia E78.00 Assessments Encounter Date Diagnosis (ICD Code) Assessment Notes Treatment Notes Treatment Clinical Notes Section Notes 02/23/2025 Type 2 diabetes mellitus without complication, without long-term current use of insulin (ICD-10 - E11.9) 08/26/[address] ine general physical examination (ICD-10 - Z00.00) 08/26/2025 Type 2 diabetes mellitus without complication, without long-term current use of insulin (ICD-10 - E11.9) 08/31/2024 Hip pain, right (ICD -10 - M25.551) [place] [facility] [place] 08/31/2024 Annual physical exam (ICD-10 - Z00.00) labs reviewed nd discussed with patient 03/02/2025 Type 2 diabetes mellitus without complication, without long-term current use of insulin (ICD-10 - E11.9) stable, will contnue current regiment 07/13/2025 Hypercholesterolemia (ICD-10 - E78.00) 02/23/2025 Hypercholesterolemia (ICD-10 - E78.00) 08/26/2025 Hypercholesterolemia (ICD-10 - E78.00) 08/31/2024 Murmur, cardiac (ICD -10 - R01.1) [place] [facility] [place] 03/02/2025 Hypercholesterolemia (ICD-10 - E78.00) doing well on meds, will continue current regiment 08/26/2025 Encounter for administration of vaccine (ICD-10 - Z23) 08/31/2024 Sciatica of right si de (ICD-10 - M54.31) seems most likey that the hip pain is from back 03/02/2025 Tubular adenoma (ICD -10 - D36.9) schedule colonoscopy with dr joy 08/31/2024 Type 2 diabetes mellitus without complication, without long-term current use of insulin (ICD-10 - E11.9) stable, will continue current regiment 03/02/2025 Acute right-sided lo w back pain with right-sided sciatica (ICD-10 - M54.41) has resolved 08/31/2024 Hypercholesterolemia (ICD-10 - E78.00) stable, will continue current regiment Plan Of Treatment Pending Test Test Name Order Date ECHO 08/31/2024 Complete Blood Count Auto Diff 5 Comprehensive Met. Panel 08/26/2025 Comprehensive [place]. Panel Fast PSA,Total (Free>4and<10) 08/26/2025 UA ClnCatch+Micro w/rflx Cult 08/26/2025 Next Appt Details Provider Name:Tad guzman, 09/09/2025 01:00:00 PM, [address] [place] [address], [place] [address], [place], [place], [phone], Insurance Providers Payer Name Payer Address Payer Phone Subscriber Number Group Number Insured Name Patient Relationship to Insured Coverage Start Date Coverage End Date [employer] [address] PRIYA TELLO [id number] [facility] [place] [id number] RAH LE Self - patient is the insured [employer] [address] [place] [address] [id number] RAH LE Self - patient is the insured Medical (General) History Medical History History ICD Code diabetes since age 43 colonoscopy 2015. due in 10 years
== END 2025-08-26 10:51 | disposition home or self-care (01) ==
LOC: HO.LNP 10:50
PROVIDERS: Visit Provider Internal Medicine
DX: Z00.00 Encounter for general adult medical examination without abnormal findings (principal); E78.00 Pure hypercholesterolemia, unspecified; E11.9 Type 2 diabetes mellitus without complications; Z12.5 Encounter for screening for malignant neoplasm of prostate
CPT/HCPCS: 80053; 80061; 81001; 82043; 82570; 83036; 84153; 85025

== ENCOUNTER 2025-09-22 20:35 | Emergency (ER) | payer MEDICARE, SELFPAY ==
--- OUTSIDE RECORDS SUMMARY | 2024-05-14 06:00 | XMS_ITS ---
Author Organization Tad Guerra MD Address [address] [place], [place] [id number] Care Team Providers Care Analysis Analyst Name Role Phone Tad Guerra Primary Care Provider Allergies No Known Allergies Results Component Value Reference Range Notes Hemoglobin A1c Reviewed date:05/14/2024 10:06:13 AM Interpretation: Performing Lab: Notes/Report: Hemoglobin A1c 7.6 Glucose, finger stick Reviewed date:05/14/2024 09:59:24 AM Interpretation: Performing Lab: Notes/Report: Value 199 REASON FOR VISIT 6 MO F/U Medications Medication SIG (Take, Route, Frequency, Duration) Notes Start Date End Date Status traMADol HCl 50 MG 1 tablet as needed Orally three times a day as needed for 14 days 08/09/2022 Not-Taking Cyclobenzaprine HCl 5 MG as directed Ora lly one tab twice a day for 10 days 05/31/2022 Not-Taking Atorvastatin Calcium 20 MG TAKE 1 TABLET BY MOUTH EVERY DAY Active Ibuprofen 800 MG TAKE 1 TABLET BY THREE TIMES A DAY WITH FOOD OR MILK NEEDED FOR 30 DAYS for 30 Active Ciclopirox 0.77 % 1 application Externally twice a day for 10 days 06/21/2023 Not-Taking Clotrimazole-Betamethasone 1-0.05 % APPLY DAILY TO SKIN TO AFFECTED AREA TWICE A DAY FOR 7 DAYS Externally Twice a day for 7 days Not-Taking Hydrocortisone Sky-Pramoxine 2.5-1 % 1 application Externally Three times a day for 30 days 09/04/2022 Not-Taking metFORMIN HCl 500 MG take 2 tablet by mo uth twice daily with a meal for 90 days Orally twice a day for 90 days Active Problems Problem Type SNOMED Code ICD Code Onset Dates Problem Status W/U Status Risk Notes Problem [id number] Lumbar degenerative disc disease (M51.36) Active confirmed Vital Signs Blood pressure systolic 140 mm Hg 05/14/20 24 Blood pressure diastolic 82 mm Hg 024 Height 64 in 05/14/2024 Weight 143 lbs 05/14/2024 BMI 24.54 kg/m2 05/14/2024 weight is down 5 pounds [facility] e 11-12-23 Encounters Encounter Location Date Provider Diagnosis Tad Guerra MD [address] [place] [address] Drive [address] [place], [place] [phone] 05/14/2024 Tad Guerra Type 2 diabetes mellitus without complication, without long-term current use of insulin E11.9 and Lumbar degenerative disc disease M51.36 Assessments Encounter Date Diagnosis (ICD Code) Assessment Notes Treatment Notes Treatment Clinical Notes Section Notes 05/14/2024 Type 2 diabetes mellitus without complication, without long-term current use of insulin (ICD-10 - E11.9) 05/14/2024 Lumbar degenerative disc disease (ICD-10 - M51.36) need notes and mri results from [facility]/ PATIENT HAS NOT BEEN TO [facility] SINCE 2019. HE WAS SEEN AT [facility]ICE [facility] AND THEY WILL SEND NOTES AND MRI RESULTS . THEIR PHONE NUMBER IS [phone] [facility] Plan Of Treatment Medication Medication Name Sig Start Date Stop Date Notes metFORMIN HCl 500 MG take 2 tablet by mo uth twice daily with a meal for 90 days Orally twice a day for 90 days Treatment Notes Assessment Notes Lumbar degenerative disc disease need no thelma and mri results from [facility]/ PATIENT HAS NOT BEEN TO [facility] SINCE 2019. HE WAS SEEN AT [facility]ICE [facility] AND THEY WILL SEND NOTES AND MRI RESULTS . THEIR PHONE NUMBER IS [phone] [facility] Next Appt Details Provider Name:Tad guzman, 03/03/2026 07:30:00 AM, [address], [address], [place], [place], [phone], Provider Name:Tad guzman, 03/10/2026 10:00:00 AM, [address], [address], [place], [place], [phone], Provider Name:Tad Hogan ier, 09/06/2026 07:45:00 AM, [address], [address], [place], [place], [phone], Provider Name:Tad Hogan ier, 09/12/2026 01:00:00 PM, [address], [address], [place], [place], [phone], Progress Notes * RAH LEDOB:1955 (68 yo M)Acc No.[id number]:05/14/2024 Progress Notes Patient: RAH ANTONIO Provider: Jens Guerra MD :1955 A ge:68 Y S ex:Male Date:05/14/2024 Address:[address] [place], [place] [id number] Subjective: * Chief Complaints: * 6 MO F/U * HPI: S ymptom(s): patient is a 68 yo male here for 6 month follow up visit, had been very sick. tried to get cortisone shot in spine. hip was injected too. still working out. * ROS: G eneral/Constitutional: Denies C hills. D enies F atigue. D enies F ever. D enies H eadache. E NT: Patient denies d ecreased sense of smell , any loss of taste , sore throat. D enies S ore throat. R espiratory: Denies C ough. D enies S hortness of breath at rest. D enies S hortness of breath with exertion. G astrointestinal: Denies D iarrhea. D enies N ausea. M usculoskeletal: Patient denies m uscle aches. P eripheral Vascular: Patient denies r ed and blue toes. * Medical History: * Surgical History: * Hospitalization/Major Diagno stic Procedure: * Medications: T akingAtorvastatin Calcium 20 MG Tablet TAKE 1 TABLET BY MOUTH EVERY DAY Ibuprofen 800 MG Tablet TAKE 1 TABLET BY MOUTH THREE TIMES A DAY WITH FOOD OR MILK NEEDED FOR 30 DAYS metFORMIN HCl 500 MG Tablet TAKE 1 TABLET BY MOUTH TWICE DAILY WITH A MEAL FOR 90 DAYS Taking Atorvastatin Calcium 20 MG Tablet TAKE 1 TABLET BY MOUTH EVERY DAY Taking Ibuprofen 800 MG Tablet TAKE 1 TABLET BY MOUTH THREE TIMES A DAY WITH FOOD OR MILK NEEDED FOR 30 DAYS Taking metFORMIN HCl 500 MG Tablet TAKE 1 TABLET BY MOUTH TWICE DAILY WITH A MEAL FOR 90 DAYS Not-Taking/PRNCiclopirox 0.77 % Gel 1 application Externally twice a dayClotrimazole-Betamethasone 1-0.05 % Cream APPLY DAILY TO SKIN TO AFFECTED AREA TWICE A DAY FOR 7 DAYS Externally Twice a dayHydrocortisone Sky-Pramoxine 2.5-1 % Cream 1 application Externally Three times a daytraMADol HCl 50 MG Tablet 1 tablet as needed Orally three times a day as neededCyclobenzaprine HCl 5 MG Tablet as directed Orally one tab twice a dayMedication List reviewed and reconciled with the patientNot-Taking/PRN Ciclopirox 0.77 % Gel 1 application Externally twice a dayNot-Taking/PRN Clotrimazole-Betamethasone 1-0.05 % Cream APPLY DAILY TO SKIN TO AFFECTED AREA TWICE A DAY FOR 7 DAYS Externally Twice a dayNot-Taking/PRN Hydrocortisone Sky-Pramoxine 2.5-1 % Cream 1 application Externally Three times a dayNot-Taking/PRN traMADol HCl 50 MG Tablet 1 tablet as needed Orally three times a day as neededNot-Taking/PRN Cyclobenzaprine HCl 5 MG Tablet as directed Orally one tab twice a dayMedication List reviewed and reconciled with the patient * Allergies: N .K.D.A.yes[Allergies Verified] Objective: * Vitals: H t: 64, Wt:143, BMI:24.54, BP:140/82, Repeat BP:110/70 weight is down 5 pounds since 11-12-23. * Examination: G eneral Examination: GENERAL APPEARANCE: alert, well hydrated, in no distress . HEAD: normocephalic. SKIN: good turgor. HEART: regular rate and rhythm, no murmurs, rubs, gallops. LUNGS: no wheezes, rales, rhonchi, good air movement, clear to auscultation bilaterally. Assessment: * Assessment: 1. T ype 2 diabetes mellitus without complication, without long-term current use of insulin - E11.9 (Primary) 2 . L umbar degenerative disc disease - M51.36 Plan: * Treatment: Value Reference Range H emoglobin A1c 7.6 * Kinza Ramirez 4 10:06:12 AM EDT > ?LAB: Glucose, finger stick* Value Reference Range V alue 199 * Kinza Ramirez 4 09:59:22 AM EDT > 2.?Lumbar degenerative disc disease? Notes: need notes and mri results from [facility]/ PATIENT HAS NOT BEEN TO [facility] SINCE 2019. HE WAS SEEN AT [facility] AND THEY WILL SEND NOTES AND MRI RESULTS . THEIR PHONE NUMBER IS [phone] [facility].?? * Procedure Codes: 8 2947 ASSAY, GLUCOSE, BLOOD QUANT, Modifiers: QW 82352 GLYCATED HEMOGLOBIN TEST, Modifiers: QW * * Sign off status: Completed true * Provider: Jens Guerra MD Date: 0 05/14/2024 Generated for Arlin bean/Aditya/Daviditting on: 1 09:09 PM EDT History and Physical Notes * HPI (History of Present Illness) Category Sub-Category Detail Notes Category Not es Symptom(s) patient is a 68 yo male here for 6 month follow up visit, had been very sick. tried to get cortisone shot in spine. hip was injected too. still working out Examination Category Sub-Category Detail Notes Category Not es General Examination GENERAL APPEARANCE: alert, w ell hydrated, in no distress HEAD: normocephalic HEART: regular rate and rhy thm, no murmurs, rubs, gallops LUNGS: no wheezes, rales, r honchi, good air movement, clear to auscultation bilaterally SKIN: good turgor
--- OUTSIDE RECORDS SUMMARY | 2024-08-11 04:15 | XMS_ITS ---
Author Organization Tad Guerra MD Address [address] [place], [place] [id number] Care Team Providers Care Supervisor Train Operations Name Role Phone Tad Guerra Primary Care Provider [phone] Results Component Value Reference Range Notes Complete Blood Count Auto Di ff Reviewed date:08/11/2024 12:40:31 PM Interpretation: Performing Lab:[facility], [address] [place] [phone] Notes/Report: White Blood Count 8.9 4.8-10.8 X10*3/uL Red Blood Count 4.54 4.60-5.80 X10*6/uL Hemoglobin 13.6 14.0-18.0 g/dl Hematocrit 41.0 42.0-52.0 % Mean Corpuscular Volume 90.3 80.0-98.0 fL Mean Corpuscular Hemoglobin 30.0 27.0-33.0 pg Mean Corpuscular HGB Conc 33.2 31.0-36.0 g/dl Red Cell Distribution Width 13.1 11.0-16.0 % Platelet Count 394 160-400 X10*3/uL Mean Platelet Volume 8.9 9.4-12.4 fL Neutrophils Percent Auto 54.0 45-73 % Imm Gran Pct Auto 0.3 0.0-0.4 % Lymphocytes Percent Auto 30.7 20-40 % Monocytes Percent Auto 9.4 2-11 % Eosinophils Percent Auto 4.2 0-4 % Basophils Percent Auto 1.4 0-2 % NRBC Pct Auto 0.0 0.0-0.2 /100WBC Neutrophils Absolute Auto 4.8 2.0-8.3 x10*3/u L Imm Gran Abs Auto 0.03 0.00-0.03 X10*3/uL Lymphocytes Absolute Auto 2.7 1.2-4.9 X10*3/u L Monocytes Absolute Auto 0.8 0.1-1.2 X10*3/uL Eosinophils Absolute Auto 0.4 0.0-0.4 X10*3/u L Basophils Absolute Auto 0.1 0.0-0.2 X10*3/uL NRBC Abs Auto 0.000 0.0-0.012 X10*3/uL Comprehensive [place]. Panel Fa st Reviewed date:08/11/2024 12:41:10 PM Interpretation: Performing Lab:[address] [phone] Notes/Report: Sodium 139 135-145 mmol/L Potassium 4.1 3.3-5.1 mmol/L Chloride 106 96-108 mmol/L Carbon Dioxide 27 22-29 mmol/L Anion Gap 10 12-20 Blood Urea Nitrogen 20 9-16 mg/dL Creatinine 0.85 0.5-1.4 mg/dL Estimated Glomerular Filt Rate > 60 NOTE: For -[place] individuals, multiply the result by 1.210. Chronic Kidney Disease: Estimated GFR < 60 mL/min/1.73m2 Severe Kidney Disease: Estimated GFR < 15 mL/min/1.73m2 Glucose Fasting 138 60-99 mg/dL A fasting glucose of 126 mg/dl or greater on more than one occasion is considered diagnostic of diabetes. Calcium 9.5 8.4-10.2 mg/dL Bilirubin Total 0.1 0.0-1.0 mg/dL Aspartate Amino Transferase 17 5-37 U/L Alanine Aminotransferase 14 0-40 U/L Total Protein 6.8 6.5-8.0 g/dL Albumin Level 4.0 3.5-5.0 g/dL Alkaline Phosphatase 71 39-117 U/L Lipid Panel Reviewed date:08/11/2024 12:40:10 PM Interpretation: Performing Lab:[facility], [address] [place] [phone] Notes/Report: Triglycerides 50 <150 mg/dL Desirable Triglyceride: less than 150 mg/dL Borderline High Triglyceride 150-199 mg/dL High Triglyceride: 200-499 mg/dL Very High Triglyceride: greater than or equal to 5OO mg/dL Cholesterol 157 <200 mg/dL Desirable Cholesterol: less than 200 mg/dL Borderline High Cholesterol: 200-239 mg/dL High Cholesterol: greater than 239 mg/dL LDL Cholesterol Calculated 80 <100 mg/dL Desirable LDL: less than 100 mg/dL Near Optimal/Above Optimal LDL: 110-129 mg/dL Borderline High LDL: 130-159 mg/dL High LDL: 160-189 mg/dL Very High LDL: greater than or equal to 190 mg/dL HDL Cholesterol 67 >40 mg/dL Desirable HDL: greater than 40 mg/dL Note: This HDL assay may give artificially low results in patients with liver disease. PSA,Total (Free>4and<10) Reviewed date:08/11/2024 12:35:00 PM Interpretation: Performing Lab:[facility], [address] [place] [phone] Notes/Report: PSA,Total (Free>4and<10) 2.97 0.00-4.00 ng/mL A Free PSA was not performed: The percentage of Free PSA can be used to enhance the differentiation of prostate cancer from benign prostatic disease in subjects whose PSA levels are between 4.0 and 10.0 ng/mL. For subjects whose PSA levels are below 4.0 or above 10.0 ng/mL, the risk of prostate cancer is determined on the basis of the PSA alone. Therefore the % Free PSA is recommended only for those subjects whose PSA levels are between 4.0 and 10.0 ng/mL. PSA methodology: Blunt Alinity i Chemiluminescent Microparticle Immunoassay (CMIA) Microalbumin, Random Reviewed date:08/11/2024 12:39:53 PM Interpretation: Performing Lab:[facility], [address] [place] [phone] Notes/Report: Creatinine Urine 105.12 Microalbumin Urine 8.0 Microalbum/Creatinine Ratio Ur 7.6 <30 ug/mg cr Albumin/Creatinine Ratio Reference Ranges: Normal: < 30 ug/mg creatinine Microalbuminuria: 30 - 300 ug/mg creatinine Clinical Albuminuria: > 300 ug/mg creatinine Hemoglobin A1c Reviewed date:08/11/2024 12:38:19 PM Interpretation: Performing Lab:[facility], [address] [place] [phone] Notes/Report: Hemoglobin A1c % 6.9 <6.0 % Hemoglobin A1C Reference Range Adults: 4.8 - 6.0 % Non diabetic: < 6.0 % Goal: < 7.0 % Additional Action Suggested: > 8.0 % Note: Hemoglobin A1c results are invalid for patients with abnormal amounts of HbF. Blood transfusions may impact the HbA1c concentration in the patient sample. Estimated Average Glucose 151 eAG = Estimated average glucose which is %A1C expressed as average glucose, using the formula of the P6T-Intvyai Average Glucose study (ADAG), Diabetes Care, Vol.31,#8, Jun. 2007 UA ClnCatch+Micro w/rflx Cul t Reviewed date:08/11/2024 12:45:03 PM Interpretation: Performing Lab:[facility], [address] [place] [phone] Notes/Report: Urine, Clean Catch Color Urine Yellow Appearance Urine Clear PH 5.5 5.0-9.0 Glucose Urine UA Negative Negative mg/dL Urine Blood Negative Negative Specific [place] - Urine 1.025 1.005-1.025 Urine Protein Negative Neg-Trace mg/dL Urine Ketones Negative Negative mg/dL Nitrite Urine Negative Negative Leukocyte Esterase Urine Negative Negative RBC Urine 0-2 0-2 /HPF WBC Urine 0-5 0-5 /HPF Squamous Epithelial Cell Urine 0-2 0-2 /HPF Bacteria Urine None Seen None Seen Hyaline Casts Urine 0-2 0-2 /LPF REASON FOR VISIT yearly fasting labs Encounters Encounter Location Date Provider Diagnosis Tad Guerra MD [address] [place] [address] [address] [place], [place] [phone] 08/11/2024 Tad Guerra Blood tests for routine general physical examination Z00.00 and Type 2 diabetes mellitus without complication, without long-term current use of insulin E11.9 Assessments Encounter Date Diagnosis (ICD Code) Assessment Notes Treatment Notes Treatment Clinical Notes Section Notes 08/11/2024 Blood tests for routine general physical examination (ICD-10 - Z00.00) 08/11/2024 Type 2 diabetes mellitus without complication, without long-term current use of insulin (ICD-10 - E11.9) Plan Of Treatment Next Appt Details Provider Name:Tda Hogan ier, 03/03/2026 07:30:00 AM, [address], Suite [facility], [place], [phone], Provider Name:Tad Hogan ier, 03/10/2026 10:00:00 AM, [address], Suite [facility], [place], [phone], Provider Name:Tad Hogan ier, 09/06/2026 07:45:00 AM, [address], Suite [facility], [place], [phone], Provider Name:Tad Hogan ier, 09/12/2026 01:00:00 PM, [address], Suite [facility], [place], [phone], Progress Notes * REY RAHDOB:1955 (69 yo M)Acc No.[id number]:08/11/2024 Progress Note Patient: RAH ANTONIO Provider: Jens Guerra MD :1955 A ge:68 Y S ex:Male Date:08/11/2024 Address:[address] [place], [place] [phone] Subjective: * Chief Complaints: * 1 . Yearly fasting labs. * Medical History: Objective: * Vitals: Assessment: * Assessment: 1. B lood tests for routine general physical examination - Z00.00 (Primary) 2 .?Type 2 diabetes mellitus without complication, without long-term current use of insulin - E11.9 Plan: * Treatment: 2. T ype 2 diabetes mellitus without complication, without long-term current use of insulin L AB: Complete Blood Count Auto Diff (Collection Date & Time - 08/11/2024 08:15 AM) L AB: Comprehensive [place]. Panel Fast (Collection Date & Time - 08/11/2024 08:15 AM) L AB: Lipid Panel (Collection Date & Time - 08/11/2024 08:15 AM) L AB: PSA,Total (Free>4and<10) (Collection Date & Time - 08/11/2024 08:15 AM) L AB: Microalbumin, Random (Collection Date & Time - 08/11/2024 08:15 AM) L AB: Hemoglobin A1c (Collection Date & Time - 08/11/2024 08:15 AM) L AB: UA ClnCatch+Micro w/rflx Cult (Collection Date & Time - 08/11/2024 08:15 AM) * Procedure Codes: 3 6415 VENIPUNCT, ROUTINE* * * The named appointment provid er may or may not be the originator of this progress note, and it is not deemed complete until electronically signed by the appointment provider. Sign off status: Pending * Provider: Jens Guerra MD Date: 0 08/11/2024 Generated for Arlin bean/Aditya/Rupa on: 1 09:10 PM EDT
--- OUTSIDE RECORDS SUMMARY | 2024-08-18 06:30 | XMS_ITS ---
Author Organization Tad Guerra MD Address [address] [place], [place] [phone] Care Team Providers Care Label Drier Name Role Phone Tad Guerra Primary Care [...] HCl 500 MG take 2 tablet by [facility] twice daily with a meal for 90 days Orally twice a day for 90 days Active Ibuprofen 800 MG [facility] WITH FOOD OR MILK NEEDED FOR 30 DAYS for 30 Active Vital Signs Height 64 in 08/18/2024 Weight 140 lbs 08/18/2024 BMI 24.03 kg/m2 08/18/2024 weight at home is 140 BP not taken at home Encounters Encounter Location Date Provider Diagnosis Tad Guerra MD [address] [place] [phone] 08/18/2024 Tad Guerra COVID-19 U07.1 Assessments Encounter [...] Details Provider Name:Tad guzman, 03/03/2026 07:30:00 AM, [address] [place] [address], [phone], Provider Name:Tad guzman, 03/10/2026 10:00:00 AM, [address] [place] [address], [phone], Provider Name:Tad guzman, 09/06/2026 07:45:00 AM, [address] [place] [address], [phone], Provider Name:Tad guzman, 09/12/2026 01:00:00 PM, [address] [place] [address], [phone], Progress Notes * VIRAL LE:1955 (68 yo M)Acc No.[id number]:08/18/2024 Patient: RAH ANTONIO Provider: Jens Guerra MD :1955 A ge:68 Y S ex:Male Date:08/18/2024 Address:[address] [place] [address] Subjective: * Chief Complaints: * C ovidC/o [...] 08/18/2024 Generated for Arlin bean/Aditya/eTransmitting on: 1 09:09 PM EDT History and Physical Notes * HPI (History of Present Illness) Category Sub-Category Detail Notes Category Not es Symptom(s) Telehealth Location of [facility] rendering services:: [address], [address] [...] SSN, Insurance information Telehealth method:: Telephone only. Edie ent not visible to care provider. Consent:: Patient verbally c onsented to treatment, Patient verbally consented to billing insurance company, Patient informed of any privacy concerns related to method of visit Total time spend talking with patient (m inutes): 21
--- OUTSIDE RECORDS SUMMARY | 2024-08-31 09:00 | XMS_ITS ---
Author Organization Tad Guerra MD Address [address] [place], [place] [id number] Care Team Providers Care Chemistry Manager Name Role Phone Tad Guerra Primary Care Provider Allergies No Known Allergies Reason For Referral Reason Hip pain right Diagnosis 1 Hip pain, right (M25 .551) Referral Organization Tad Guerra MD Referring Provider First Name Tad Referring Provider Last Name Charlie Referring Provider Speciality Internal M edicine Referred Provider Tamir Seymour Referred Provider Specialty Orthopedic S urgery General Notes Jenny Abad 12:53:16 PM EDT > info faxed, Jenny Abad 09/11/2024 12:50:09 PM > info mailed to patient Referral Priority Routine Referral Appointment Date 09/28/2024 REASON FOR VISIT annual Medications Medication SIG (Take, Route, Frequency, Duration) Notes Start Date End Date Status Cyclobenzaprine HCl 5 MG as directed Ora lly one tab twice a day for 10 days 05/31/2022 Not-Taking Ibuprofen 800 MG TAKE 1 TABLET BY CHEL TH THREE TIMES A DAY WITH FOOD OR MILK NEEDED FOR 30 DAYS for 30 Active metFORMIN HCl 500 MG take 2 tablet by mo uth twice daily with a meal for 90 days Orally twice a day for 90 days Active Hydrocortisone Sky-Pramoxine 2.5-1 % 1 application Externally Three times a day for 30 days 09/04/2022 Not-Taking traMADol HCl 50 MG 1 tablet as needed Orally three times a day as needed for 14 days 08/09/2022 Not-Taking Atorvastatin Calcium 20 MG TAKE 1 TABLET BY MOUTH EVERY DAY for 90 Active Ciclopirox 0.77 % 1 application Externally twice a day for 10 days 06/21/2023 Not-Taking Clotrimazole-Betamethasone 1-0.05 % APPLY DAILY TO SKIN TO AFFECTED AREA TWICE A DAY FOR 7 DAYS Externally Twice a day for 7 days Not-Taking Social History Tobacco Use: Social History Observation Description Date Details (start date - stop date) Former Smoker NA - NA Tobacco Use/Smoking Question Answer Notes Patient is a former smoker How long has it been since y ou last smoked? > 10 years Additional Findings: Tobacco Non-User Fo rmer smoker, currently using no form of tobacco Alcohol Screen Question Answer Notes Did you have a drink containing alcohol in the p ast year? No Points 0 Interpretation Negative Vital Signs Blood pressure systolic 114 mm Hg 08/31/20 24 Blood pressure diastolic 60 mm Hg 024 Height 64 in 08/31/2024 Weight 138 lbs 08/31/2024 BMI 23.69 kg/m2 08/31/2024 weight is down 2 pounds [facility] e 9- Encounters Encounter Location Date Provider Diagnosis Tad Guerra MD [address] [facility] [address] [place], [place] [phone] 08/31/2024 Tad Guerra Hip pain, right M25. 551 ; Annual physical exam Z00.00 ; Murmur, cardiac R01.1 ; Sciatica of right side M54.31 ; Type 2 diabetes mellitus without complication, without long-term current use of insulin E11.9 and Hypercholesterolemia E78.00 Assessments Encounter Date Diagnosis (ICD Code) Assessment Notes Treatment Notes Treatment Clinical Notes Section Notes 08/31/2024 Hip pain, right (ICD -10 - M25.551) referral [place] [facility] [place] 08/31/2024 Annual physical exam (ICD-10 - Z00.00) labs reviewed nd discussed with patient 08/31/2024 Murmur, cardiac (ICD -10 - R01.1) order [place] to [facility] Patient Reg 08/31/2024 Sciatica of right si de (ICD-10 - M54.31) seems most likey that the hip pain is from back 08/31/2024 Type 2 diabetes toni itus without complication, without long-term current use of insulin (ICD-10 - E11.9) stable, will continue current regiment 08/31/2024 Hypercholesterolemia (ICD-10 - E78.00) stable, will continue current regiment Plan Of Treatment Treatment Notes Assessment Notes Hip pain, right referral to [facility] [place] Annual physical exam labs reviewed nd di scussed with patient Murmur, cardiac order faxed to [facility] P atient Reg Sciatica of right side seems most likey that the hip pain is from back Type 2 diabetes mellitus wit hout complication, without long-term current use of insulin stable, will continue current regiment Hypercholesterolemia stable, will contin ue current regiment Pending Test Test Name Order Date ECHO 08/31/2024 Referrals Referral Date Details 08/31/2024 08/31/2024, Hip pain right , Tamir Seymour Next Appt Details Follow Up: 6 Months, Reason: dm Provider Name:Tad guzman, 03/03/2026 07:30:00 AM, [address] [place] [address], [address], [phone], Provider Name:Tad guzman, 03/10/2026 10:00:00 AM, [address] [place] [address], [address], [phone], Provider Name:Tad guzman, 09/06/2026 07:45:00 AM, [address] [place] [address], [address], [phone], Provider Name:Tad guzman, 09/12/2026 01:00:00 PM, [address] [place] [address], [address], [phone], Progress Notes * NOE LEB:1955 (68 yo M)Acc No.[id number]:08/31/2024 Patient: RAH ANTONIO Provider: Jens Guerra MD :1955 A ge:68 Y S ex:Male Date:08/31/2024 Address:[address] [place], [place] [address] [id number] Subjective: * Chief Complaints: * A nnual * HPI: D epression Screening: PHQ-9 L ittle interest or pleasure in doing things N ot at all, F eeling down, depressed, or hopeless N ot at all, T rouble falling or staying asleep, or sleeping too much N ot at all, F eeling tired or having little energy N ot at all, P oor appetite or overeating N ot at all, F eeling bad about yourself or that you are a failure, or have let yourself or your family down N ot at all, T rouble concentrating on things, such as reading the newspaper or watching television N ot at all, M oving or speaking so slowly that other people could have noticed; or the opposite, being so fidgety or restless that you have been moving around a lot more than usual N ot at all, T houghts that you would be better off or of hurting yourself in some way N ot at all, T otal Score 0 . I nterpretation and Intervention D epression Screening Findings N egative, F ollow-Up for Depression : review of PHQ-9 found negative result, no follow-up needed. C ommunication Needs: Communication Needs D oes the patient have a hearing impairment N o, D oes the patient have a vision impairment? Y es, I f yes, what is the vision impairment? G lasses, D oes the patient have a cognition impairment? N o. S MARISEL Questions: SDOH Questions I n the past year have you been worried about losing housing? N o, I n the past year have you or any family members you live with been unable to get any of the following when it was really needed? Check all that apply: N one. S ymptom(s): Pt is a 68 yo male here for yearly evaluations/ had some pain in buttocks. * ROS: G eneral/Constitutional: Change in appetite d enies. C hills d enies. F ever d enies. O phthalmologic: Blurred vision d enies. D ischarge d enies. P ain d enies. E NT: Decreased hearing d enies. S ore throat d enies.?Swollen glands d enies. E ndocrine: Cold intolerance d enies. E xcessive thirst d enies. H eat intolerance d enies. W eight loss d enies. R espiratory: Cough d enies. S hortness of breath at rest d enies. S hortness of breath with exertion d enies. W heezing d enies. C ardiovascular: Chest pain at rest d enies. C hest pain with exertion?denies. I rregular heartbeat d enies. S hortness of breath d enies. ? G astrointestinal: Abdominal pain d enies. C hange in bowel habits d enies. D iarrhea d enies. N ausea d enies. R ectal bleeding d enies. V omiting d enies . G enitourinary: Blood in urine d enies. D ifficulty urinating d enies. F requent urination d enies. M usculoskeletal: Painful joints d enies. W eakness d enies. ? S kin: Dry skin d enies. I tching d enies. D enies?Mole(s), changes in moles, new moles or any lesions of concern. D enies P hotosensitivity. R david d enies. N eurologic: Dizziness d enies. F ainting d enies. H eadache?denies. * Medical History: * Surgical History: * Hospitalization/Major Diagno stic Procedure: * Family History: F ather: 65 yrs. M other: alive 83 yrs. 3 brother(s) , 2 sister(s) . 1 son(s) , 1 daughter(s) . . Mother- Healthy father Prostate Cancer 1 brother cancer, No pertinent family medical history, Denies mental health/substance abuse family history, Denies mental health/substance abuse family history 1 sister 60 stomach cancer. * Social History: T obacco Use: T obacco Use/Smoking P atient is a f ormer smoker, H ow long has it been since you last smoked? > 10 years, A dditional Findings: Tobacco Non-User F ormer smoker, currently using no form of tobacco. D rugs/Alcohol: A lcohol Screen D id you have a drink containing alcohol in the past year? N o, P oints 0 , I nterpretation N egative. M iscellaneous: n o Caffeine, 1-2 cups per day. Children: yes. Community involvements: yes. Exercise: yes, weights running hiking everyday. Home smoke detector use: yes. Housing: owning. Living with: spouse. Marital status: . Occupation: weeks/months/years, works full-time. Pets: cats: dogs:1 dog. Travel outside of the [place]: yes. * Medications: T akingIbuprofen 800 MG Tablet [...] Verified] Objective: * Vitals: H t: 64, Wt:138, BMI:23.69, BP:114/60 weight is down 2 pounds since 08-18-24. * P ast Orders: L ab:Comprehensive [place]. Panel Fast (Order Date - 08/11/2024) (Collection Date - 08/11/2024) Value Reference Range Sodium 139 135-145 - mmol/L Bilirubin Total 0.1 0.0-1.0 - mg/dL Aspartate Amino Transferase 17 5-37 - U/L Alanine Aminotransferase 14 0-40 - U/L Total Protein 6.8 6.5-8.0 - g/dL Albumin Level 4.0 3.5-5.0 - g/dL Alkaline Phosphatase 71 39-117 - U/L Potassium 4.1 3.3-5.1 - mmol/L Chloride 106 96-108 - mmol/L Carbon Dioxide 27 22-29 - mmol/L Anion Gap 10 L 12-20 - Blood Urea Nitrogen 20 H 9-16 - mg/dL Creatinine 0.85 0.5-1.4 - mg/dL Estimated Glomerular Filt Rate > 60 - Glucose Fasting 138 H 60-99 - mg/dL Calcium 9.5 8.4-10.2 - mg/dL L ab:PSA,Total (Free>4and<10) (Order Date - 08/11/2024) (Collection Date - 08/11/2024) Value Reference Range PSA,Total (Free>4and<10) 2.97 0.00-4.00 - ng/ mL L ab:Complete Blood Count Auto Diff (Order Date - 08/11/2024) (Collection Date - 08/11/2024) Value Reference Range White Blood Count 8.9 4.8-10.8 - X10*3/uL Red Blood Count 4.54 L 4.60-5.80 - X10*6/uL Hemoglobin 13.6 L 14.0-18.0 - g/dl Hematocrit 41.0 L 42.0-52.0 - % Mean Corpuscular Volume 90.3 80.0-98.0 - fL Mean Corpuscular Hemoglobin 30.0 27.0-33.0 - pg Mean Corpuscular HGB Conc 33.2 31.0-36.0 - g/ dl Red Cell Distribution Width 13.1 11.0-16.0 - % Platelet Count 394 160-400 - X10*3/uL Mean Platelet Volume 8.9 L 9.4-12.4 - fL Neutrophils Percent Auto 54.0 45-73 - % Imm Gran Pct Auto 0.3 0.0-0.4 - % Lymphocytes Percent Auto 30.7 20-40 - % Monocytes Percent Auto 9.4 2-11 - % Eosinophils Percent Auto 4.2 H 0-4 - % Basophils Percent Auto 1.4 0-2 - % NRBC Pct Auto 0.0 0.0-0.2 - /100WBC Neutrophils Absolute Auto 4.8 2.0-8.3 - x10* 3/uL Imm Gran Abs Auto 0.03 0.00-0.03 - X10*3/uL Lymphocytes Absolute Auto 2.7 1.2-4.9 - X10* 3/uL Monocytes Absolute Auto 0.8 0.1-1.2 - X10*3/ uL Eosinophils Absolute Auto 0.4 0.0-0.4 - X10* 3/uL Basophils Absolute Auto 0.1 0.0-0.2 - X10*3/ uL NRBC Abs Auto 0.000 0.0-0.012 - X10*3/uL L ab:Hemoglobin A1c (Order Date - 08/11/2024) (Collection Date - 08/11/2024) Value Reference Range Hemoglobin A1c % 6.9 H <6.0 - % Estimated Average Glucose 151 - mg/dL L ab:Microalbumin, Random (Order Date - 08/11/2024) (Collection Date - 08/11/2024) Value Reference Range Creatinine Urine 105.12 - mg/dL Microalbumin Urine 8.0 - mg/L Microalbum Creatinine Ratio Ur 7.6 <30 - ug/ mg cr L ab:Lipid Panel (Order Date 08/11/2024) (Collection Date - 08/11/2024) Value Reference Range Triglycerides 50 <150 - mg/dL Cholesterol 157 <200 - mg/dL LDL Cholesterol Calculated 80 <100 - mg/dL HDL Cholesterol 67 >40 - mg/dL L ab:UA ClnCatch+Micro w/rflx Cult (Order Date - 08/11/2024) (Collection Date - 08/11/2024) Value Reference Range Color Urine Yellow - Appearance Urine Clear - PH 5.5 5.0-9.0 - Glucose Urine UA Negative Negative - mg/dL Urine Blood Negative Negative - Specific [place] - Urine 1.025 1.005-1.025 - Urine Protein Negative Neg-Trace - mg/dL Urine Ketones Negative Negative - mg/dL Nitrite Urine Negative Negative - Leukocyte Esterase Urine Negative Negative - RBC Urine 0-2 0-2 - /HPF WBC Urine 0-5 0-5 - /HPF Squamous Epithelial Cell Urine 0-2 0-2 - /HP F Bacteria Urine None Seen None Seen - Hyaline Casts Urine 0-2 0-2 - /LPF * Examination: G eneral Examination: GENERAL APPEARANCE: w ell developed, well nourished, in no acute distress. HEAD: n ormocephalic, atraumatic. EYES: p upils equal, round, reactive to light and accommodation, sclera non-icteric. EARS: n ormal. ORAL CAVITY: m ucosa moist. THROAT: c lear. NECK/THYROID: n yumiko supple, full range of motion, no cervical lymphadenopathy, no bruits. SKIN: w arm and dry, no suspicious lesions. HEART: r egular rate and rhythm, S1, S2 normal, 2/6 DAVI at apex. LUNGS: c lear to auscultation bilaterally. ABDOMEN: s oft, nontender, nondistended, bowel sounds present, normal, no organomegaly , no masses palpable. RECTAL EXAM: n ormal tone, no external hemorrhoids, no masses palpable, prostate normal, stool guaiac negative. MALE GENITOURINARY: uncircumcised, no penile lesions or discharge, prostate normal, testes descended bilaterally. EXTREMITIES: n o clubbing, cyanosis, or edema. NEUROLOGIC: n onfocal, motor strength normal upper and lower extremities, sensory exam intact. FOOT EXAM: . Assessment: * Assessment: 1. A nnual physical exam - Z00.00 (Primary) 2 . H ip pain, right - M25.551 3 . M urmur, cardiac - R01.1 4 . S ciatica of right side - M54.31 5 . T ype 2 diabetes mellitus without complication, without long-term current use of insulin - E11.9 6 . H ypercholesterolemia - E78.00 Plan: * Treatment: 2. H ip pain, right Notes: referral to [facility] [place] Referral To:Tamir Seymour Orthopedic Surgery Reason:Hip pain right 3. M urmur, cardiac I maging: ECHO Notes: order faxed to [facility] Patient Reg 4. S ciatica of right side Notes: seems most likey that the hip pain is from back 5. T ype 2 diabetes mellitus without complication, without long-term current use of insulin Notes: stable, will continue current regiment 6. H ypercholesterolemia Notes: stable, will continue current regiment * Procedure Codes: * Preventive Medicine: Diabetes Care Plan: P atient Lifestyle Goals N eeds to maintain diet control.?Treatment Goals A 1C< 7. B arriers N o specific barriers, doing well. S elf-Managment Plan I ncrease light exercise to 3 times a week for 30 minutes. * Follow Up: 6 Months (Reason: dm) * * Sign off status: Completed true * Provider: Jens Guerra MD Date: Generated for Arlin bean/Aditya/eTransmitting on: 09:08 PM EDT History and Physical Notes * HPI (History of Present Illness) Category Sub-Category Detail Notes Category Not es Symptom(s) Pt is a 68 yo male here for yearly evaluations/ had some pain in buttocks. Depression Screening PHQ-9 Little inte rest or pleasure in doing things: Not at all Feeling down, depressed, or hopeless: No t at all Trouble falling or staying asleep, or sl eeping too much: Not at all Feeling tired or having little energy: N ot at all Poor appetite or overeating: Not at all Feeling bad about yourself o r that you are a failure, or have let yourself or your family down: Not at all Trouble concentrating on thi ngs, such as reading the newspaper or watching television: Not at all Moving or speaking so slowly that other people could have noticed; or the opposite, being so fidgety or restless that you have been moving around a lot more than usual: Not at all Thoughts that you would be b werner off or of hurting yourself in some way: Not at all Total Score: 0 Interpretation and Intervention Depression Monica carr Findings: Negative Follow-Up for Depression: : review of PH Q-9 found negative result, no follow-up needed SDOH Questions SDOH Questions In the past year have you been worried about losing housing?: No In the past year have you or any family members you live with been unable to get any of the following when it was really needed? Check all that apply:: None Communication Needs Communication Needs Does the patient have a hearing impairment: No Does the patient have a vision impairmen t?: Yes If yes, what is the vision impairment?: Glasses Does the patient have a cognition impair ment?: No Examination Category Sub-Category Detail Notes Category Not es General Examination GENERAL APPEARANCE: well dev eloped, well nourished, in no acute distress HEAD: normocephalic, atrau matic EYES: pupils equal, round, reactive to light and accommodation, sclera non-icteric EARS: normal THROAT: clear NECK/THYROID: neck supple, full ra nge of motion, no cervical lymphadenopathy, no bruits HEART: regular rate and rhy thm, S1, S2 normal, 2/6 DAVI at apex LUNGS: clear to auscultatio n bilaterally ABDOMEN: soft, nontender, non distended, bowel sounds present, normal, no organomegaly , no masses palpable NEUROLOGIC: nonfocal, motor stre ngth normal upper and lower extremities, sensory exam intact SKIN: warm and dry, no peggy picious lesions EXTREMITIES: no clubbing, cyanosi s, or edema MALE GENITOURINARY: uncircumcised, no pe nile lesions or discharge, prostate normal, testes descended bilaterally RECTAL EXAM: normal tone, no exte rnal hemorrhoids, no masses palpable, prostate normal, stool guaiac negative ORAL CAVITY: mucosa moist FOOT EXAM: Date: 08/31/2024 normal pinprick . normal pulse. normal light touch. Consultation Request Notes Referral Date Referring Provider Referred Provider Not es 08/31/2024 Tad Guerra Noah Hip pain r ight
--- OUTSIDE RECORDS SUMMARY | 2025-02-23 03:30 | XMS_ITS ---
Author Organization Tad Guerra MD Address [address] [place], [place] [phone] Care Team Providers Care Tandem Mill Operator Name Role Phone Tad Guerra Primary Care Provider Results Component Value Reference Range Notes Liver Panel Reviewed date:02/23/2025 12:22:48 PM Interpretation: Performing Lab:[facility], [address] [place] [phone] Notes/Report: Bilirubin Total 0.5 0.0-1.0 mg/dL Bilirubin Direct 0.2 0.0-0.5 mg/dL Aspartate Amino Transferase 31 5-37 U/L Alanine Aminotransferase 29 0-40 U/L Total Protein 6.7 6.5-8.0 g/dL Albumin Level 4.1 3.5-5.0 g/dL Alkaline Phosphatase 66 39-117 U/L Glucose Fasting Reviewed date:02/23/2025 12:22:30 PM Interpretation: Performing Lab:[address] [phone] Notes/Report: Glucose Fasting 139 60-99 mg/dL A fasting glucose of 126 mg/dl or greater on more than one occasion is considered diagnostic of diabetes. Lipid Panel with Reflex Reviewed date:02/23/2025 12:22:12 PM Interpretation: Performing Lab:[facility], [address] [place] [phone] Notes/Report: Triglycerides 77 <150 mg/dL Desirable Triglyceride: [...] A1c Reviewed date:02/23/2025 12:22:21 PM Interpretation: Performing Lab:[facility], [address] [place] [phone] Notes/Report: Hemoglobin A1c % 7.1 <6.0 % [...] average glucose, using the formula of the C4H-Mapjuix Average Glucose study (ADAG), Diabetes Care, Vol.31,#8, Jun. 2007 REASON FOR VISIT fasting lipids Encounters Encounter Location Date Provider Diagnosis Tad Guerra MD [address] [place] [address] [place] [phone] 02/23/2025 Tad Guerra Type 2 diabetes toni [...] 07:30:00 AM, [address], [address], [place], [phone], Provider Name:Tad Hogan ier, 03/10/2026 10:00:00 AM, [address], [address], [place], [phone], Provider Name:Tad Hogan ier, 09/06/2026 07:45:00 AM, [address], [address], [place], [place], [phone], Provider Name:Tad Hogan ier, 09/12/2026 01:00:00 PM, [address] [facility], Suite [facility], [place], [place], [phone], Progress Notes * RAH LEDOB:1955 (69 yo M)Acc No.[id number]:02/23/2025 Progress Note Patient: Jens EDWARDS RAH Provider: Jens Guerra MD :1955 A ge:69 Y S ex:Male Date:02/23/2025 Address:[address] [place] [address] [id number] Subjective: * Chief Complaints: * 1 . [...] 0 02/23/2025 Generated for Arlin bean/Aditya/Rupa on: 09:06 PM EDT
--- OUTSIDE RECORDS SUMMARY | 2025-03-02 09:30 | XMS_ITS ---
Author Organization Tad Guerra MD Address [address] [place], [place] [phone] Care Team Providers Care Protein Chemist Name Role Phone Tad Guerra Primary Care Provider Allergies No Known Allergies Results Component Value Reference Range Notes Blood Urea Nitrogen Reviewed date:03/04/2025 06:45:15 PM Interpretation: Performing Lab:[facility], [address] [place] [phone] Notes/Report: Blood Urea Nitrogen 23 9-16 mg/dL Creatinine Reviewed date:03/04/2025 06:38:28 PM Interpretation: Performing Lab:[facility], [address] [place] [phone] Notes/Report: Creatinine 0.82 0.5-1.4 mg/dL Estimated Glomerular Filt Rate > 60 Chronic Kidney Disease: Estimated GFR < 60 mL/min/1.73m2 Severe Kidney Disease: Estimated GFR < 15 mL/min/1.73m2 Reason For Referral Reason needs colonoscopy Diagnosis 1 Tubular adenoma (D36 .9) Referral Organization Tad Guerra MD Referring Provider First Name Tad Referring Provider Last Name Charlie Referring Provider Speciality Internal M edicine Referred Provider Manuel Joy Referred Provider Specialty Gastroentero logy General Notes Jenny Abad 0 03/02/2025 01:58:33 PM > fax colonoscopy from 2014, Jenny Abad 03/04/2025 02:02:41 PM >info faxed, Elba Abadette 03/05/2025 01:37:26 PM > patient called with info and mailed Referral Priority Routine Referral Appointment Date 05/31/2025 REASON FOR VISIT 6 month DM Medications Medication SIG (Take, Route, Frequency, Duration) Notes Start Date End Date Status Ibuprofen 800 MG TAKE 1 TABLET BY CHEL TH THREE TIMES A DAY WITH FOOD OR MILK NEEDED FOR 30 DAYS for 30 Active Atorvastatin Calcium 20 MG TAKE 1 TABLET BY MOUTH EVERY DAY Active metFORMIN HCl 500 MG take 2 tablet by mo uth twice daily with a meal for 90 days Orally twice a day Active Vital Signs Blood pressure systolic 152 mm Hg 03/02/20 25 Blood pressure diastolic 70 mm Hg 025 Height 64 in 03/02/2025 Weight 141 lbs 03/02/2025 BMI 24.2 kg/m2 03/02/2025 weight is up 3 pounds since 08-31-24 Encounters Encounter Location Date Provider Diagnosis Tad Guerra MD [address] [place] [address] [place] [phone] 03/02/2025 Tad Guerra Type 2 diabetes toni itus without complication, without long-term current use of insulin E11.9 ; Hypercholesterolemia E78.00 ; Tubular adenoma D36.9 and Acute right-sided low back pain with right-sided sciatica M54.41 Assessments Encounter Date Diagnosis (ICD Code) Assessment Notes Treatment Notes Treatment Clinical Notes Section Notes 03/02/2025 Type 2 diabetes mellitus without complication, without long-term current use of insulin (ICD-10 - E11.9) stable, will contnue current regiment 03/02/2025 Hypercholesterolemia (ICD-10 - E78.00) doing well on meds, will continue current regiment 03/02/2025 Tubular adenoma (ICD -10 - D36.9) schedule colonoscopy with dr joy 03/02/2025 Acute right-sided lo w back pain with right-sided sciatica (ICD-10 - M54.41) has resolved Plan Of Treatment Medication Medication Name Sig Start Date Stop Date Notes Atorvastatin Calcium 20 MG TAKE 1 TABLET BY MOUTH EVERY DAY metFORMIN HCl 500 MG take 2 tablet by mo uth twice daily with a meal for 90 days Orally twice a day Treatment Notes Assessment Notes Type 2 diabetes mellitus wit hout complication, without long-term current use of insulin stable, will contnue current regiment Hypercholesterolemia doing well on meds, will continue current regiment Tubular adenoma schedule colonoscopy with dr joy Acute right-sided low back p ain with right-sided sciatica has resolved Referrals Referral Date Details 03/02/2025 03/02/2025, needs co lonoscopy, Manuel Joy Next Appt Details Provider Name:Tad Hogan ier, 03/03/2026 07:30:00 AM, [address] [place] [address], [address], [place], [place], [phone], Provider Name:Tad Hogan ier, 03/10/2026 10:00:00 AM, [address] [place] [address] Drive, Suite [facility], [place], [place], [phone], Provider Name:Tad Hogan ier, 09/06/2026 07:45:00 AM, [address] [place] [address], Suite [facility], [place], [place], [phone], Provider Name:Tad Hogan ier, 09/12/2026 01:00:00 PM, [address] [place] [address], [address], [place], [place], [phone], Progress Notes * RAH LEDOB:1955 (69 yo M)Acc No.[id number]:03/02/2025 Progress Notes Patient: RAH ANTONIO Provider: Jens Guerra MD :1955 A ge:69 Y S ex:Male Date:03/02/2025 Address:[address] [place], [place] [phone] Subjective: * Chief Complaints: * 6 month DM * HPI: S ymptom(s): patient is a 69 yo male here for follow up of diabetes. * ROS: G eneral/Constitutional: Denies C hills. D enies F atigue. D enies F ever. D enies H eadache. E NT: Denies S ore throat. E ndocrine: Denies D ifficulty sleeping. D enies D izziness.?Denies E xcessive sweating. D enies E xcessive thirst. D enies F requent urination. R espiratory: Denies C ough. D enies S hortness of breath at rest. D enies S hortness of breath with exertion. G astrointestinal: Denies D iarrhea. D enies N ausea. * Medical History: * Surgical History: * Hospitalization/Major Diagno stic Procedure: * Medications: T akingIbuprofen 800 MG Tablet TAKE 1 TABLET BY MOUTH THREE TIMES A DAY WITH FOOD OR MILK NEEDED FOR 30 DAYS metFORMIN HCl 500 MG Tablet take 2 tablet by mouth twice daily with a meal for 90 days Orally twice a day Atorvastatin Calcium 20 MG Tablet TAKE 1 TABLET BY MOUTH EVERY DAY Medication List reviewed and reconciled with the patientTaking Ibuprofen 800 MG Tablet TAKE 1 TABLET BY MOUTH THREE TIMES A DAY WITH FOOD OR MILK NEEDED FOR 30 DAYS Taking metFORMIN HCl 500 MG Tablet take 2 tablet by mouth twice daily with a meal for 90 days Orally twice a day Taking Atorvastatin Calcium 20 MG Tablet TAKE 1 TABLET BY MOUTH EVERY DAY Medication List reviewed and reconciled with the patient * Allergies: N .K.D.A.yes[Allergies Verified] Objective: * Vitals: H t: 64, Wt: 141, BMI:24.2, BP:152/70, Repeat BP:126/70, Wt-k.96. weight is up 3 pounds since 08-31-24. * P ast Orders: L ab:Liver Panel (Order Date - 02/23/2025) (Collection Date & Time - 02/23/2025 07:30 AM) Value Reference Range Bilirubin Total 0.5 0.0-1.0 - mg/dL Bilirubin Direct 0.2 0.0-0.5 - mg/dL Aspartate Amino Transferase 31 5-37 - U/L Alanine Aminotransferase 29 0-40 - U/L Total Protein 6.7 6.5-8.0 - g/dL Albumin Level 4.1 3.5-5.0 - g/dL Alkaline Phosphatase 66 39-117 - U/L L ab:Glucose Fasting (Order Date - 02/23/2025) (Collection Date & Time - 02/23/2025 07:30 AM) Value Reference Range Glucose Fasting 139 H 60-99 - mg/dL L ab:Lipid Panel with Reflex (Order Date - 02/23/2025) (Collection Date & Time - 02/23/2025 07:30 AM) Value Reference Range Triglycerides 77 <150 - mg/dL Cholesterol 140 <200 - mg/dL LDL Cholesterol Calculated 60 <100 - mg/dL HDL Cholesterol 65 >40 - mg/dL L ab:Hemoglobin A1c (Order Date - 02/23/2025) (Collection Date & Time - 02/23/2025 07:30 AM) Value Reference Range Hemoglobin A1c % 7.1 H <6.0 - % Estimated Average Glucose 157 - mg/dL * Examination: G eneral Examination: GENERAL APPEARANCE: a lert, well hydrated, in no distress.? HEAD: n ormocephalic. SKIN: g ood turgor. HEART: r egular rate and rhythm, no murmurs, rubs, gallops.? LUNGS: n o wheezes, rales, rhonchi, good air movement, clear to auscultation bilaterally. Assessment: * Assessment: 1. T ype 2 diabetes mellitus without complication, without long-term current use of insulin - E11.9 (Primary) 2 . H ypercholesterolemia - E78.00 3 . T ubular adenoma - D36.9 4 . A cute right-sided low back pain with right-sided sciatica - M54.41 Plan: * Treatment: 2. H ypercholesterolemia Continue Atorvastatin Calcium Tablet, 20 MG, TAKE 1 TABLET BY MOUTH EVERY DAY. Notes: doing well on meds, will continue current regiment 3. T ubular adenoma Notes: schedule colonoscopy with dr joy ? Referral To:[facility] Reason:needs colonoscopy 4. A cute right-sided low back pain with right-sided sciatica Notes: has resolved * Procedure Codes: 3 6415 VENIPUNCT, ROUTINE* * * Sign off status: Completed true * Provider: Jens Guerra MD Date: 0 03/02/2025 Generated for Arlin bean/Aditya/eTdakshaitting on: 1 09:07 PM EDT History and Physical Notes * HPI (History of Present Illness) Category Sub-Category Detail Notes Category Not es Symptom(s) patient is a 69 yo male here for follow up of diabetes Examination Category Sub-Category Detail Notes Category Not es General Examination GENERAL APPEARANCE: alert, w ell hydrated, in no distress HEAD: normocephalic HEART: regular rate and rhy thm, no murmurs, rubs, gallops LUNGS: no wheezes, rales, r honchi, good air movement, clear to auscultation bilaterally SKIN: good turgor Consultation Request Notes Referral Date Referring Provider Referred Provider Not es 03/02/2025 Tad Guerra Robert needs colo noscopy
--- OUTSIDE RECORDS SUMMARY | 2025-07-13 05:53 | XMS_ITS ---
Author Organization Tad Guerra MD Address [address] [place] [phone] Care Team Providers Care Furnace Erector Name Role Phone Tad Guerra Primary Care Provider [phone] REASON FOR VISIT refill Medications Medication SIG (Take, Route, Frequency, Duration) Notes Start Date End Date Status Atorvastatin Calcium 20 MG TAKE 1 TABLET BY MOUTH EVERY DAY Once a day for 90 days Active Encounters Encounter Location Date Provider Diagnosis Tad Guerra MD [address] [place] [address] Drive [address] [place] [phone] 07/13/2025 Tad Guerra Hypercholesterolemia E78.00 Assessments Encounter Date Diagnosis (ICD Code) Assessment Notes Treatment Notes Treatment Clinical Notes Section Notes 07/13/2025 Hypercholesterolemia (ICD-10 - E78.00) Plan Of Treatment Medication Medication Name Sig Start Date Stop Date Notes Atorvastatin Calcium 20 MG TAKE 1 TABLET BY MOUTH EVERY DAY Once a day for 90 days Next Appt Details Provider Name:Tad guzman, 03/03/2026 07:30:00 AM, [address] [place] [address], [address], [phone], Provider Name:Tad guzman, 03/10/2026 10:00:00 AM, [address] [place] [address], [address], [phone], Provider Name:Tad guzman, 09/06/2026 07:45:00 AM, [address], [address], [place], [place], [phone], Provider Name:Tad Hogan thomas, 09/12/2026 01:00:00 PM, [address], [address], [place], [place], [phone], Progress Notes * RAH LEDOB:1955 (69 yo M)Acc No.[id number]:07/13/2025 Patient: Jens RAH EDWARDS :1955 A ge:69 Y S ex:Male Address:[address] [place] [address], [address] * Refills Refill Atorvastatin Calcium Tablet, 20 MG, 90, TAKE 1 TABLET BY MOUTH EVERY DAY, Once a day, 90 days, Refills=3 * true * Date: Generated for Arlin bena/Aditya/Martitasmitting on: 09:09 PM EDT
--- OUTSIDE RECORDS SUMMARY | 2025-08-26 04:00 | XMS_ITS ---
Author Organization Tad Guerra MD Address [address] [place], [place] [phone] Care Team Providers Care Mortgage Coordinator Name Role Phone Tad Guerra Primary Care Provider [phone] Results Component Value Reference Range Notes Complete Blood Count Auto Di ff Reviewed date:08/26/2025 12:46:33 PM Interpretation: Performing Lab:[facility], [address] [place] [phone] Notes/Report: White Blood Count 7.3 4.8-10.8 X10*3/uL [...] Panel Reviewed date:08/26/2025 12:32:07 PM Interpretation: Performing Lab:[address] [phone] Notes/Report: Triglycerides 55 <150 mg/dL Desirable Triglyceride: [...] Random Reviewed date:08/26/2025 12:32:56 PM Interpretation: Performing Lab:[address] [phone] Notes/Report: Creatinine Urine 58.85 Microalbumin Urine < 5.0 Microalbum/Creatinine Ratio Ur TNP <30 ug/mg cr Unable to calculate albumin/creatinine ratio due to low microalbumin or creatinine result. Hemoglobin A1c Reviewed date:08/26/2025 12:35:06 PM Interpretation: Performing Lab:[facility], [address] [place] [phone] Notes/Report: Hemoglobin A1c % 7.3 <6.0 % [...] average glucose, using the formula of the X2W-Ntnined Average Glucose study (ADAG), Diabetes Care, Vol.31,#8, Jun. 2007 UA ClnCatch+Micro w/rflx Cul t Reviewed date:08/26/2025 12:46:47 PM Interpretation: Performing Lab:[facility], [address] [place] [phone] Notes/Report: Urine, Clean Catch Color Urine Yellow Appearance Urine Clear PH 5.5 5.0-9.0 Glucose Urine UA Negative Negative mg/dL Urine Blood Negative Negative Specific [place] - Urine 1.010 1.005-1.025 Urine Protein Negative [...] Date Provider Diagnosis Tad Guerra MD [address] [place], [place] [phone] 08/26/2025 Tad Guerra Blood tests for rout [...] Pending Test Test Name Order Date Comprehensive [place]. Panel Fast PSA,Total (Free>4and<10) 08/26/2025 Next Appt Details Provider Name:Tad Hogan ier, 03/03/2026 07:30:00 AM, [address] [place] [address], [address], [phone], Provider Name:Tad krishnar, 03/10/2026 10:00:00 AM, [address] [place] [address], [address], [phone], Provider Name:Tad Hogan ier, 09/06/2026 07:45:00 AM, [address] [place] [address], [address], [phone], Provider Name:Tad Hogan ier, 09/12/2026 01:00:00 PM, [address] [place] [address], [address], [phone], Progress Notes * BRETT LETOMDOB:1955 (69 yo M)Acc No.[id number]:08/26/2025 Progress Note Patient: RAH ANTONIO Provider: Jens Guerra MD :1955 A ge:69 Y S ex:Male Date:08/26/2025 Address:[address] [place] [address] [id number] Subjective: * Chief Complaints: * 1 . [...] current use of insulin L AB: Comprehensive [place]. Panel Fast L AB: PSA,Total (Free>4and<10) L [...] AM) 3. H ypercholesterolemia L AB: Comprehensive [place]. Panel Fast L AB: PSA,Total (Free>4and<10) L [...] * Procedure Codes: 3 6415 VENIPUNCT, ROUTINE*, 39128 FLU VACC PRSV FREE INC ANTIG, G0008 ADMN FLU VAC NO FEE SCHED SAME DAY * * The named appointment provid er may or may not be the originator of this progress note, and it is not deemed complete until electronically signed by the appointment provider. Sign off status: Pending * Provider: Jens Guerra MD Date: 1 Generated for Arlin bean/Aditya/Martitasmitting on: 09:08 PM EDT
--- OUTSIDE RECORDS SUMMARY | 2025-09-09 09:00 | XMS_ITS ---
Author Organization Tad Guerra MD Address [address] [place], [place] [id number] Care Team Providers Care Rolls Baker Name Role Phone Tad Guerra Primary Care Provider Allergies No Known Allergies Results Component Value Reference Range Notes Occult Blood, Stool, Guaiac Reviewed date:09/09/2025 02:02:02 PM Interpretation:Negative Performing Lab: Notes/Report: Negative Occult Blood, Stool, Guaiac neg REASON FOR VISIT annual visit Medications Medication SIG (Take, Route, Frequency, Duration) Notes Start Date End Date Status Atorvastatin Calcium 20 MG TAKE 1 TABLET BY MOUTH EVERY DAY for 90 Active Ibuprofen 800 MG TAKE 1 TABLET BY CHEL TH THREE TIMES A DAY WITH FOOD OR MILK NEEDED FOR 30 DAYS for 30 Not-Taking metFORMIN HCl 500 MG TAKE 2 TABLET BY MO [facility] TWICE DAILY WITH A MEALS FOR 90 DAYS for 90 Active Social History Tobacco Use: Social History Observation [...] Interpretation Negative Vital Signs Blood pressure systolic 144 mm Hg 09/09/20 25 Blood pressure diastolic 70 mm Hg 025 Height 64 in 09/09/2025 Weight 141 lbs 09/09/2025 BMI 24.2 kg/m2 09/09/2025 Encounters Encounter Location Date Provider Diagnosis Tad Guerra MD [address] [place] [address] [place] [phone] 09/09/2025 Tad Guerra Type 2 diabetes toni itus without complication, without long-term current use of insulin E11.9 ; Annual physical exam Z00.00 ; Hypercholesterolemia E78.00 ; Skin lesion L98.9 ; Colon cancer screening Z12.11 and Depression screening Z13.31 Assessments Encounter Date Diagnosis (ICD Code) Assessment Notes Treatment Notes Treatment Clinical Notes Section Notes 09/09/2025 Type 2 diabetes toni itus without complication, without long-term current use of insulin (ICD-10 - E11.9) doing well on meds and diet, will continue current regiment 09/09/2025 Annual physical exam (ICD-10 - Z00.00) labs reviewed and discussed with patient 09/09/2025 Hypercholesterolemia (ICD-10 - E78.00) doing well on meds, will continue current regiment 09/09/2025 Skin lesion (ICD-10 - L98.9) is from an injury at work years ago 09/09/2025 Colon cancer screeni ng (ICD-10 - Z12.11) guaiac negative 09/09/2025 Depression screening (ICD-10 - Z13.31) negative screen Plan Of Treatment Treatment Notes Assessment Notes Type 2 diabetes mellitus wit hout complication, without long-term current use of insulin doing well on meds and diet, will continue current regiment Annual physical exam labs reviewed and d iscussed with patient Hypercholesterolemia doing well on meds, will continue current regiment Skin lesion is from an injury at work years ago Colon cancer screening guaiac negative Depression screening negative screen Next Appt Details Follow Up: 6 Months, Reason: dm Provider Name:Tad guzman, 03/03/2026 07:30:00 AM, [address] [place] [address], [place] [address], [place], [place], [phone], Provider Name:Tad guzman, 03/10/2026 10:00:00 AM, [address] [place] [address], [address], [phone], Provider Name:Tad guzman, 09/06/2026 07:45:00 AM, [address], [address], [place], [place], [phone], Provider Name:Tad Hogan ier, 09/12/2026 01:00:00 PM, [address], [address], [place], [place], [phone], Progress Notes * RAH LEDOB:1955 (69 yo M)Acc No.[id number]:09/09/2025 Progress Notes Patient: RAH ANTONIO Provider: Jens Guerra MD :1955 A ge:69 Y S ex:Male Date:09/09/2025 Address:[address] [place], [place] [phone] Subjective: * Chief Complaints: * A nnual visit * HPI: D epression Screening: PHQ-9 L [...] at all, T otal Score 0 . C ommunication Needs: Communication Needs D oes the patient have a hearing impairment N o, D oes the patient have a vision impairment? Y es, I f yes, what is the vision impairment? G lasses, D oes the patient have a cognition impairment? N o. F all Risk: History H ave you had any falls with injury in the past year? N o, H ave you had two or more falls in the past year? N o. S MARISEL Questions: SDOH Questions I n the past year have you been worried about losing housing? N o, I n the past year have you or any family members you live with been unable to get any of the following when it was really needed? Check all that apply: N one. S ymptom(s): patient is a 69 yo male here for yearly evaluation going to gym. doing his own therpay every day for his back. * ROS: G eneral/Constitutional: Change in appetite [...] History: F ather: 65 yrs. M other: 85 yrs. 2 brother(s) , 2 sister(s) . 1 son(s) , 1 daughter(s) . . Mother- Healthy father Prostate Cancer 1 brother cancer, No pertinent family medical history, Denies mental health/substance abuse family history, Denies mental health/substance abuse family history 1 sister 60 stomach cancer 1 brother 65 prostate cancer Mother colon cancer. * Social History: T obacco Use: [...] , I nterpretation N egative. M iscellaneous: C affeine: no, 1-2 cups per day. Children: yes. Community involvements: yes. Exercise: yes, weights running hiking everyday. Home smoke detector use: yes. Housing: owning. Living with: spouse. Marital status: . Occupation: weeks/months/years, works full-time. Pets: cats: dogs:1 dog. * Medications: T akingmetFORMIN HCl 500 MG Tablet TAKE 2 TABLET BY MOUTH TWICE DAILY WITH A MEALS FOR 90 DAYS Atorvastatin Calcium 20 MG Tablet TAKE 1 TABLET BY MOUTH EVERY DAY Taking metFORMIN HCl 500 MG Tablet TAKE 2 TABLET BY MOUTH TWICE DAILY WITH A MEALS FOR 90 DAYS Taking Atorvastatin Calcium 20 MG Tablet TAKE 1 TABLET BY MOUTH EVERY DAY Not-Taking/PRNIbuprofen 800 MG Tablet TAKE 1 TABLET BY MOUTH THREE TIMES A DAY WITH FOOD OR MILK NEEDED FOR 30 DAYS Medication List reviewed and reconciled with the patientNot-Taking/PRN Ibuprofen 800 MG Tablet TAKE 1 TABLET BY MOUTH THREE TIMES A DAY WITH FOOD OR MILK NEEDED FOR 30 DAYS Medication List reviewed and reconciled with the patient * Allergies: N .K.D.A.yes[Allergies Verified] Objective: * Vitals: H t: 64, Wt: 141, BMI:24.2, BP:144/70, Repeat BP:138/70, Wt-k.96. * P ast Orders: L ab:Microalbumin, Random (Order Date - 08/26/2025) (Collection Date & Time - 08/26/2025 08:00 AM) Value Reference Range Creatinine Urine 58.85 - mg/dL Microalbumin Urine < 5.0 - mg/L Microalbum Creatinine Ratio Ur TNP <30 - ug/ mg cr L ab:Hemoglobin A1c (Order Date - 08/26/2025) (Collection Date & Time - 08/26/2025 08:00 AM) Value Reference Range Hemoglobin A1c % 7.3 H <6.0 - % Estimated Average Glucose 163 - mg/dL L ab:UA ClnCatch+Micro w/rflx Cult (Order Date - 08/26/2025) (Collection Date & Time - 08/26/2025 08:00 AM) Value Reference Range Color Urine Yellow - Appearance Urine Clear - PH 5.5 5.0-9.0 - Glucose Urine UA Negative Negative - mg/dL Urine Blood Negative Negative - Specific [place] - Urine 1.010 1.005-1.025 - Urine Protein Negative Neg-Trace - mg/dL Urine Ketones Negative Negative - mg/dL Nitrite Urine Negative Negative - Leukocyte Esterase Urine Negative Negative - RBC Urine 0-2 0-2 - /HPF WBC Urine 0-5 0-5 - /HPF Squamous Epithelial Cell Urine 0-2 0-2 - /HP F Bacteria Urine None Seen None Seen - Hyaline Casts Urine 0-2 0-2 - /LPF L ab:Complete Blood Count Auto Diff (Order Date - 08/26/2025) (Collection Date & Time - 08/26/2025 08:00 AM) Value Reference Range White Blood Count 7.3 4.8-10.8 - X10*3/uL Red Blood Count 4.70 4.60-5.80 - X10*6/uL Hemoglobin 14.0 14.0-18.0 - g/dl Hematocrit 40.7 L 42.0-52.0 - % Mean Corpuscular Volume 86.6 80.0-98.0 - fL Mean Corpuscular Hemoglobin 29.8 27.0-33.0 - pg Mean Corpuscular HGB Conc 34.4 31.0-36.0 - g/ dl Red Cell Distribution Width 13.8 11.0-16.0 - % Platelet Count 320 160-400 - X10*3/uL Mean Platelet Volume 9.1 L 9.4-12.4 - fL Neutrophils Percent Auto 46.9 45-73 - % Imm Gran Pct Auto 0.3 0.0-0.4 - % Lymphocytes Percent Auto 32.8 20-40 - % Monocytes Percent Auto 12.0 H 2-11 - % Eosinophils Percent Auto 6.4 H 0-4 - % Basophils Percent Auto 1.6 0-2 - % NRBC Pct Auto 0.0 0.0-0.2 - /100WBC Neutrophils Absolute Auto 3.4 2.0-8.3 - x10* 3/uL Imm Gran Abs Auto 0.02 0.00-0.03 - X10*3/uL Lymphocytes Absolute Auto 2.4 1.2-4.9 - X10* 3/uL Monocytes Absolute Auto 0.9 0.1-1.2 - X10*3/ uL Eosinophils Absolute Auto 0.5 H 0.0-0.4 - X10* 3/uL Basophils Absolute Auto 0.1 0.0-0.2 - X10*3/ uL NRBC Abs Auto 0.000 0.0-0.012 - X10*3/uL L ab:Comprehensive Met. Panel (Order Date - 08/26/2025) (Collection Date & Time - 08/26/2025 08:00 AM) Value Reference Range Sodium 139 135-145 - mmol/L Bilirubin Total 0.4 0.0-1.0 - mg/dL Aspartate Amino Transferase 33 5-37 - U/L Alanine Aminotransferase 25 0-40 - U/L Total Protein 6.9 6.5-8.0 - g/dL Albumin Level 4.2 3.5-5.0 - g/dL Alkaline Phosphatase 76 39-117 - U/L Potassium 4.0 3.3-5.1 - mmol/L Chloride 105 96-108 - mmol/L Carbon Dioxide 27 22-29 - mmol/L Anion Gap 11 L 12-20 - Blood Urea Nitrogen 18 H 9-16 - mg/dL Creatinine 0.83 0.5-1.4 - mg/dL Estimated Glomerular Filt Rate > 60 - Glucose Random 139 H 60-115 - mg/dL Calcium 9.2 8.4-10.2 - mg/dL L ab:Prostate Specific Antigen (Order Date - 08/26/2025) (Collection Date & Time - 08/26/2025 08:00 AM) Value Reference Range Prostate Specific Antigen 2.68 <0.05-4.0 - ng /mL L ab:Lipid Panel (Order Date - 08/26/2025) (Collection Date & Time - 08/26/2025 08:00 AM) Value Reference Range Triglycerides 55 <150 - mg/dL Cholesterol 149 <200 - mg/dL LDL Cholesterol Calculated 68 <100 - mg/dL HDL Cholesterol 70 >40 - mg/dL * Examination: G eneral Examination: [...] SKIN: w arm and dry, no suspicious lesions , abnormal on left side of nose is a dark spot about 5 mm. HEART: r egular rate and rhythm, S1, S2 normal, no murmurs.? LUNGS: c lear to auscultation bilaterally. ABDOMEN: s oft, nontender, nondistended, bowel sounds present, normal, no organomegaly , no masses palpable. RECTAL EXAM: n ormal tone, no external hemorrhoids, no masses palpable, prostate normal, stool guaiac negative. EXTREMITIES: n o clubbing, cyanosis, or edema. NEUROLOGIC: n onfocal, motor strength normal upper and lower extremities, sensory exam intact. FOOT EXAM: . Assessment: * Assessment: 1. A nnual physical exam - Z00.00 (Primary) 2 . T ype 2 diabetes mellitus without complication, without long-term current use of insulin - E11.9 3 . H ypercholesterolemia - E78.00 4 . S kin lesion - L98.9 5 . C olon cancer screening - Z12.11 6 . D epression screening - Z13.31 Plan: * Treatment: 2. T ype 2 diabetes mellitus without complication, without long-term current use of insulin Notes: doing well on meds and diet, will continue current regiment 3. H ypercholesterolemia Notes: doing well on meds, will continue current regiment 4. S kin lesion Notes: is from an injury at work years ago 5. C olon cancer screening L AB: Occult Blood, Stool, Guaiac (Collection Date & Time - 09/09/2025) N egative Value Reference Range O ccult Blood, Stool, Guaiac neg Notes: guaiac negative??6.?Depression screening? Notes: negative screen?? * Procedure Codes: 8 2270 TEST FOR BLOOD, FECES * Follow Up: 6 Months (Reason: dm) * * Sign off status: Completed true * Provider: Jens Guerra MD Date: 1 Generated for Arlin bean/Aditya/Daviditting on: 09:07 PM EDT History and Physical Notes * HPI (History of Present Illness) Category Sub-Category Detail Notes Category Not es Symptom(s) patient is a 69 yo male here for yearly evaluation going to gym. doing his own therpay every day for his back. Depression Screening PHQ-9 Little inte rest or [...] way: Not at all Total Score: 0 SDOH Questions SDOH Questions In the past year have you been worried about losing housing?: No In the past year have you or any family members you live with been unable to get any of the following when it was really needed? Check all that apply:: None Fall Risk History Have you had any falls with injury i n the past year?: No Have you had two or more falls in the year?: No Communication Needs Communication Needs Does the patient [...] rate and rhy thm, S1, S2 normal, no murmurs LUNGS: clear to auscultatio n bilaterally ABDOMEN: soft, nontender, non distended, bowel sounds present, normal, no organomegaly , no masses palpable NEUROLOGIC: nonfocal, motor stre ngth normal upper and lower extremities, sensory exam intact SKIN: warm and dry, no peggy picious lesions , abnormal on left side of nose is a dark spot about 5 mm EXTREMITIES: no clubbing, cyanosi s, or edema RECTAL EXAM: normal tone, no exte rnal hemorrhoids, no masses palpable, prostate normal, stool guaiac negative ORAL CAVITY: mucosa moist FOOT EXAM: Date: 09/09/2025 normal pinprick . normal pulse. normal light touch.
[2025-09-22 20:45] VITALS: BP 195/104; PULSE 78; RESP 18; TEMP 37; O2SAT 98; BMI 24.1
--- OUTSIDE RECORDS SUMMARY | 2025-09-22 21:07 | XMS_ITS | Clinical Summary ---
Author Organization [facility] Address [address] [address] Phone Care Team Providers Care Classifications Officer Cc/Cm Name Role Phone Tad Guerra MD Primary [...] REPLACEMENT MEDICARE PART A & B AETNA [facility] MEDICARE REPLACEMENT MEDICARE PART A & B AETNA O MEDICARE REPLACEMENT MEDICARE PART A & B [facility] RE[facility] MEDICARE PART A & B AETNA PPO MEDICARE REPLACEMENT MEDICARE PART A & B Care Teams Classifications Officer Cc/Cm Relationship Specialty Start Date End Date Tad Guerra MD [address] [place] [address] [place] [phone] PCP - General Internal Medicine 10/16/21 Additional Source Comments The information contained in this document represents components of the legal health record. It is not the complete legal health record.[facility]
--- OUTSIDE RECORDS SUMMARY | 2025-09-22 21:07 | XMS_ITS | Patient Health Record ---
Author Organization [facility] Address [address] [place] [address] Care Team Providers Care Managed Services Consultant Name Role Phone Charlie WATTS, Tad Primary Care Provider Manuel Soliman [phone] Allergies No Known Allergies Reason For Referral [...] Status Risk Notes Problem Colon cancer screening (205672861) Colon cancer screening (Z12.11) Active confirmed Problem Preprocedural examination (026469255899482) Preprocedural examination (Z01.818) Active confirmed Problem History of adenomatous polyp of colon (125032109) History of adenomatous polyp of colon (Z86.0101) Active confirmed Vital Signs Temperature 98.6 degrees Fahrenheit 07/01/2025 Blood pressure diastolic 01 mm Hg 07/01/2025 Height 64 in 07/01/2025 Blood pressure systolic 001 mm Hg 07/01/2025 Weight 141.6 lbs 07/01/2025 BMI 24.3 kg/m2 07/01/2025 Procedures Procedure Date Ordered Date Performed Result Body Sit e COLONOSCOPY 07/01/2025 N/A Encounters Encounter Location Date Provider Diagnosis [facility] [address] [place] [address] 07/01/2025 Manuel Patel Colon cancer screeni ng [...] Provider Name:Manuel Patel , 10/04/2025 10:30:00 AM, [address] [place] [address], [phone], Insurance Providers Payer Name Payer Address Payer Phone Subscriber Number Group Number Insured Name Patient Relationship to Insured Coverage Start Date Coverage End Date [facility] [address] [place], [place] [id number] LEO LE Self - patient is the insured Medical (General) History Medical History History ICD Code NIDDM hyperlipidemia Denies [place],CVA,Lung disease,renal disease He has had a negative screen ing colonoscopy at age 48 and then a small tubular adenoma removed in [place] [address] Mesa. He has not had a colonoscopy since that time. Surgical History Surgery Date(Month/Year) Right rotator cuff
--- OUTSIDE RECORDS SUMMARY | 2025-09-22 21:08 | XMS_ITS | Patient Health Record ---
Author Organization Tad Guerra MD Address [address] [place], [place] [id number] Care Team Providers Care Bone Density Technician Name Role Phone Tad Guerra Primary Care Provider Allergies No Known Allergies Results Component Value Reference Range Notes Liver Panel Reviewed date:02/23/2025 12:22:48 PM Interpretation: Performing Lab:[facility], [address] [place] [phone] Notes/Report: Bilirubin Total 0.5 0.0-1.0 mg/dL Bilirubin Direct 0.2 0.0-0.5 mg/dL Aspartate Amino Transferase 31 5-37 U/L Alanine Aminotransferase 29 0-40 U/L Total Protein 6.7 6.5-8.0 g/dL Albumin Level 4.1 3.5-5.0 g/dL Alkaline Phosphatase 66 39-117 U/L Glucose Fasting Reviewed date:02/23/2025 12:22:30 PM Interpretation: Performing Lab:[facility], [address] [place] [phone] Notes/Report: Glucose Fasting 139 60-99 mg/dL A fasting glucose of 126 mg/dl or greater on more than one occasion is considered diagnostic of diabetes. Lipid Panel with Reflex Reviewed date:02/23/2025 12:22:12 PM Interpretation: Performing Lab:[facility], [address] [place] [phone] Notes/Report: Triglycerides 77 <150 mg/dL Desirable Triglyceride: [...] A1c Reviewed date:02/23/2025 12:22:21 PM Interpretation: Performing Lab:[facility], [address] [place] [phone] Notes/Report: Hemoglobin A1c % 7.1 <6.0 % [...] average glucose, using the formula of the [id number] Average Glucose study (ADAG), Diabetes Care, Vol.31,#8, 2007 Complete Blood Count Auto Di ff Reviewed date:08/26/2025 12:46:33 PM Interpretation: Performing Lab:[facility], [address] [place] [phone] Notes/Report: White Blood Count 7.3 4.8-10.8 X10*3/uL [...] Panel Reviewed date:08/26/2025 12:32:07 PM Interpretation: Performing Lab:[facility], [address] [place] [phone] Notes/Report: Triglycerides 55 <150 mg/dL Desirable Triglyceride: [...] Random Reviewed date:08/26/2025 12:32:56 PM Interpretation: Performing Lab:[address] [phone] Notes/Report: Creatinine Urine 58.85 Microalbumin Urine < 5.0 Microalbum/Creatinine Ratio Ur TNP <30 ug/mg cr Unable to calculate albumin/creatinine ratio due to low microalbumin or creatinine result. Hemoglobin A1c Reviewed date:08/26/2025 12:35:06 PM Interpretation: Performing Lab:[facility], [address] [place] [phone] Notes/Report: Hemoglobin A1c % 7.3 <6.0 % [...] average glucose, using the formula of the D5W-Naeubra Average Glucose study (ADAG), Diabetes Care, Vol.31,#8, Jun. 2007 UA ClnCatch+Micro w/rflx Cul t Reviewed date:08/26/2025 12:46:47 PM Interpretation: Performing Lab:[facility], [address] [place] [phone] Notes/Report: Urine, Clean Catch Color Urine Yellow Appearance Urine Clear PH 5.5 5.0-9.0 Glucose Urine UA Negative Negative mg/dL Urine Blood Negative Negative Specific [place] - Urine 1.010 1.005-1.025 Urine Protein Negative Neg-Trace mg/dL Urine Ketones Negative Negative mg/dL Nitrite Urine Negative Negative Leukocyte Esterase Urine Negative Negative RBC Urine 0-2 0-2 /HPF WBC Urine 0-5 0-5 /HPF Squamous Epithelial Cell Urine 0-2 0-2 /HPF Bacteria Urine None Seen None Seen Hyaline Casts Urine 0-2 0-2 /LPF Blood Urea Nitrogen Reviewed date:03/04/2025 06:45:15 PM Interpretation: Performing Lab:[address] [phone] Notes/Report: Blood Urea Nitrogen 23 9-16 mg/dL Creatinine Reviewed date:03/04/2025 06:38:28 PM Interpretation: Performing Lab:[facility], [address] [place] [phone] Notes/Report: Creatinine 0.82 0.5-1.4 mg/dL Estimated Glomerular Filt Rate > 60 Chronic Kidney Disease: Estimated GFR < 60 mL/min/1.73m2 Severe Kidney Disease: Estimated GFR < 15 mL/min/1.73m2 Occult Blood, Stool, Guaiac Reviewed date:09/09/2025 02:02:02 PM Interpretation:Negative Performing Lab: Notes/Report: Negative Occult Blood, Stool, Guaiac neg Hold Gold Reviewed date:02/23/2025 12:22:03 PM Interpretation: Performing Lab:[facility], [address] [place] [phone] Notes/Report: Hold Gold See Note Specimen held untested for 24 hours; Call to request Chemistry testing. Comprehensive Met. Panel Reviewed date:08/26/2025 12:43:23 PM Interpretation: Performing Lab:[facility], [address] [place] [phone] Notes/Report: Sodium 139 135-145 mmol/L Potassium 4.0 [...] Antigen Reviewed date:08/26/2025 12:34:57 PM Interpretation: Performing Lab:[facility], [address] [facility], [place] [phone] Notes/Report: Prostate Specific Antigen 2.68 <0.05-4.0 ng/mL [...] Status W/U Status Risk Notes Problem Balanitis (01189434) Balanitis (N48.1) Active c onfirmed Problem 600426621 Irritable bowel syndrome with diarrhea (K58.0) Active confirmed Problem 482970866 Tubular adenoma (D36.9) Active confirmed Problem 6419586967542 Tinnitus, bilate ral (H93.13) Active confirmed Problem Sciatica (71222974) Acute right- sided low back pain with right-sided sciatica (M54.41) Active confirmed Problem 41073724 Sciatica of righ t side (M54.31) Active confirmed Problem Pure hypercholesterolemia (098881963) Pure hypercholesterolemia (E78.00) Active confirmed Problem 57677017 Hypercholesterol emia (E78.00) Active confirmed Problem 971883100 Type 2 diabetes mellitus without complication, without long-term current use of insulin (E11.9) Active confirmed Problem 33378555 Lumbar degenerat zenaida disc disease (M51.36) Active confirmed Vital Signs Blood pressure diastolic 70 mm Hg 09/09/2025 Height 64 in 09/09/2025 Blood pressure systolic 144 mm Hg 09/09/2025 Weight 141 lbs 09/09/2025 BMI 24.2 kg/m2 09/09/2025 Encounters Encounter Location Date Provider Diagnosis Tad Guerra MD [address] [place] [id number] 02/23/2025 Tad Guerra Type 2 diabetes toni itus without complication, without long-term current use of insulin E11.9 and Hypercholesterolemia E78.00 Tad Gu[address] MD [address] [place] [id number] 08/26/2025 Tad Guerra Blood tests for rout ine general physical examination Z00.00 ; Encounter for administration of vaccine Z23 ; Type 2 diabetes mellitus without complication, without long-term current use of insulin E11.9 and Hypercholesterolemia E78.00 Tad Guerra MD [address] [place] [address] Drive [address] [place] [id number] 03/02/2025 Tad Guerra Type 2 diabetes toni itus without complication, without long-term current use of insulin E11.9 ; Hypercholesterolemia E78.00 ; Tubular adenoma D36.9 and Acute right-sided low back pain with right-sided sciatica M54.41 Tad Guerra MD [address] [place] [address] Drive [address] [place] [id number] 09/09/2025 Tad Guerra Type 2 diabetes toni itus without complication, without long-term current use of insulin E11.9 ; Annual physical exam Z00.00 ; Hypercholesterolemia E78.00 ; Skin lesion L98.9 ; Colon cancer screening Z12.11 and Depression screening Z13.31 Tad Guerra MD [address] [place] [id number] 07/13/2025 Tad Guerra Hypercholesterolemia E78.00 Assessments Encounter [...] Test Name Order Date ECHO 08/31/2024 Comprehensive [place]. Panel Fast PSA,Total (Free>4and<10) 08/26/2025 Next Appt Details Provider Name:Tad krishnar, 03/03/2026 07:30:00 AM, [address] [place] [address], [address], [phone], Provider Name:Tad krishnar, 03/10/2026 10:00:00 AM, [address] [place] [address], [phone], Provider Name:Tad Hogan ier, 09/06/2026 07:45:00 AM, [address] [place] [address], [address], [phone], Provider Name:Tad krishnar, 09/12/2026 01:00:00 PM, [address] [place] [address], [address], [phone], Insurance Providers Payer Name Payer Address Payer Phone Subscriber Number Group Number Insured Name Patient Relationship to Insured Coverage Start Date Coverage End Date [employer] MED[employer]ARE [employer]AGE [address] PRIYA TELLO [id number] EL Self - patient is the insured MEDIC[employer] [address] [place] [address] [id number] RAH LE Self - patient is the insured Medical (General) History Medical History History ICD Code diabetes since age 43 colonoscopy 2015. due in 10 years
--- NOTE | 2025-09-22 21:46 | ED.GENADULT ---
HPI - General Adult General Chief complaint: Back Pain/Injury Stated complaint: left side pain Time Seen by Provider: 09/22/25 21:41 Source: patient Limitations: no limitations History of Present Illness ED Provider: Annalisa Alcantara PA-C HPI narrative: 69-year-old male with a chronic significant lumbar degenerative disc disease, presents with low back strain. Patient states he exercises and stretches on a regular basis secondary to his chronic pain. While in the shower overnight, the patient was performing his stretches, when he strained his back. The pain is radiating down bilateral lower extremities. Denies weakness of lower extremities, paresthesia, urinary retention or bowel incontinence. The patient did not fall. There was no trauma. Related Data Home Medications ?Medication ?Instructions ?Recorded ?Confirmed atorvastatin 20 mg tablet 20 mg PO DAILY 09/05/22 10/05/22 gabapentin 300 mg capsule mg PO 09/05/22 10/05/22 hydrocortisone acetate 2.5 % 1 appl DC BID-QID PRN 09/05/22 10/05/22 topical cream with perineal applicator ibuprofen 800 mg tablet 800 mg PO TID 09/05/22 10/05/22 metformin 500 mg tablet 500 mg PO BID 09/05/22 10/05/22 Previous Rx's ?Medication ?Instructions ?Recorded albuterol sulfate 90 mcg/actuation 2 puff inhalation Q6H PRN 10/05/22 aerosol inhaler shortness of breath or wheezing #6.7 grams loratadine 10 mg tablet (Allergy 10 mg PO DAILY #30 tabs 10/05/22 Relief (loratadine)) prednisone 20 mg tablet 20 mg PO DAILY 5 days #5 tabs 10/05/22 diazepam 5 mg tablet (Valium) 5 mg PO BID-TID PRN muscle spasm 09/22/25 #15 tabs ketorolac 10 mg tablet 10 mg PO Q6H PRN pain #20 tabs 09/22/25 methylprednisolone 4 mg tablets in 4 mg PO QAM #21 ea 09/22/25 a dose pack (Medrol (Dani)) Allergies Allergy/AdvReac Type Severity Reaction Status Date / Time No Known Allergies (No Known Allergy Verified 09/22/25 20:49 Allergies*) Review of Systems Review of Systems: Yes all other systems are reviewed and are negative Constitutional: Constitutional: Denies fatigue and Denies fever(s) Gastrointestinal: Gastrointestinal: Denies abdominal pain Musculoskeletal: Musculoskeletal: Reports back pain, Reports muscle cramps, Denies muscle weakness, Denies numbness, Reports radiating pain into limb and Denies tingling Neurologic: Denies numbness and Denies tingling Endocrine: Endocrine: Denies fatigue [facility] Past Medical History Attestation statement: The following information was validated with the patient. Medical History Thrombosed external hemorrhoid Diabetes mellitus Surgical History Hx of shoulder surgery Family History Family History Other Prostate cancer Social History Social History Alcohol intake: never Patient Tobacco Use Status: Never used Tobacco Advance Directives: No Advance Directives Information Provided: No Physical Exam ED Vital Signs: Vital Signs - 24 hr 09/22/25 20:45 Temperature 98.6 F Pulse Rate 78 Respiratory Rate 18 Blood Pressure 195/104 H Pulse Oximetry 98 Oxygen Delivery Method Room Air BMI result Body Mass Index 24.1 Const Other: Alert well-appearing Orientation/consciousness: patient oriented x3 Resp Effort & Inspection: normal respiratory effort Cardio Other: Normal Peripheral perfusion Back/Spine/Pelvis Other: Patient is having spasm like pain with certain movements of the torso Skin Other: Warm dry no rash Neuro Other: Antalgic gait General: patient oriented x3, no focal motor deficits and CN's II-XI intact bilaterally Psych Other: Cooperative Medications Administered Discontinued Medications Generic Name Dose Route Start Last Admin Trade Name Huaq PRN Reason Stop Dose Admin Diazepam 10 mg 09/22/25 21:53 09/22/25 22:11 Diazepam 5 Mg Tablet PO 09/22/25 21:54 10 mg ONCE ONE Administration Ketorolac Tromethamine 15 mg 09/22/25 21:53 09/22/25 22:11 Ketorolac Tromethamine 15 Mg/Ml Vial IM 09/22/25 21:54 15 mg ONCE ONE Administration Prednisone 10 mg 09/22/25 21:53 09/22/25 22:11 Prednisone 10 Mg Tablet PO 09/22/25 21:54 10 mg ONCE ONE Administration Medical Decision Making Medical Decision Making [facility] Narrative: 69-year-old male with a chronic significant lumbar degenerative disc disease, presents with low back strain. Patient states he exercises and stretches on a regular basis secondary to his chronic pain. While in the shower overnight, the patient was performing his stretches, when he strained his back. The pain is radiating down bilateral lower extremities. Denies weakness of lower extremities, paresthesia, urinary retention or bowel incontinence. The patient did not fall. There was no trauma. Problem: Known lumbar degenerative disc disease History: Per patient I have considered the following differential diagnoses: Lumbar strain, lumbar radiculopathy, cauda equina, compression fracture Plan: There was no trauma, imaging not indicated at this time, he has had imaging in the past that reveals known significant degenerative changes. The patient is having symptoms of lumbar strain, no red flag signs symptoms concerning for cord compression. We will treat accordingly. Differential Diagnosis Differential Diagnoses: The differential diagnosis associated with the presentation includes See medical decision-making Admission/Observation Consideration of admission/observation: Escalation of care including admission/observation considered Not applicable Discharge Plan Discharge Clinical Impression: Strain of lumbar region Patient Disposition: Home, Self-Care Instructions: Low Back Strain (ED) Additional Instructions: You are being treated for lumbar strain. See home care instructions. Use the Valium as needed for pain this is a muscle relaxant, it will cause drowsiness, do not drive or operate machinery while taking the medication. Use the ketorolac as directed this is an anti-inflammatory take it with food. Use the steroid taper as directed, this is a 2nd anti-inflammatory. Follow up with your primary care provider, if your symptoms persist beyond a week, you may require physical therapy, your primary care provider can expedite this process for you. Prescriptions: New diazepam [Valium] 5 mg tablet 5 mg PO BID-TID PRN (Reason: muscle spasm) Qty: 15 0RF ketorolac 10 mg tablet 10 mg PO Q6H PRN (Reason: pain) Qty: 20 0RF Rx Instructions: maximum total duration of 5 days from all oral, intranasal, or parenteral formulations. The patient received an intramuscular dose of Toradol here in the emergency methylprednisolone [Medrol (Dani)] 4 mg tablets,dose pack 4 mg PO QAM Qty: 21 0RF Rx Instructions: Take per package instructions No Action prednisone 20 mg tablet 20 mg PO DAILY 5 Days Qty: 5 0RF albuterol sulfate 90 mcg/actuation HFA aerosol inhaler 2 puff inhalation Q6H PRN (Reason: shortness of breath or wheezing) Qty: 6.7 0RF loratadine [Allergy Relief (loratadine)] 10 mg tablet 10 mg PO DAILY Qty: 30 0RF atorvastatin 20 mg tablet 20 mg PO DAILY metformin 500 mg tablet 500 mg PO BID gabapentin 300 mg capsule PO ibuprofen 800 mg tablet 800 mg PO TID hydrocortisone acetate 2.5 % cream with perineal applicator 1 appl DC BID-QID PRN Print Language: French
[2025-09-22 22:38] VITALS: BP 195/104; PULSE 78; RESP 18; TEMP 37; O2SAT 98
== END 2025-09-22 22:54 | disposition home or self-care (01) ==
PROVIDERS: Emergency Provider Emergency Medicine Emergency Medical Services; PCP Internal Medicine
DX: S39.012A Strain of muscle, fascia and tendon of lower back, initial encounter (principal); X58.XXXA Exposure to other specified factors, initial encounter; Y93.89 Activity, other specified; Y92.9 Unspecified place or not applicable; Y99.9 Unspecified external cause status
CPT/HCPCS: 96372; 99283; 99284; J1885

== ENCOUNTER 2025-10-04 08:17 | Day surgery (SDC) | payer MEDICARE, SELFPAY ==
--- OUTSIDE RECORDS SUMMARY | 2024-05-14 06:00 | XMS_ITS ---
Author Organization Tad Guerra MD Address [address] [place], [place] [id number] Care Team Providers Care Marble Polisher Name Role Phone Tad Guerra Primary Care Provider [phone] Allergies No Known Allergies Results Component Value [...] Problem Status W/U Status Risk Notes Problem [id number] Lumbar degenerative disc disease (M51.36) Active confirmed Vital Signs Blood pressure systolic 140 mm Hg 05/14/20 24 Blood pressure diastolic 82 mm Hg 024 Height 64 in 05/14/2024 Weight 143 lbs 05/14/2024 BMI 24.54 kg/m2 05/14/2024 weight is down 5 pounds [facility] 11-12-23 Encounters Encounter Location Date Provider Diagnosis Tad Guerra MD [address] [place] [address] Drive [address] [place], [place] [phone] 05/14/2024 Tad Guerra Type 2 diabetes mellitus [...] MRI RESULTS . THEIR PHONE NUMBER IS [phone] [facility] Plan Of Treatment Medication Medication Name [...] MRI RESULTS . THEIR PHONE NUMBER IS [phone] [facility] Next Appt Details Provider Name:Tad guzman, 03/03/2026 07:30:00 AM, [address], [address], [place], [place], [phone], Provider Name:Tad guzman, 03/10/2026 10:00:00 AM, [address], [address], [place], [place], [phone], Provider Name:Tad Hogan ier, 09/06/2026 07:45:00 AM, [address], [address], [place], [place], [phone], Provider Name:Tad Hogan ier, 09/12/2026 01:00:00 PM, [address], [address], [place], [place], [phone], Progress Notes * RAH LEDOB:1955 (68 yo M)Acc No.[id number]:05/14/2024 Progress Notes Patient: RAH ANTONIO Provider: Jens Guerra MD :1955 A ge:68 Y S ex:Male Date:05/14/2024 Address:[address] [place], [place] [id number] Subjective: * Chief Complaints: * 6 MO [...] MRI RESULTS . THEIR PHONE NUMBER IS [phone] [facility]?? * Procedure Codes: 8 2947 ASSAY, GLUCOSE, BLOOD QUANT, Modifiers: QW [id number] GLYCATED HEMOGLOBIN TEST, Modifiers: QW * * Sign off status: Completed true * Provider: Jens Guerra MD Date: 0 05/14/2024 Generated for Arlin bean/Aditya/Daviditting on: 1 02:06 PM EDT History and Physical Notes * [...]
--- OUTSIDE RECORDS SUMMARY | 2024-08-18 06:30 | XMS_ITS ---
Author Organization Tad Guerra MD Address [address] [place], [place] [phone] Care Team Providers Care Turnstile Attendant Name Role Phone Tad Guerra Primary Care Provider Allergies No Known Allergies REASON FOR VISIT Covid, c/o sore throat, runny nose x 6 days, Video Medications Medication SIG (Take, Route, Frequency, Duration) Notes Start Date End Date Status Cyclobenzaprine HCl 5 MG as directed Ora lly one tab twice a day for 10 days 05/31/2022 Not-Taking traMADol HCl 50 MG 1 tablet as needed Orally three times a day as needed for 14 days 08/09/2022 Not-Taking Hydrocortisone Sky-Pramoxine 2.5-1 % 1 application Externally Three times a day for 30 days 09/04/2022 Not-Taking Clotrimazole-Betamethasone 1-0.05 % APPLY DAILY TO SKIN TO AFFECTED AREA TWICE A DAY FOR 7 DAYS Externally Twice a day for 7 days Not-Taking Ciclopirox 0.77 % 1 application Externally twice a day for 10 days 06/21/2023 Not-Taking Atorvastatin Calcium 20 MG TAKE 1 TABLET BY MOUTH EVERY DAY for 90 Active Paxlovid (300/100) 20 x 150 MG & 10 x 100MG 3 tablets Orally Twice a day for 5 day(s) 08/18/2024 Active metFORMIN HCl 500 MG take [address] tablet [address] [facility] twice daily with a meal for 90 days Orally twice a day for 90 days Active Ibuprofen 800 MG [facility] WITH FOOD OR MILK NEEDED FOR 30 DAYS for 30 Active Vital Signs Height 64 in 08/18/2024 Weight 140 lbs 08/18/2024 BMI 24.03 kg/m2 08/18/2024 weight at home is 140 BP not taken at home Encounters Encounter Location Date Provider Diagnosis Tad Guerra MD [address] [place] [phone] 08/18/2024 Tad Guerra COVID-19 U07.1 Assessments Encounter Date Diagnosis (ICD Code) Assessment Notes Treatment Notes Treatment Clinical Notes Section Notes 08/18/2024 COVID-19 (ICD-10 - U07.1) not feeling very ill but will send in paxlovid in case he needs it, patient verbaized understanding of medication and directions for use Plan Of Treatment Medication Medication Name Sig Start Date Stop Date Notes Paxlovid (300/100) 20 x 150 MG & 10 x 100MG 3 tablets Orally Twice a day for 5 day(s) 08/18/2024 Treatment Notes Assessment Notes COVID-19 not feeling very ill but will send in paxlovid in case he needs it, patient verbaized understanding of medication and directions for use Next Appt Details Provider Name:Tad guzman, 03/03/2026 07:30:00 AM, [address] [place] [address], [phone], Provider Name:Tad guzman, 03/10/2026 10:00:00 AM, [address] [place] [address], [phone], Provider Name:Tad guzman, 09/06/2026 07:45:00 AM, [address] [place] [address], [phone], Provider Name:Tad guzman, 09/12/2026 01:00:00 PM, [address] [place] [address], [phone], Progress Notes * VIRAL LE:1955 (68 yo M)Acc No.[id number]:08/18/2024 Patient: RAH ANTONIO Provider: Jens Guerra MD :1955 A ge:68 Y S ex:Male Date:08/18/2024 Address:[address] [place] [address] Subjective: * Chief Complaints: * C ovidC/o sore throat, runny nose x 6 daysVideo * HPI: S ymptom(s): Telehealth L ocation of provider rendering services: [address], [address], L ocation of patient: a t address listed in demographics for today's visit, P jonathan identification confirmed using: [place], , SSN, Insurance information, T elehealth method: T elephone only. Patient not visible to care provider., C onsent: P atient verbally consented to treatment, Patient verbally consented to billing insurance company, Patient informed of any privacy concerns related to method of visit, T otal time spend talking with patient (minutes) 2 1. patient is a 68 yo male video telehealth isit, here as emergency for covid/ was going to have surgery on back. had shot in back yesterday. and he both have it. had four days. has just a little sore throat. no cough. not very sick. * ROS: G eneral/Constitutional: Denies [place]. [...] Hospitalization/Major Diagno stic Procedure: * Medications: T akingIbuprofen 800 MG Tablet TAKE 1 TABLET BY MOUTH THREE TIMES A DAY WITH FOOD OR MILK NEEDED FOR 30 DAYS metFORMIN HCl 500 MG Tablet take 2 tablet by mouth twice daily with a meal for 90 days Orally twice a dayAtorvastatin Calcium 20 MG Tablet TAKE 1 TABLET BY MOUTH EVERY DAY Taking Ibuprofen 800 MG Tablet TAKE 1 TABLET BY MOUTH THREE TIMES A DAY WITH FOOD OR MILK NEEDED FOR 30 DAYS Taking metFORMIN HCl 500 MG Tablet take 2 tablet by mouth twice daily with a meal for 90 days Orally twice a dayTaking Atorvastatin Calcium 20 MG Tablet TAKE 1 TABLET BY MOUTH EVERY DAY Not-Taking/PRNCiclopirox 0.77 % Gel 1 application Externally [...] Verified] Objective: * Vitals: H t: 64, Wt:140, BMI:24.03 weight at home is 140 BP not taken at home. Assessment: * Assessment: 1. C OVID-19 - U07.1 (Primary) Plan: * Treatment: * Procedure Codes: * * Sign off status: Completed true * Provider: Jens Guerra MD Date: 0 08/18/2024 Generated for Arlin bean/Aditya/eTransmitting on: 1 02:06 PM EDT History and Physical Notes * HPI (History of Present Illness) Category Sub-Category Detail Notes Category Not es Symptom(s) Telehealth Location of [facility] rendering services:: [address], [address] patient is a 68 yo male video telehealth isit, here as emergency for covid/ was going to have surgery on back. had shot in back yesterday. and he both have it. had four days. has just a little sore throat. no cough. not very sick. Location of patient:: at address listed in demographics for today's visit Patient identification confirmed using:: Name, , SSN, Insurance information Telehealth method:: Telephone only. Eide ent not visible to care provider. Consent:: Patient verbally c onsented to treatment, Patient verbally consented to billing insurance company, Patient informed of any privacy concerns related to method of visit Total time spend talking with patient (m inutes): 21
--- OUTSIDE RECORDS SUMMARY | 2024-08-31 09:00 | XMS_ITS ---
Author Organization Tad Guerra MD Address [address] [place], [place] [phone] Care Team Providers Care Baked Goods Stock Clerk Name Role Phone Tad Guerra Primary Care [...] kg/m2 08/31/2024 weight is down 2 pounds [facility] e 9- Encounters Encounter Location Date Provider Diagnosis Tad Guerra MD [address] [facility] [address] [place], [place] [phone] 08/31/2024 Tad Guerra Hip pain, right M25. [...] right (ICD -10 - M25.551) referral to [facility] [place] 08/31/2024 Annual physical exam (ICD-10 - Z00.00) labs reviewed nd discussed with patient 08/31/2024 Murmur, cardiac (ICD -10 - R01.1) order faxed to [facility] Patient Reg 08/31/2024 Sciatica of right si [...] Assessment Notes Hip pain, right referral to [facility] [place] o Annual physical exam labs reviewed nd di scussed with patient Murmur, cardiac order faxed to [facility] P atient Reg Sciatica of right side [...] dm Provider Name:Tad guzman, 03/03/2026 07:30:00 AM, [address] [place] [address], [address], [phone], Provider Name:Tad guzman, 03/10/2026 10:00:00 AM, [address] [place] [address], [address], [phone], Provider Name:Tad guzman, 09/06/2026 07:45:00 AM, [address] [place] [address], [address], [phone], Provider Name:Tad guzman, 09/12/2026 01:00:00 PM, [address] [place] [address], [address], [phone], Progress Notes * NOE LEB:1955 (68 yo M)Acc No.[id number]:08/31/2024 Patient: RAH ANTONIO Provider: Jens Guerra MD :1955 A ge:68 Y S ex:Male Date:08/31/2024 Address:[address] [place], [place] [address] [id number] Subjective: * Chief Complaints: * A nnual [...] 08-18-24. * P ast Orders: L ab:Comprehensive [place]. Panel Fast (Order Date - 08/11/2024) (Collection [...] mg/dL Urine Blood Negative Negative - Specific [place] - Urine 1.025 1.005-1.025 - Urine Protein [...] H ip pain, right Notes: referral to [facility] [place] Referral To:Tamir Seymour Orthopedic Surgery Reason:Hip pain right 3. M urmur, cardiac I maging: ECHO Notes: order faxed to [facility] Patient Reg 4. S ciatica of right [...] MD Date: Generated for Arlin bean/Aditya/eTransmitting on: 02:04 PM EDT History and Physical Notes * [...]
--- OUTSIDE RECORDS SUMMARY | 2025-02-23 03:30 | XMS_ITS ---
Author Organization Tad Guerra MD Address [address] [place], [place] [phone] Care Team Providers Care Marriage And Family Therapist Name Role Phone Tad Guerra Primary Care Provider Results Component Value Reference Range Notes Liver Panel Reviewed date:02/23/2025 12:22:48 PM Interpretation: Performing Lab:[facility], [address] [place] [phone] Notes/Report: Bilirubin Total 0.5 0.0-1.0 mg/dL Bilirubin Direct 0.2 0.0-0.5 mg/dL Aspartate Amino Transferase 31 5-37 U/L Alanine Aminotransferase 29 0-40 U/L Total Protein 6.7 6.5-8.0 g/dL Albumin Level 4.1 3.5-5.0 g/dL Alkaline Phosphatase 66 39-117 U/L Glucose Fasting Reviewed date:02/23/2025 12:22:30 PM Interpretation: Performing Lab:[address] [phone] Notes/Report: Glucose Fasting 139 60-99 mg/dL A fasting glucose of 126 mg/dl or greater on more than one occasion is considered diagnostic of diabetes. Lipid Panel with Reflex Reviewed date:02/23/2025 12:22:12 PM Interpretation: Performing Lab:[facility], [address] [place] [phone] Notes/Report: Triglycerides 77 <150 mg/dL Desirable Triglyceride: less than 150 mg/dL Borderline High Triglyceride 150-199 mg/dL High Triglyceride: 200-499 mg/dL Very High Triglyceride: greater than or equal to 5OO mg/dL Cholesterol 140 <200 mg/dL Desirable Cholesterol: less than 200 mg/dL Borderline High Cholesterol: 200-239 mg/dL High Cholesterol: greater than 239 mg/dL LDL Cholesterol Calculated 60 <100 mg/dL Desirable LDL: less than 100 mg/dL Near Optimal/Above Optimal LDL: 110-129 mg/dL Borderline High LDL: 130-159 mg/dL High LDL: 160-189 mg/dL Very High LDL: greater than or equal to 190 mg/dL HDL Cholesterol 65 >40 mg/dL Desirable HDL: greater than 40 mg/dL Note: This HDL assay may give artificially low results in patients with liver disease. Hemoglobin A1c Reviewed date:02/23/2025 12:22:21 PM Interpretation: Performing Lab:[facility], [address] [place] [phone] Notes/Report: Hemoglobin A1c % 7.1 <6.0 % Hemoglobin A1C Reference Range Adults: 4.8 - 6.0 % Non diabetic: < 6.0 % Goal: < 7.0 % Additional Action Suggested: > 8.0 % Note: Hemoglobin A1c results are invalid for patients with abnormal amounts of HbF. Blood transfusions may impact the HbA1c concentration in the patient sample. Estimated Average Glucose 157 eAG = Estimated average glucose which is %A1C expressed as average glucose, using the formula of the C8G-Yadwioh Average Glucose study (ADAG), Diabetes Care, Vol.31,#8, Jun. 2007 REASON FOR VISIT fasting lipids Encounters Encounter Location Date Provider Diagnosis Tad Guerra MD [address] [place] [address] [place] [phone] 02/23/2025 Tad Guerra Type 2 diabetes toni itus without complication, without long-term current use of insulin E11.9 and Hypercholesterolemia E78.00 Assessments Encounter Date Diagnosis (ICD Code) Assessment Notes Treatment Notes Treatment Clinical Notes Section Notes 02/23/2025 Type 2 diabetes toni itus without complication, without long-term current use of insulin (ICD-10 - E11.9) 02/23/2025 Hypercholesterolemia (ICD-10 - E78.00) Plan Of Treatment Next Appt Details Provider Name:Tad krishnar, 03/03/2026 07:30:00 AM, [address], [address], [place], [phone], Provider Name:Tad Hogan ier, 03/10/2026 10:00:00 AM, [address], [address], [place], [phone], Provider Name:Tad Hogan ier, 09/06/2026 07:45:00 AM, [address], [address], [place], [place], [phone], Provider Name:Tad Hogan ier, 09/12/2026 01:00:00 PM, [address] [facility], Suite [facility], [place], [place], [phone], Progress Notes * RAH LEDOB:1955 (69 yo M)Acc No.[id number]:02/23/2025 Progress Note Patient: Jens EDWARDS RAH Provider: Jens Guerra MD :1955 A ge:69 Y S ex:Male Date:02/23/2025 Address:[address] [place] [address] [id number] Subjective: * Chief Complaints: * 1 . Fasting lipids. * Medical History: Objective: * Vitals: Assessment: * Assessment: 1. T ype 2 diabetes mellitus without complication, without long-term current use of insulin - E11.9 (Primary) 2 . H ypercholesterolemia - E78.00 Plan: * Treatment: 2. H ypercholesterolemia L AB: Liver Panel (Collection Date & Time - 02/23/2025 07:30 AM) L AB: Glucose Fasting (Collection Date & Time - 02/23/2025 07:30 AM) L AB: Lipid Panel with Reflex (Collection Date & Time - 02/23/2025 07:30 AM) L AB: Hemoglobin A1c (Collection Date & Time - 02/23/2025 07:30 AM) * Procedure Codes: 3 6415 VENIPUNCT, ROUTINE* * * The named appointment provid er may or may not be the originator of this progress note, and it is not deemed complete until electronically signed by the appointment provider. Sign off status: Pending * Provider: Jens Guerra MD Date: 0 02/23/2025 Generated for Arlin bean/Aditya/Rupa on: 1 02:01 PM EDT
--- OUTSIDE RECORDS SUMMARY | 2025-03-02 09:30 | XMS_ITS ---
Author Organization Tad Guerra MD Address [address] [place], [place] [phone] Care Team Providers Care Delicatessen Department Manager Name Role Phone Tad Guerra Primary Care Provider [phone] Allergies No Known Allergies Results Component Value Reference Range Notes Blood Urea Nitrogen Reviewed date:03/04/2025 06:45:15 PM Interpretation: Performing Lab:[facility], [address] [place] [phone] Notes/Report: Blood Urea Nitrogen 23 9-16 mg/dL Creatinine Reviewed date:03/04/2025 06:38:28 PM Interpretation: Performing Lab:[facility], [address] [place] [phone] Notes/Report: Creatinine 0.82 0.5-1.4 mg/dL Estimated Glomerular [...] Location Date Provider Diagnosis Tad Guerra MD [address] [place] [address] [place] [phone] 03/02/2025 Tad Guerra Type 2 diabetes toni [...] Details 03/02/2025 03/02/2025, needs co lonoscopy, Manuel Jyo Next Appt Details Provider Name:Tad Hogan ier, 03/03/2026 07:30:00 AM, [address] [place] [address], [address], [place], [place], [phone], Provider Name:Tad Hogan ier, 03/10/2026 10:00:00 AM, [address] [place] [address] Drive, Suite [facility], [place], [place], [phone], Provider Name:Tad Hogan ier, 09/06/2026 07:45:00 AM, [address] [place] [address], Suite [facility], [place], [place], [phone], Provider Name:Tad Hogan ier, 09/12/2026 01:00:00 PM, [address] [place] [address], [address], [place], [place], [phone], Progress Notes * RAH LEDOB:1955 (69 yo M)Acc No.[id number]:03/02/2025 Progress Notes Patient: RAH ANTONIO Provider: Jens Guerra MD :1955 A ge:69 Y S ex:Male Date:03/02/2025 Address:[address] [place], [place] [phone] Subjective: * Chief Complaints: * 6 month [...] 03/02/2025 Generated for Arlin bean/Aditya/eTdakshaitting on: 1 02:02 PM EDT History and Physical Notes * [...]
--- OUTSIDE RECORDS SUMMARY | 2025-07-13 05:53 | XMS_ITS ---
Author Organization Tad Guerra MD Address [address] [place] [phone] Care Team Providers Care Welder Repair Name Role Phone Tad Guerra Primary Care Provider REASON FOR VISIT refill Medications Medication SIG (Take, Route, Frequency, Duration) Notes Start Date End Date Status Atorvastatin Calcium 20 MG TAKE 1 TABLET BY MOUTH EVERY DAY Once a day for 90 days Active Encounters Encounter Location Date Provider Diagnosis Tad Guerra MD [address] [place] [address] Drive [address] [place] [phone] 07/13/2025 Tad Guerra Hypercholesterolemia E78.00 Assessments Encounter Date Diagnosis (ICD Code) Assessment Notes Treatment Notes Treatment Clinical Notes Section Notes 07/13/2025 Hypercholesterolemia (ICD-10 - E78.00) Plan Of Treatment Medication Medication Name Sig Start Date Stop Date Notes Atorvastatin Calcium 20 MG TAKE 1 TABLET BY MOUTH EVERY DAY Once a day for 90 days Next Appt Details Provider Name:Tad guzman, 03/03/2026 07:30:00 AM, [address] [place] [address], [address], [phone], Provider Name:Tad guzman, 03/10/2026 10:00:00 AM, [address] [place] [address], [address], [phone], Provider Name:Tad guzman, 09/06/2026 07:45:00 AM, [address], [address], [place], [place], [phone], Provider Name:Tad Hogan thomas, 09/12/2026 01:00:00 PM, [address], [address], [place], [place], [phone], Progress Notes * RAH LEDOB:1955 (69 yo M)Acc No.[id number]:07/13/2025 Patient: Jens RAH EDWARDS :1955 A ge:69 Y S ex:Male Address:[address] [place] [address], [address] * Refills Refill Atorvastatin Calcium Tablet, 20 MG, 90, TAKE 1 TABLET BY MOUTH EVERY DAY, Once a day, 90 days, Refills=3 * true * Date: Generated for Arlin bean/Aditya/Martitasmitting on: 02:05 PM EDT
--- OUTSIDE RECORDS SUMMARY | 2025-08-26 04:00 | XMS_ITS ---
Author Organization Tad Guerra MD Address [address] [place], [place] [phone] Care Team Providers Care Outsole Compressor Name Role Phone Tad Guerra Primary Care Provider [phone] Results Component Value Reference Range Notes Complete Blood Count Auto Di ff Reviewed date:08/26/2025 12:46:33 PM Interpretation: Performing Lab:[facility], [address] [place] [phone] Notes/Report: White Blood Count 7.3 4.8-10.8 X10*3/uL Red Blood Count 4.70 4.60-5.80 X10*6/uL Hemoglobin 14.0 14.0-18.0 g/dl Hematocrit 40.7 42.0-52.0 % Mean Corpuscular Volume 86.6 80.0-98.0 fL Mean Corpuscular Hemoglobin 29.8 27.0-33.0 pg Mean Corpuscular HGB Conc 34.4 31.0-36.0 g/dl Red Cell Distribution Width 13.8 11.0-16.0 % Platelet Count 320 160-400 X10*3/uL Mean Platelet Volume 9.1 9.4-12.4 fL Neutrophils Percent Auto 46.9 45-73 % Imm Gran Pct Auto 0.3 0.0-0.4 % Lymphocytes Percent Auto 32.8 20-40 % Monocytes Percent Auto 12.0 2-11 % Eosinophils Percent Auto 6.4 0-4 % Basophils Percent Auto 1.6 0-2 % NRBC Pct Auto 0.0 0.0-0.2 /100WBC Neutrophils Absolute Auto 3.4 2.0-8.3 x10*3/u L Imm Gran Abs Auto 0.02 0.00-0.03 X10*3/uL Lymphocytes Absolute Auto 2.4 1.2-4.9 X10*3/u L Monocytes Absolute Auto 0.9 0.1-1.2 X10*3/uL Eosinophils Absolute Auto 0.5 0.0-0.4 X10*3/u L Basophils Absolute Auto 0.1 0.0-0.2 X10*3/uL NRBC Abs Auto 0.000 0.0-0.012 X10*3/uL Lipid Panel Reviewed date:08/26/2025 12:32:07 PM Interpretation: Performing Lab:[address] [phone] Notes/Report: Triglycerides 55 <150 mg/dL Desirable Triglyceride: less than 150 mg/dL Borderline High Triglyceride 150-199 mg/dL High Triglyceride: 200-499 mg/dL Very High Triglyceride: greater than or equal to 5OO mg/dL Cholesterol 149 <200 mg/dL Desirable Cholesterol: less than 200 mg/dL Borderline High Cholesterol: 200-239 mg/dL High Cholesterol: greater than 239 mg/dL LDL Cholesterol Calculated 68 <100 mg/dL Desirable LDL: less than 100 mg/dL Near Optimal/Above Optimal LDL: 110-129 mg/dL Borderline High LDL: 130-159 mg/dL High LDL: 160-189 mg/dL Very High LDL: greater than or equal to 190 mg/dL HDL Cholesterol 70 >40 mg/dL Desirable HDL: greater than 40 mg/dL Note: This HDL assay may give artificially low results in patients with liver disease. Microalbumin, Random Reviewed date:08/26/2025 12:32:56 PM Interpretation: Performing Lab:[address] [phone] Notes/Report: Creatinine Urine 58.85 Microalbumin Urine < 5.0 Microalbum/Creatinine Ratio Ur TNP <30 ug/mg cr Unable to calculate albumin/creatinine ratio due to low microalbumin or creatinine result. Hemoglobin A1c Reviewed date:08/26/2025 12:35:06 PM Interpretation: Performing Lab:[facility], [address] [place] [phone] Notes/Report: Hemoglobin A1c % 7.3 <6.0 % Hemoglobin A1C Reference Range Adults: 4.8 - 6.0 % Non diabetic: < 6.0 % Goal: < 7.0 % Additional Action Suggested: > 8.0 % Note: Hemoglobin A1c results are invalid for patients with abnormal amounts of HbF. Blood transfusions may impact the HbA1c concentration in the patient sample. Estimated Average Glucose 163 eAG = Estimated average glucose which is %A1C expressed as average glucose, using the formula of the X8L-Kuolmgj Average Glucose study (ADAG), Diabetes Care, Vol.31,#8, Jun. 2007 UA ClnCatch+Micro w/rflx Cul t Reviewed date:08/26/2025 12:46:47 PM Interpretation: Performing Lab:[facility], [address] [place] [phone] Notes/Report: Urine, Clean Catch Color Urine Yellow Appearance Urine Clear PH 5.5 5.0-9.0 Glucose Urine UA Negative Negative mg/dL Urine Blood Negative Negative Specific [place] - Urine 1.010 1.005-1.025 Urine Protein Negative Neg-Trace mg/dL Urine Ketones Negative Negative mg/dL Nitrite Urine Negative Negative Leukocyte Esterase Urine Negative Negative RBC Urine 0-2 0-2 /HPF WBC Urine 0-5 0-5 /HPF Squamous Epithelial Cell Urine 0-2 0-2 /HPF Bacteria Urine None Seen None Seen Hyaline Casts Urine 0-2 0-2 /LPF REASON FOR VISIT yearly fasting labs Immunizations Vaccine Route Administration Date Status Comme nts Influenza High Dose IM Intramuscular 08/26/2025 Administer ed Encounters Encounter Location Date Provider Diagnosis Tad Guerra MD [address] [place], [place] [phone] 08/26/2025 Tad Guerra Blood tests for rout ine general physical examination Z00.00 ; Encounter for administration of vaccine Z23 ; Type 2 diabetes mellitus without complication, without long-term current use of insulin E11.9 and Hypercholesterolemia E78.00 Assessments Encounter Date Diagnosis (ICD Code) Assessment Notes Treatment Notes Treatment Clinical Notes Section Notes 08/26/2025 [address] tests for rout ine general physical examination (ICD-10 - Z00.00) 08/26/2025 Encounter for administration of vaccine (ICD-10 - Z23) 08/26/2025 Type 2 diabetes toni itus without complication, without long-term current use of insulin (ICD-10 - E11.9) 08/26/2025 Hypercholesterolemia (ICD-10 - E78.00) Plan Of Treatment Pending Test Test Name Order Date Comprehensive [place]. Panel Fast PSA,Total (Free>4and<10) 08/26/2025 Next Appt Details Provider Name:Tad Hogan ier, 03/03/2026 07:30:00 AM, [address] [place] [address], [address], [phone], Provider Name:Tad krishnar, 03/10/2026 10:00:00 AM, [address] [place] [address], [address], [phone], Provider Name:Tad Hogan ier, 09/06/2026 07:45:00 AM, [address] [place] [address], [address], [phone], Provider Name:Tad Hogan ier, 09/12/2026 01:00:00 PM, [address] [place] [address], [address], [phone], Progress Notes * BRETT LETOMDOB:1955 (69 yo M)Acc No.[id number]:08/26/2025 Progress Note Patient: RAH ANTONIO Provider: Jens Guerra MD :1955 A ge:69 Y S ex:Male Date:08/26/2025 Address:[address] [place] [address] [id number] Subjective: * Chief Complaints: * 1 . Yearly fasting labs. * Medical History: Objective: * Vitals: Assessment: * Assessment: 1. E ncounter for administration of vaccine - Z23 (Primary) 2 . B lood tests for routine general physical examination - Z00.00 3 . T ype 2 diabetes mellitus without complication, without long-term current use of insulin - E11.9 4 . H ypercholesterolemia - E78.00 Plan: * Treatment: 2. T ype 2 diabetes mellitus without complication, without long-term current use of insulin L AB: Comprehensive [place]. Panel Fast L AB: PSA,Total (Free>4and<10) L AB: Complete Blood Count Auto Diff (Collection Date & Time - 08/26/2025 08:00 AM) L AB: Lipid Panel (Collection Date & Time - 08/26/2025 08:00 AM) L AB: Microalbumin, Random (Collection Date & Time - 08/26/2025 08:00 AM) L AB: Hemoglobin A1c (Collection Date & Time - 08/26/2025 08:00 AM) L AB: UA ClnCatch+Micro w/rflx Cult (Collection Date & Time - 08/26/2025 08:00 AM) 3. H ypercholesterolemia L AB: Comprehensive [place]. Panel Fast L AB: PSA,Total (Free>4and<10) L AB: Complete Blood Count Auto Diff (Collection Date & Time - 08/26/2025 08:00 AM) L AB: Lipid Panel (Collection Date & Time - 08/26/2025 08:00 AM) L AB: Microalbumin, Random (Collection Date & Time - 08/26/2025 08:00 AM) L AB: Hemoglobin A1c (Collection Date & Time - 08/26/2025 08:00 AM) L AB: UA ClnCatch+Micro w/rflx Cult (Collection Date & Time - 08/26/2025 08:00 AM) * Immunizations: Influenza High Dose : 0.5 mL (Dose No:1) (Route: Intramuscular) given by Kinza Ramirez , Office Staff on Left Deltoid * Procedure Codes: 3 6415 VENIPUNCT, ROUTINE*, 75033 FLU VACC PRSV FREE INC ANTIG, G0008 ADMN FLU VAC NO FEE SCHED SAME DAY * * The named appointment provid er may or may not be the originator of this progress note, and it is not deemed complete until electronically signed by the appointment provider. Sign off status: Pending * Provider: Jens Guerra MD Date: 1 Generated for Arlin bean/Aditya/Martitasmitting on: 02:04 PM EDT
--- OUTSIDE RECORDS SUMMARY | 2025-09-09 09:00 | XMS_ITS ---
Author Organization Tad Guerra MD Address [address] [place], [place] [id number] Care Team Providers Care Shredder Tender Peat Name Role Phone Tad Guerra Primary Care [...] 500 MG TAKE 2 TABLET BY MO [facility] TWICE DAILY WITH A MEALS FOR 90 [...] Location Date Provider Diagnosis Tad Guerra MD [address] [place] [address] [place] [phone] 09/09/2025 Tad Guerra Type 2 diabetes toni [...] dm Provider Name:Tad guzman, 03/03/2026 07:30:00 AM, [address] [place] [address], [place] [address], [place], [place], [phone], Provider Name:Tad guzman, 03/10/2026 10:00:00 AM, [address] [place] [address], [address], [phone], Provider Name:Tad guzman, 09/06/2026 07:45:00 AM, [address], [address], [place], [place], [phone], Provider Name:Tad Hogan ier, 09/12/2026 01:00:00 PM, [address], [address], [place], [place], [phone], Progress Notes * RAH LEDOB:1955 (69 yo M)Acc No.[id number]:09/09/2025 Progress Notes Patient: RAH ANTONIO Provider: Jens Guerra MD :1955 A ge:69 Y S ex:Male Date:09/09/2025 Address:[address] [place], [place] [phone] Subjective: * Chief Complaints: * A nnual [...] mg/dL Urine Blood Negative Negative - Specific [place] - Urine 1.010 1.005-1.025 - Urine Protein [...] Date: 1 Generated for Arlin bean/Aditya/Martitasmitting on: 02:02 PM EDT History and Physical Notes [...]
--- OUTSIDE RECORDS SUMMARY | 2025-09-14 14:01 | XMS_ITS | Clinical Summary ---
Author Organization [facility] Address [address] [employer] [address] [address] Phone Care Team Providers Care Consulting Project Director Name Role Phone Tad Guerra MD Primary [...] REPLACEMENT MEDICARE PART A & B AETNA [facility] MEDICARE REPLACEMENT MEDICARE PART A & B AETNA O MEDICARE REPLACEMENT MEDICARE PART A & B [facility] MEDICARE REPLACEMENT MEDICARE PART A & B AET[employer] PPO MEDICARE REPLACEMENT MEDICARE PART A & B Care Teams Consulting Project Director Relationship Specialty Start Date End Date Tad Guerra MD [address] [place] [address] [place] [phone] PCP - General Internal Medicine 10/16/21 Additional Source Comments The information contained in this document represents components of the legal health record. It is not the complete legal health record.[facility]
--- OUTSIDE RECORDS SUMMARY | 2025-09-14 14:02 | XMS_ITS | Patient Health Record ---
Author Organization [facility] Address [address] [place] [address] Care Team Providers Care Product Communications Manager Name Role Phone Charlie WATTS, Tad Primary Care Provider Manuel Soliman [phone] Allergies No Known Allergies Reason For Referral No Information Medications Medication SIG (Take, Route, Frequency, Duration) Notes Start Date End Date Status metFORMIN HCl 500 MG 1 tablet with a james l Orally Once a day; Duration: 30 day(s) 07/01/2025 Active Ibuprofen 800 MG 1 tablet with food o r milk as needed Orally every 8 hrs 07/01/2025 Active Atorvastatin Calcium 20 MG 1 tablet Oral ly Once a day; Duration: 30 day(s) 07/01/2025 Active Immunizations Vaccine Route [...] Status Risk Notes Problem Colon cancer screening (056017476) Colon cancer screening (Z12.11) Active confirmed Problem Preprocedural examination (394173889800438) Preprocedural examination (Z01.818) Active confirmed Problem History of adenomatous polyp of colon (146201441) History of adenomatous polyp of colon (Z86.0101) [...] Diagnosis [facility] [address] [place] [address] 07/01/2025 Manuel Patel Colon cancer screeni ng [...] Provider Name:Manuel Patel , 10/04/2025 10:30:00 AM, [address] [place] [address], [phone], Insurance Providers Payer Name Payer Address Payer Phone Subscriber Number Group Number Insured Name Patient Relationship to Insured Coverage Start Date Coverage End Date [facility] [address] [place], [place] [id number] LEO LE Self - patient is the insured Medical (General) History Medical History History ICD Code NIDDM hyperlipidemia Denies [place],CVA,Lung disease,renal disease He has had a negative screen ing colonoscopy at age 48 and then a small tubular adenoma removed in [place] [address] Mesa. He has not had a colonoscopy since that time. Surgical History Surgery Date(Month/Year) Right rotator cuff
--- OUTSIDE RECORDS SUMMARY | 2025-09-14 14:03 | XMS_ITS | Patient Health Record ---
Author Organization Tad Guerra MD Address [address] [place], [place] [phone] Care Team Providers Care Shirring Machine Operator Automatic Name Role Phone Tad Guerra Primary Care Provider Allergies No Known Allergies Results Component Value Reference Range Notes Liver Panel Reviewed date:02/23/2025 12:22:48 PM Interpretation: Performing Lab:[facility], [address] [place] [phone] Notes/Report: Bilirubin Total 0.5 0.0-1.0 mg/dL Bilirubin Direct 0.2 0.0-0.5 mg/dL Aspartate Amino Transferase 31 5-37 U/L Alanine Aminotransferase 29 0-40 U/L Total Protein 6.7 6.5-8.0 g/dL Albumin Level 4.1 3.5-5.0 g/dL Alkaline Phosphatase 66 39-117 U/L Glucose Fasting Reviewed date:02/23/2025 12:22:30 PM Interpretation: Performing Lab:[facility], [address] [place] [phone] Notes/Report: Glucose Fasting 139 60-99 mg/dL A fasting glucose of 126 mg/dl or greater on more than one occasion is considered diagnostic of diabetes. Lipid Panel with Reflex Reviewed date:02/23/2025 12:22:12 PM Interpretation: Performing Lab:[facility], [address] [place] [phone] Notes/Report: Triglycerides 77 <150 mg/dL Desirable Triglyceride: [...] A1c Reviewed date:02/23/2025 12:22:21 PM Interpretation: Performing Lab:[facility], [address] [place] [phone] Notes/Report: Hemoglobin A1c % 7.1 <6.0 % [...] average glucose, using the formula of the E5W-Wrousyo Average Glucose study (ADAG), Diabetes Care, Vol.31,#8, 2007 Complete Blood Count Auto Di ff Reviewed date:08/26/2025 12:46:33 PM Interpretation: Performing Lab:[facility], [address] [place] [phone] Notes/Report: White Blood Count 7.3 4.8-10.8 X10*3/uL [...] Panel Reviewed date:08/26/2025 12:32:07 PM Interpretation: Performing Lab:[facility], [address] [place] [phone] Notes/Report: Triglycerides 55 <150 mg/dL Desirable Triglyceride: [...] Random Reviewed date:08/26/2025 12:32:56 PM Interpretation: Performing Lab:[address] [phone] Notes/Report: Creatinine Urine 58.85 Microalbumin Urine < 5.0 Microalbum/Creatinine Ratio Ur TNP <30 ug/mg cr Unable to calculate albumin/creatinine ratio due to low microalbumin or creatinine result. Hemoglobin A1c Reviewed date:08/26/2025 12:35:06 PM Interpretation: Performing Lab:[facility], [address] [place] [phone] Notes/Report: Hemoglobin A1c % 7.3 <6.0 % [...] average glucose, using the formula of the R6I-Rifzcxj Average Glucose study (ADAG), Diabetes Care, Vol.31,#8, Jun. 2007 UA ClnCatch+Micro w/rflx Cul t Reviewed date:08/26/2025 12:46:47 PM Interpretation: Performing Lab:[facility], [address] [place] [phone] Notes/Report: Urine, Clean Catch Color Urine Yellow Appearance Urine Clear PH 5.5 5.0-9.0 Glucose Urine UA Negative Negative mg/dL Urine Blood Negative Negative Specific [place] - Urine 1.010 1.005-1.025 Urine Protein Negative Neg-Trace mg/dL Urine Ketones Negative Negative mg/dL Nitrite Urine Negative Negative Leukocyte Esterase Urine Negative Negative RBC Urine 0-2 0-2 /HPF WBC Urine 0-5 0-5 /HPF Squamous Epithelial Cell Urine 0-2 0-2 /HPF Bacteria Urine None Seen None Seen Hyaline Casts Urine 0-2 0-2 /LPF Blood Urea Nitrogen Reviewed date:03/04/2025 06:45:15 PM Interpretation: Performing Lab:[address] [phone] Notes/Report: Blood Urea Nitrogen 23 9-16 mg/dL Creatinine Reviewed date:03/04/2025 06:38:28 PM Interpretation: Performing Lab:[facility], [address] [place] [phone] Notes/Report: Creatinine 0.82 0.5-1.4 mg/dL Estimated Glomerular Filt Rate > 60 Chronic Kidney Disease: Estimated GFR < 60 mL/min/1.73m2 Severe Kidney Disease: Estimated GFR < 15 mL/min/1.73m2 Occult Blood, Stool, Guaiac Reviewed date:09/09/2025 02:02:02 PM Interpretation:Negative Performing Lab: Notes/Report: Negative Occult Blood, Stool, Guaiac neg Hold Gold Reviewed date:02/23/2025 12:22:03 PM Interpretation: Performing Lab:[facility], [address] [place] [phone] Notes/Report: Hold Gold See Note Specimen held untested for 24 hours; Call to request Chemistry testing. Comprehensive Met. Panel Reviewed date:08/26/2025 12:43:23 PM Interpretation: Performing Lab:[facility], [address] [place] [phone] Notes/Report: Sodium 139 135-145 mmol/L Potassium 4.0 [...] Antigen Reviewed date:08/26/2025 12:34:57 PM Interpretation: Performing Lab:[facility], [address] [facility], [place] [phone] Notes/Report: Prostate Specific Antigen 2.68 <0.05-4.0 ng/mL PSA methodology: Blunt Alinity i Chemiluminescent Microparticle Immunoassay (CMIA) Reason For Referral Reason needs colonoscopy Diagnosis 1 Tubular adenoma (D36 .9) Referral Organization Tad Guerra MD Referring Provider First Name Tad Referring Provider Last Name Charlie Referring Provider Speciality Internal M edicine Referred Provider Manuel Joy Referred Provider Specialty Gastroentero logy General Notes Jenny Abad 0 03/02/2025 01:58:33 PM > fax colonoscopy from 2014, Jenny Abad 03/04/2025 02:02:41 PM >info faxed, Jenny Abad 03/05/2025 01:37:26 PM > patient called with [...] 500 MG TAKE 2 TABLET BY MO UT TWICE DAILY WITH A MEALS FOR 90 DAYS for 90 Active Immunizations Vaccine Route Administration Date Status [...] Status W/U Status Risk Notes Problem Balanitis (03850588) Balanitis (N48.1) Active c onfirmed Problem 936610884 Irritable bowel syndrome with diarrhea (K58.0) Active confirmed Problem 442640534 Tubular adenoma (D36.9) Active confirmed Problem 0779412817310 Tinnitus, bilate ral (H93.13) Active confirmed Problem Sciatica (64148535) Acute right- sided low back pain with right-sided sciatica (M54.41) Active confirmed Problem 60540509 Sciatica of righ t side (M54.31) Active confirmed Problem Pure hypercholesterolemia (554795170) Pure hypercholesterolemia (E78.00) Active confirmed Problem 74651340 Hypercholesterol emia (E78.00) Active confirmed Problem 965016100 Type 2 diabetes mellitus without complication, without long-term current use of insulin (E11.9) Active confirmed Problem 84579264 Lumbar degenerat zenaida disc disease (M51.36) Active confirmed Vital Signs Blood pressure diastolic 70 mm Hg 09/09/2025 Height 64 in 09/09/2025 Blood pressure systolic 144 mm Hg 09/09/2025 Weight 141 lbs 09/09/2025 BMI 24.2 kg/m2 09/09/2025 Encounters Encounter Location Date Provider Diagnosis Tad Guerra MD [address] [place] [phone] 02/23/2025 Tad Guerra Type 2 diabetes toni itus without complication, without long-term current use of insulin E11.9 and Hypercholesterolemia E78.00 Tad Gu[address] MD [address] [place] [id number] 08/26/2025 Tad Guerra Blood tests for rout ine general physical examination Z00.00 ; Encounter for administration of vaccine Z23 ; Type 2 diabetes mellitus without complication, without long-term current use of insulin E11.9 and Hypercholesterolemia E78.00 Tad Guerra MD [address] [place] [address] Drive [address] [place] [phone] 03/02/2025 Tad Guerra Type 2 diabetes toni itus without complication, without long-term current use of insulin E11.9 ; Hypercholesterolemia E78.00 ; Tubular adenoma D36.9 and Acute right-sided low back pain with right-sided sciatica M54.41 Tad Guerra MD [address] [place] [address] Drive [address] [place] [phone] 09/09/2025 Tad Guerra Type 2 diabetes toni itus without complication, without long-term current use of insulin E11.9 ; Annual physical exam Z00.00 ; Hypercholesterolemia E78.00 ; Skin lesion L98.9 ; Colon cancer screening Z12.11 and Depression screening Z13.31 Tad Guerra MD [address] [place] [phone] 07/13/2025 Tad Guerra Hypercholesterolemia E78.00 Assessments Encounter Date Diagnosis (ICD Code) Assessment Notes Treatment Notes Treatment Clinical Notes Section Notes 02/23/2025 Type 2 diabetes mellitus without complication, without long-term current use of insulin (ICD-10 - E11.9) 08/26/2025 Blood tests for henna ine general physical examination (ICD-10 - Z00.00) 08/26/2025 Encounter for administration of vaccine (ICD-10 - Z23) 03/02/2025 Type 2 diabetes mellitus without complication, without long-term current use of insulin (ICD-10 - E11.9) stable, will contnue current regiment 09/09/2025 Type 2 diabetes mellitus without complication, without long-term current use of insulin (ICD-10 - E11.9) doing well on meds and diet, will continue current regiment 09/09/2025 Annual physical exam (ICD-10 - Z00.00) labs reviewed and discussed with patient 07/13/2025 Hypercholesterolemia (ICD-10 - E78.00) 02/23/2025 Hypercholesterolemia (ICD-10 - E78.00) 08/26/2025 Type 2 diabetes mellitus without complication, without long-term current use of insulin (ICD-10 - E11.9) 03/02/2025 Hypercholesterolemia (ICD-10 - E78.00) doing well on meds, will continue current regiment 09/09/2025 Hypercholesterolemia (ICD-10 - E78.00) doing well on meds, will continue current regiment 08/26/2025 Hypercholesterolemia (ICD-10 - E78.00) 03/02/2025 Tubular adenoma (ICD -10 - D36.9) schedule colonoscopy with dr joy 09/09/2025 Skin lesion (ICD-10 - L98.9) is from an injury at work years ago 03/02/2025 Acute right-sided lo w back pain with right-sided sciatica (ICD-10 - M54.41) has resolved 09/09/2025 Colon cancer screeni ng (ICD-10 - Z12.11) guaiac negative 09/09/2025 Depression screening (ICD-10 - Z13.31) negative screen Plan Of Treatment Pending Test Test Name Order Date ECHO 08/31/2024 Comprehensive [place]. Panel Fast PSA,Total (Free>4and<10) 08/26/2025 Next Appt Details Provider Name:Tad krishnar, 03/03/2026 07:30:00 AM, [address] [place] [address], [address], [phone], Provider Name:Tad krishnar, 03/10/2026 10:00:00 AM, [address] [place] [address], [phone], Provider Name:Tad Hogan ier, 09/06/2026 07:45:00 AM, [address] [place] [address], [address], [phone], Provider Name:Tad krishnar, 09/12/2026 01:00:00 PM, [address] [place] [address], [address], [phone], Insurance Providers Payer Name Payer Address Payer Phone Subscriber Number Group Number Insured Name Patient Relationship to Insured Coverage Start Date Coverage End Date [employer] MEDICARE ADVANTAGE [address] PRIYA TELLO [id number] RAH LE Self - patient is the insured MEDICARE [employer] [address] [place] [address] [id number] RAH LE Self - patient is the insured Medical (General) History Medical History History ICD Code diabetes since age 43 colonoscopy 2015. due in 10 years
--- NOTE | 2025-09-29 14:02 | HO.ANESPROP2 ---
Documented by User: Rosangela Al NP 09/29/25 14:02 HPI - Anesthesia Eval Consult details Narrative: 69yo M for Colonoscopy PMFSH Active Problems Active Problems: All Active Problems Lumbar degenerative disc disease (Acute) Thrombosed external hemorrhoid (Acute) Diabetes mellitus (Acute) Past Medical History Medical History Hyperlipidemia Thrombosed external hemorrhoid Diabetes mellitus Family History Family History Other Prostate cancer Surgical History Surgical History H/O colonoscopy Hx of shoulder surgery Social History Social History Are you a primary cardiac care nurse to a significant other at home: No Do you presently have visiting nurse or other home services: No Alcohol intake: never Patient Tobacco Use Status: Never used Tobacco Second Hand Smoke Exposure: No Use of substances other than those prescribed or required for medical reasons: No Have you been hit, kicked, punched, or otherwise hurt by someone within the past year? If so, by whom?: No Are you DNR?: No Advance Directives: No Advance Directives Information Provided: Yes Advance Directives on File: No Meds Allergies Allergy/AdvReac Type Severity Reaction Status Date / Time No Known Allergies (No Known Allergy Verified 09/22/25 20:49 Allergies*) Home Medications ?Medication ?Instructions ?Recorded ?Confirmed ?Last Taken ?Type atorvastatin 20 mg tablet 20 mg PO DAILY 09/05/22 09/30/25 Unknown History metformin 500 mg tablet 500 mg PO BID 09/05/22 09/30/25 Unknown History Assessment and Plan Assessment Anesthesia Assessment: Chart Reviewed Documented by User: Rohit Miller MD 10/04/25 08:58 PMFSH Past Medical History Medical History Hyperlipidemia Thrombosed external hemorrhoid Diabetes mellitus Functional capacity: independent ambulation Family History Family History Other Prostate cancer Family history of problems with anesthesia: No Surgical History Surgical History H/O colonoscopy Hx of shoulder surgery History of Problems with Anesthesia: No Social History Social History Are you a primary cardiac care nurse to a significant other at home: No Do you presently have visiting nurse or other home services: No Alcohol intake: never Patient Tobacco Use Status: Never used Tobacco Second Hand Smoke Exposure: No Use of substances other than those prescribed or required for medical reasons: No Have you been hit, kicked, punched, or otherwise hurt by someone within the past year? If so, by whom?: No Are you DNR?: No Advance Directives: No Advance Directives Information Provided: Yes Advance Directives on File: No Meds Allergies Allergy/AdvReac Type Severity Reaction Status Date / Time No Known Allergies (No Known Allergy Verified 09/22/25 20:49 Allergies*) Home Medications ?Medication ?Instructions ?Recorded ?Confirmed ?Last Taken ?Type atorvastatin 20 mg tablet 20 mg PO DAILY 09/05/22 09/30/25 Unknown History metformin 500 mg tablet 500 mg PO BID 09/05/22 09/30/25 Unknown History Exam Exam Date and Time: 10/04/2025 Airway TM Dist: >3cm Neck ROM: Full Loose/Missing/Broken Teeth: No Heart: normal Lungs: normal Other: normal Assessment and Plan Assessment Anesthesia Assessment: Anesthesia Plan Discussed Final Anesthetic Review Family History of Problems with Anesthesia: No History of Problems with Anesthesia: No NPO: Yes ASA Class: II Final Preanesthetic Review: No Changes in Pt Med Stat and Consent Obtained/Reviewed Patient Risk: Low Procedure Risk: Low Anesthetic Plan Anesthetic Plan: MAC: Disposition: Standard PACU
[2025-09-30 13:36] VITALS: BMI 24.3
[2025-10-04 08:46] VITALS: BP 155/80; PULSE 87; RESP 16; TEMP 36.5; O2SAT 97; BMI 23.3
[2025-10-04] MEDS: Lactated Ringers 1,000 ML 100 ML IVCONT (08:48)
[2025-10-04 08:55] LABS: Glucose, Whole Blood 141 mg/dL (60-115)
[2025-10-04 10:57] VITALS: BP 98/66; PULSE 72; RESP 15; TEMP 36.1; O2SAT 99
--- NOTE | 2025-10-04 10:57 | PM.OP ---
Brief Operative Note Date of Service: 10/04/25 Pre-op diagnosis: Screening Post-op diagnosis: other (Diverticulosis) Procedure: Colonoscopy to the cecum and TI Surgeon: Manuel Patel MD Anesthesia: MAC Was an Emissions Testing Technician used for this Procedure?: No Estimated blood loss (mL): 0 Pathology: none sent Condition: stable Disposition: PACU
[2025-10-04 11:12] VITALS: BP 122/79; PULSE 75; RESP 18; TEMP 36.1; O2SAT 98
--- NOTE | 2025-10-04 21:36 | OP_ITS ---
DATE OF SERVICE: 10/04/2025 SURGEON: Manuel Patel MD INDICATIONS: The patient presents for evaluation of colorectal cancer screening. Full consent was obtained from him for this, including risks of bleeding and perforation. PREOPERATIVE DIAGNOSIS: Colorectal cancer screening. POSTOPERATIVE DIAGNOSIS: PROCEDURE PERFORMED: Colonoscopy to the cecum and terminal ileum. ESTIMATED BLOOD LOSS: COMPLICATIONS: ANESTHESIA: Preop medication used, monitored anesthesia care. ASSISTANTS: SPECIMENS: POSTOPERATIVE DIAGNOSES: Colorectal cancer screening, mild sigmoid diverticulosis, and small internal hemorrhoids. DESCRIPTION OF PROCEDURE: The patient was placed in left lateral decubitus position. The digital rectal exam revealed no abnormalities. The Olympus video pediatric colonoscope was entered into the rectum, advanced easily to the cecum. Once in the cecum, I did enter the pouch with appendiceal orifice with normal-appearing ileocecal valve. The terminal ileum was cannulated and appeared normal. The scope was withdrawn back in the colon. The entire cecum and ileocecal valve appeared normal. The scope was then slowly withdrawn assessing all mucosal surfaces carefully. After some suctioning with irrigation, the preparation was excellent for the most part. I did not visualize any sign of polyps, colitis, nor angiodysplasia. There was a mild amount of sigmoid diverticulosis. In the rectum, scope was retroflexed visualizing internal hemorrhoids, but no other pathology. The rectal mucosa appeared normal. The scope was straightened and withdrawn from the patient. He tolerated the procedure well and was returned to the recovery area in stable condition. IMPRESSION: 1. Mild diverticulosis. 2. Internal hemorrhoids. PLAN: Given today's negative exam, 2 negative colonoscopies in the past, no family history of colon cancer, and his age, I do not think he needs any further screening colonoscopies. As such, he will see me on a p.r.n. basis. MD ARIAS Ba/[place] / [phone]
== END 2025-10-04 11:59 | disposition home or self-care (01) ==
PROVIDERS: PCP Internal Medicine; Visit Provider Internal Medicine
PROC: 0DJD8ZZ Inspection of Lower Intestinal Tract, Via Natural or Artificial Opening Endoscopic (ICD-10-PCS; CPT 45378; principal; 2025-10-04 09:30)
DX: Z12.11 Encounter for screening for malignant neoplasm of colon (principal); Z86.0101 Personal history of adenomatous and serrated colon polyps; K64.8 Other hemorrhoids; K57.30 Diverticulosis of large intestine without perforation or abscess without bleeding; E11.9 Type 2 diabetes mellitus without complications
CPT/HCPCS: G0121; 82947; J2003; J2371; J2704; J3010